=== PATIENT | female | born 1995 | race Caucasian/White ===

== ENCOUNTER 2020-04-17 08:26 | Outpatient (REF) | payer OTHER, SELFPAY ==
[2020-04-17 08:46] LABS: COVID-19 Test Negative (Negative)
== END 2020-04-17 08:27 | disposition home or self-care (01) ==
LOC: HO.EMPCOV 08:26
PROVIDERS: PCP Family Medicine; Visit Provider Internal Medicine
DX: Z20.822 Contact with and (suspected) exposure to COVID-19 (principal)
CPT/HCPCS: 36415; 87635; C9803

== ENCOUNTER 2021-10-26 14:05 | Outpatient (REF) | payer OTHER, SELFPAY ==
--- NOTE | ~2021-10-26 | US_ITS ---
EXAMINATION: US VENOUS DOPPLER LOWER EXTREMITY, RIGHT CLINICAL INFORMATION: Lower extremity varicose veins. COMPARISON: None TECHNIQUE: Color-flow triplex imaging and compression Doppler were performed to evaluate both the deep and the superficial systems of the right lower extremity. To evaluate the superficial system, the examination was performed in the upright position. Color-flow Doppler ultrasound and compression ultrasound were utilized. In addition, maneuvers were utilized to demonstrate reflux. Of note, the patient was only able to tolerate right lower extremity examination and declined evaluation of her left lower extremity. FINDINGS: 1. DEEP VENOUS DOPPLER ULTRASOUND: Common Femoral Vein: Compressible, normal respiratory variation and augmented flow. Femoral Vein: Compressible, normal color flow and augmentation. Popliteal Vein: Compressible, normal augmentation. Deep Reflux: There is no evidence of reflux in the deep system in either the common femoral vein or the popliteal vein. There is no evidence of a Blas's cyst. 2. SUPERFICIAL VENOUS DOPPLER ULTRASOUND: Great Saphenous Vein: Saphenofemoral junction/proximal thigh: 0.8 cm; greater than 3.2 seconds of reflux. Mid thigh: 0.5 cm; greater than 3.1 seconds of reflux. Above knee: 0.4 cm; no evidence of reflux. At knee: 0.4 cm; greater than 2.6 seconds of reflux. Below knee: 0.4 cm; greater than 2.1 seconds of reflux. Mid calf: 0.2 cm; greater than 1.8 seconds of reflux. Ankle: 0.4 cm; greater than 2.2 seconds of reflux. DUPLICATED GREAT SAPHENOUS VEIN: Lateral, measuring 2 mm at the junction without evidence of reflux. SMALL SAPHENOUS VEIN: Proximal: 3 cm; no evidence of reflux. Distal: 2 cm; no evidence of reflux. VEIN OF GIACOMINI: None imaged. PERFORATORS: Thigh and below knee measuring 2 mm and 3 mm, respectively. Neither guest services attendant demonstrates reflux. VARICOSITIES: Mid thigh, above knee, below knee and mid calf measuring between 2 mm and 6 mm. All imaged varicosities demonstrate reflux greater than 1.3 seconds. US/US venous duplex LE RT IMPRESSION: 1. Right great saphenous venous insufficiency beginning at the saphenofemoral junction/proximal thigh. 2. Multiple refluxing right lower extremity varicosities. 3. No evidence of DVT or deep venous insufficiency.
== END 2021-10-26 14:06 | disposition home or self-care (01) ==
LOC: HO.US 14:05
PROVIDERS: PCP Family Medicine; Visit Provider Surgery Vascular Surgery
DX: I83.893 Varicose veins of bilateral lower extremities with other complications (principal)
CPT/HCPCS: 93971

== ENCOUNTER 2021-11-07 11:34 | Outpatient (REF) | payer OTHER, SELFPAY ==
--- NOTE | ~2021-11-07 | US_ITS ---
EXAMINATION: US LOWER EXTREMITY VENOUS (REFLUX EXAM), UNILATERAL LEFT CLINICAL INDICATION: This is a 26-year-old female with venous insufficiency and varicose veins COMPARISON: None. TECHNIQUE: Color flow triplex imaging and compression Doppler was performed to evaluate both the deep and the superficial systems bilaterally. To evaluate the superficial system, the examination was performed in the upright position. Color-flow Doppler ultrasound and compression ultrasound were utilized. In addition, maneuvers were utilized to demonstrate reflux. FINDINGS: 3. DEEP VENOUS ULTRASOUND OF THE LEFT LOWER EXTREMITY: Common Femoral Vein: Compressible, normal respiratory variation and augmented flow. Femoral Vein: Compressible, normal color flow and augmentation. Popliteal Vein: Compressible, normal augmentation. Deep Reflux: There is no evidence of reflux in the deep system in either the common femoral vein or the popliteal vein. There is no evidence of a Blas's cyst. 4. SUPERFICIAL ULTRASOUND WITH DOPPLER OF LEFT LOWER EXTREMITY: GREAT SAPHENOUS VEIN: Saphenofemoral Junction: 0.9 cm Mid Thigh: 0.3 cm Above Knee: 0.4 cm Below Knee: 0.2 cm Mid Calf: 0.1 cm Ankle: 0.3 cm GSV REFLUX: No evidence of reflux. DUPLICATED GREAT SAPHENOUS VEIN: There is a 0.3 cm duplicated great saphenous vein without reflux. SMALL SAPHENOUS VEIN: Proximal: 0.2 cm Distal: 4.1 cm SSV REFLUX: No evidence of reflux. VEIN OF GIACOMINI: None Imaged. PERFORATORS: There are multiple 0.2 cm perforators in the mid thigh, mid calf without evidence of reflux. VARICOSITIES: There are multiple 0.3 cm, 0.5 cm, 0.8 cm varicose veins in the mid thigh and calf, respectively, without evidence of reflux. US/US venous duplex LE LT IMPRESSION: 1. There is a patent left great saphenous vein, duplicated left great saphenous vein, left small saphenous vein without evidence of reflux. 2. There are left leg varicose veins without evidence of reflux.
== END 2021-11-07 11:35 | disposition home or self-care (01) ==
LOC: HO.US 11:34
PROVIDERS: Visit Provider Surgery Vascular Surgery
DX: I83.12 Varicose veins of left lower extremity with inflammation (principal)
CPT/HCPCS: 93971

== ENCOUNTER → 2022-01-11 10:26 | Outpatient (BNVA) | payer OTHER, SELFPAY | PROVIDERS: PCP Family Medicine; Visit Provider Surgery Vascular Surgery | DX: I83.11 Varicose veins of right lower extremity with inflammation (principal) | CPT/HCPCS: 36482 ==

== ENCOUNTER 2022-01-14 08:10 | Outpatient (REF) | payer OTHER, SELFPAY ==
--- NOTE | ~2022-01-14 | US_ITS ---
EXAMINATION: US VENOUS ULTRASOUND WITH DOPPLER LOWER EXTREMITY, RIGHT CLINICAL INFORMATION: History of venous insufficiency, varicose veins, right leg pain. 3 days s/p venaseal procedure. COMPARISON: 11/07/2021 TECHNIQUE: Ultrasound of the deep veins is performed from the hip to the calf with compression sonography and color and pulse Doppler assessment. Spectral analysis with color-flow imaging is performed. FINDINGS: The common femoral vein is compressible and exhibits a normal phasic waveform; this suggests that the iliac veins are widely patent above. Within the proximal thigh, the visualized profunda femoris vein is normal. There has been a successful venaseal procedure. The greater saphenous vein is occluded to within 0.9 cm of the saphenofemoral junction. Superficial femoral vein is patent in the proximal, mid and distal thigh. Popliteal vein is normal to the level of the trifurcation. On compression guzman scale and color Doppler images, the visualized deep calf veins are patent. No evidence of Blas's cyst. US/US venous duplex LE RT IMPRESSION: * No evidence of deep vein thrombosis in the right lower extremity. * There has been a successful venaseal procedure. The greater saphenous vein is occluded to within 0.9 cm of the saphenofemoral junction. There is no propagation of thrombus into the femoral vein.
== END 2022-01-14 08:11 | disposition home or self-care (01) ==
LOC: HO.US 08:10
PROVIDERS: Visit Provider Surgery Vascular Surgery
DX: M79.604 Pain in right leg (principal)
CPT/HCPCS: 93971

== ENCOUNTER 2022-05-29 11:15 | Outpatient (REF) | payer OTHER, SELFPAY ==
[2022-05-29 14:36] LABS: Ferritin 29 ng/mL (10-122)
== END 2022-05-29 11:16 | disposition home or self-care (01) ==
LOC: HO.LAB 11:15
PROVIDERS: PCP Family Medicine; Visit Provider Physician Assistant Medical
DX: L65.9 Nonscarring hair loss, unspecified (principal)
CPT/HCPCS: 36415; 82728

== ENCOUNTER 2022-06-04 14:47 | Outpatient (REF) | payer OTHER, SELFPAY ==
[2022-06-04 15:40] LABS: Estimated Average Glucose 100 mg/dL; Hemoglobin A1c % 5.1 %
[2022-06-04 16:22] LABS: TSH reflex Free T4 0.69 uIU/mL (0.32-4.0)
[2022-06-05 13:09] LABS: DHEA Sulfate 202 mcg/dL (14-349); Follicle Stimulating Hormone 4.8 mIU/mL; Lutenizing Hormone 10.7 mIU/mL; Prolactin 5.7 ng/mL
[2022-06-12 10:42] LABS: Testosterone, Free 5.5 pg/mL (0.1-6.4); Testosterone, Total 32 ng/dL (2-45)
[2022-06-15 21:43] LABS: Estradiol Free 1.45 pg/mL; Estradiol, Ultrasensitive 56 pg/mL
== END 2022-06-04 14:48 | disposition home or self-care (01) ==
LOC: HO.LAB 14:47
PROVIDERS: PCP Family Medicine; Visit Provider Nurse Practitioner Family
DX: N92.6 Irregular menstruation, unspecified (principal)
CPT/HCPCS: 36415; 82627; 82670; 82681; 83001; 83002; 83036; 83498; 84146; 84402; 84403; 84443

== ENCOUNTER 2022-07-17 14:23 | Outpatient (REF) | payer OTHER, SELFPAY ==
[2022-07-17 15:07] LABS: Influenza A PCR NEGATIVE (Negative); Influenza B PCR NEGATIVE (Negative); Resp Syncy Virus RNA Qual PCR NEGATIVE (Negative); SARS COV2 PCR INHOUSE NEGATIVE (Negative)
== END 2022-07-17 14:24 | disposition home or self-care (01) ==
LOC: HO.LNP 14:23
PROVIDERS: Visit Provider Nurse Practitioner Family
DX: Z20.822 Contact with and (suspected) exposure to COVID-19 (principal); J00 Acute nasopharyngitis [common cold]
CPT/HCPCS: 0241U

== ENCOUNTER 2022-08-05 07:01 | Outpatient (REF) | payer OTHER, SELFPAY ==
[2022-08-05 07:16] LABS: MANUAL DIFF FLAG NO
[2022-08-05 08:05] LABS: Basophils Absolute Auto 0.1 X10*3/uL (0.0-0.2); Basophils Percent Auto 0.8 % (0-2); Eosinophils Absolute Auto 0.2 X10*3/uL (0.0-0.4); Eosinophils Percent Auto 1.8 % (0-4); Hematocrit 40.9 % (37.0-47.0); Hemoglobin 13.4 g/dl (12.0-16.0); Imm Gran Abs Auto 0.02 X10*3/uL (0.00-0.03); Imm Gran Pct Auto 0.2 % (0.0-0.4); Lymphocytes Absolute Auto 2.8 X10*3/uL (1.2-4.9); Lymphocytes Percent Auto 33.6 % (20-40); Mean Corpuscular HGB Conc 32.8 g/dl (31.0-35.0); Mean Corpuscular Hemoglobin 27.9 pg (27.0-33.0); Mean Platelet Volume 9.3 fL (9.4-12.3); Monocytes Absolute Auto 0.6 X10*3/uL (0.1-1.2); Monocytes Percent Auto 6.9 % (2-11); Neutrophils Absolute Auto 4.7 x10*3/uL (2.0-8.3); Neutrophils Percent Auto 56.7 % (45-73); Platelet Count 359 X10*3/uL (160-400); Red Blood Count 4.81 X10*6/uL (4.20-5.50); Red Cell Distribution Width 11.9 % (11.0-16.0); White Blood Count 8.3 X10*3/uL (4.8-10.8)
[2022-08-05 10:16] LABS: Alanine Aminotransferase 36 U/L (0-31); Albumin Level 4.2 g/dL (3.5-5.0); Alkaline Phosphatase 83 U/L (39-117); Anion Gap 13 (12-20); Aspartate Amino Transferase 28 U/L (5-31); Bilirubin Total 0.6 mg/dL (0.0-1.0); Blood Urea Nitrogen 15 mg/dL (9-16); Calcium 9.3 mg/dL (8.4-10.2); Carbon Dioxide 23 mmol/L (22-29); Chloride 108 mmol/L (96-108); Cholesterol 167 mg/dL; Estimated Glomerular Filt Rate > 60; Glucose Random 79 mg/dL (60-115); HDL Cholesterol 64 mg/dL; LDL Cholesterol Calculated 83 mg/dl; Potassium 4.1 mmol/L (3.3-5.1); Sodium 140 mmol/L (135-145); Total Protein 6.7 g/dL (6.5-8.0); Triglycerides 104 mg/dL
== END 2022-08-05 07:02 | disposition home or self-care (01) ==
LOC: HO.LAB 07:01
PROVIDERS: PCP Family Medicine; Visit Provider Family Medicine
DX: Z13.0 Encounter for screening for diseases of the blood and blood-forming organs and certain disorders involving the immune mechanism (principal); Z20.2 Contact with and (suspected) exposure to infections with a predominantly sexual mode of transmission; Z13.220 Encounter for screening for lipoid disorders; Z13.6 Encounter for screening for cardiovascular disorders; E55.0 Rickets, active
CPT/HCPCS: 36415; 80053; 80061; 82306; 85025

== ENCOUNTER 2022-08-07 07:17 | Outpatient (REF) | payer OTHER, SELFPAY ==
--- NOTE | ~2022-08-07 | US_ITS ---
EXAMINATION: US ABDOMEN LIMITED CLINICAL INFORMATION: Elevated liver enzymes. COMPARISON: None available. TECHNIQUE: Real-time imaging of the right upper quadrant abdominal viscera. FINDINGS: PANCREAS: Normal. LIVER: Liver echotexture is slightly increased. The liver is normal in size. The liver contour is normal. No focal hepatic lesion. There is no intrahepatic biliary duct dilatation seen. GALLBLADDER: Normal. The gallbladder is physiologically distended without evidence of stones, sludge, polyps, wall thickening or pericholecystic fluid. COMMON BILE DUCT: Normal in caliber measuring 0.3 cm in diameter. RIGHT KIDNEY: Normal. No hydronephrosis. No renal calculi or focal parenchymal lesions. The kidney measures 12.6 cm in maximum dimension. FREE FLUID: None. US/US abdomen limited IMPRESSION: Slightly echogenic liver.
== END 2022-08-07 07:18 | disposition home or self-care (01) ==
LOC: HO.US 07:17
PROVIDERS: PCP Family Medicine; Visit Provider Family Medicine
DX: R74.8 Abnormal levels of other serum enzymes (principal)
CPT/HCPCS: 76705

== ENCOUNTER 2023-06-24 14:51 | Outpatient (AMB) | payer OTHER, SELFPAY ==
--- NOTE | 2023-06-24 14:55 | A.OFFVIS_ITS ---
Intake Vital Signs 3 06/24/23 15:04 Height 5 ft 7 in Weight 242 lb 6 oz BMI 38.0 BP 135/67 Blood Pressure Location Lt brachial Position Sitting Pulse 90 Intake Visit Reasons: Cyst~ RT thigh Intake Note: Patient is seen in office for evaluation and treatment of a cyst of the right thigh. Pt c/o: admits to cyst on the right thigh, onset one year, on and off gets inflamed, painful, at times has a white spot but no discharge or opening denies redness or any other concerns Roustabout Supervisor Required: No Accompanied by: Self / Same As Patient Allergies No Known Allergies Allergy (Verified 06/24/23 15:00) Medication List - Last Reconciled 06/24/23 by Matthew Pinzon MD minoxidil 2.5 mg PO DAILY HPI HPI Comments 2 History of Present Illness0 Details 28-year-old female patient, ultrasound t ech at [facility] [place], presenting with painful cyst in the posterior right leg. She 1st noted the cyst approximately 1 year ago. She has had multiple recurrent episodes of inflammation where the cyst increases in size and becomes more painful. She denies any bleeding or discharge from the site. The site then resolved and becomes much smaller. The pain increases with sitting when inflamed. She is requesting excision of this painful cyst. [facility] Medical History Scoliosis Alopecia Family History Mother Varicose veins of bilateral lower extremities with other complications Social History Alcohol intake: current Alcohol intake frequency: holidays/special occasions only Patient Tobacco Use Status: Never used Tobacco Review of Systems Const All systems reviewed & are unremarkable except as noted in HPI and below Physical Exam Const General: cooperative and no acute distress Nutritional Appearance: well nourished Orientation/consciousness: patient oriented x3 Limitations: no limitations HEENT Head: Yes normocephalic and Yes atraumatic Ears: hearing grossly normal bilaterally Resp Effort & Inspection: normal respiratory effort, no audible wheezes, no cough and no respiratory distress Cardio Jugular venous distension: no JVD GI Inspection: Yes normal to inspection Back/Spine/Pelvis Back/spine/pelvis image: 2 1. 1 cm palpable cyst located in the posterior right thigh just below the buttock crease, small area of redness noted in the overlying skin. Findings are suggestive of a epidermal inclusion cyst. Skin Other: Warm, dry, no rash Neuro General: patient oriented x3 Extrem General: Yes no clubbing, cyanosis or edema Assessment & Plan Assessment & Plan (1) Epidermal inclusion cyst: Comment: Right posterior thigh Code(s): L72.0 - Epidermal cyst Plan 28-year-old female patient with recurrent episodes of infection involving and epidermal inclusion cyst in the posterior right thigh. Examination there is a 1 cm area of redness with a central punctum suggestive of a epidermal inclusion cyst. We discussed excision of this epidermal inclusion cyst as an office based procedure. After discussion of the procedure, risks, and alternatives, she consents to the surgery. Coding Level of Care Code New Pt Level 4 (61097) Diagnoses Epidermal inclusion cyst L72.0
[2023-06-24 15:04] VITALS: BP 135/67; PULSE 90; BMI 38.0
== END 2023-06-24 15:09 | disposition home or self-care (01) ==
PROVIDERS: PCP Family Medicine; Referring Provider Family Medicine; Visit Provider Surgery
DX: L72.0 Epidermal cyst (principal)
CPT/HCPCS: 99204

== ENCOUNTER → 2023-06-24 14:51 | Outpatient (BNVA) | payer OTHER, SELFPAY | PROVIDERS: PCP Family Medicine; Referring Provider Family Medicine; Visit Provider Surgery ==

== ENCOUNTER 2023-07-08 15:16 | Outpatient (AMB) | payer OTHER, SELFPAY ==
--- NOTE | 2023-07-08 15:22 | A.OFFVIS_ITS ---
Intake Vital Signs 07/08/23 15:26 Height 5 ft 7 in Weight 242 lb 8 oz BMI 38.0 BP 150/88 H Blood Pressure Location Lt brachial Position Sitting Pulse 83 Intake Visit Reasons: Exc Cyst~ RT thigh Intake Note: Patient is seen for office procedure, excision of right thigh cyst. Pt c/o; no concerns or changes since last visit Retail Security Professional Required: No Accompanied by: Self / Same As Patient Allergies No Known Allergies Allergy (Verified 07/08/23 15:28) HPI HPI Comments History of Present Illness Details Patient returns today for excision of an epidermal inclusion cyst posterior right leg PFSH Medical History Scoliosis Alopecia Family History Mother Varicose veins of bilateral lower extremities with other complications Social History Alcohol intake: current Alcohol intake frequency: holidays/special occasions only Patient Tobacco Use Status: Never used Tobacco Physical Exam Vital Signs: Last Vital Signs Pulse 83 07/08/23 15:26 BP 150/88 H 07/08/23 15:26 BMI result Body Mass Index 38.0 Office Procedures Excision Details: Preoperative diagnosis:Epidermal inclusion cyst posterior right leg Postoperative diagnosis: Same Procedure: Excision of epidermal inclusion cyst posterior right leg Surgeon: Matthew Pinzon MD Dog Boarder: None Anesthesia: Lidocaine 1% with epinephrine Indications for procedure: 28-year-old female patient presenting with a painful cyst of the posterior right leg Operative findings: Noninfected epidermal inclusion cyst posterior right leg 1 cm diameter Specimen: Epidermal inclusion cyst right posterior leg Estimated blood loss: 2 mL Complications: None Procedure details: Patient was brought to the procedure room and placed in a prone position. The site of surgery was confirmed by the patient in the posterior right leg. After assuring informed consent, the skin was prepped with Betadine and draped in a sterile fashion. Local anesthesia was then infiltrated around the palpable cyst. An elliptical incision was then created oriented transversely around the lesion. The lesion measured approximately 1 cm in diameter. The incision was carried down through the subcutaneous tissue and around the cyst wall. This was then passed off the table and sent to pathology for further examination. After assuring hemostasis, the skin was closed using interrupted 3-0 nylon sutures. Sterile dressings consisting of 2 x 2 gauze and Tegaderm were then applied. The patient tolerated the procedure well. She was discharged to home in stable condition. 25891-[id number]/arms/legs 0.6-1cm Procedure code (CPT) selection complete Assessment & Plan Assessment & Plan (1) Epidermal inclusion cyst: Comment: Right posterior thigh Code(s): L72.0 - Epidermal cyst Plan Patient will return in 1 week for suture removal. Orders: Orders Surgical Today L72.0 - Epidermal cyst Coding Level of Care Code Procedure Only Diagnoses Epidermal inclusion cyst L72.0 CPT Codes Trunk/Arms/Legs - CPT: 62885-sqbtl/arms/legs 0.6-1cm ([id number])
[2023-07-08 15:26] VITALS: BP 150/88; PULSE 83; BMI 38.0
== END 2023-07-08 15:49 | disposition home or self-care (01) ==
PROVIDERS: PCP Family Medicine; Visit Provider Surgery
DX: L72.0 Epidermal cyst (principal)
CPT/HCPCS: 11402

== ENCOUNTER 2023-07-08 15:16 | Outpatient (REF) | payer OTHER, SELFPAY | END 2023-07-08 15:17 | disposition home or self-care (01) | LOC: HO.LNP 15:16 | PROVIDERS: PCP Family Medicine; Visit Provider Surgery | DX: L72.0 Epidermal cyst (principal) | CPT/HCPCS: 88304 ==

== ENCOUNTER 2023-07-15 15:30 | Outpatient (AMB) | payer OTHER, SELFPAY ==
[2023-07-15 15:35] VITALS: BP 137/71; PULSE 85; BMI 39.0
--- NOTE | 2023-07-15 15:35 | MHC.OFFVIS ---
Intake Vital Signs 07/15/23 15:35 Height 5 ft 7 in Weight 249 lb BMI 39.0 BP 137/71 Blood Pressure Location Rt brachial Position Sitting Pulse 85 Intake Visit Reasons: S/p exc cyst right thigh-in office Intake Note: Patient is seen in office for post op assessment post office proc, excision of right thigh cyst. Pt c/o: redness, feels like it is inflamed. Denies oozing. Pharmacovigilance Specialist Required: No Accompanied by: Self / Same As Patient Allergies No Known Allergies Allergy (Verified 07/15/23 15:36) HPI HPI Comments History of Present Illness Details Patient returns 1 week following excision of a lesion of the posterior right leg. She reports some soreness possibly due to sitting on the incision. She returns today for suture removal. Pathology revealed benign findings. [facility] Medical History Scoliosis Alopecia Family History Mother Varicose veins of bilateral lower extremities with other complications Social History Alcohol intake: current Alcohol intake frequency: holidays/special occasions only Patient Tobacco Use Status: Never used Tobacco Physical Exam Vital Signs: Last Vital Signs Pulse 85 07/15/23 15:35 BP 137/71 07/15/23 15:35 BMI result Body Mass Index 39.0 Const General: comfortable and no acute distress Extrem Other: Excision site in the posterior right leg is clean, dry and intact. Sutures removed and the wounds found to be well healed. Assessment & Plan Assessment & Plan (1) Epidermal inclusion cyst: Comment: Right posterior thigh Code(s): L72.0 - Epidermal cyst Plan Patient returns for wound check following excision of lesion in the right leg. She tolerated the procedure well the wounds are healing nicely. She should follow up as needed. Coding Level of Care Code Global (31514) Diagnoses Epidermal inclusion cyst L72.0
== END 2023-07-15 15:43 | disposition home or self-care (01) ==
PROVIDERS: PCP Family Medicine; Visit Provider Surgery
DX: L72.0 Epidermal cyst (principal)
CPT/HCPCS: 99024

== ENCOUNTER → 2023-07-15 15:30 | Outpatient (BNVA) | payer OTHER, SELFPAY | PROVIDERS: PCP Family Medicine; Visit Provider Surgery ==

== ENCOUNTER 2023-07-30 07:11 | Outpatient (REF) | payer OTHER, SELFPAY ==
[2023-07-30 08:55] LABS: Estimated Average Glucose 108 mg/dL; Hemoglobin A1c % 5.4 % (<6.0)
== END 2023-07-30 07:12 | disposition home or self-care (01) ==
LOC: HO.LAB 07:11
PROVIDERS: Visit Provider Nurse Practitioner Family
DX: N92.6 Irregular menstruation, unspecified (principal)
CPT/HCPCS: 36415; 83036

== ENCOUNTER 2023-08-06 08:58 | Outpatient (REF) | payer OTHER, SELFPAY ==
--- NOTE | ~2023-08-06 | US_ITS ---
EXAMINATION: US PELVIS CLINICAL INFORMATION: Irregular menses. COMPARISON: None available. TECHNIQUE: Ultrasound of the pelvis is performed using both transabdominal and transvaginal transducers along with Doppler. Transvaginal imaging is performed due to inadequate visualization transabdominally. FINDINGS: UTERUS: The uterus is anteverted and measures 10.4 x 3.7 x 4.4 cm. The double wall endometrial thickness is 10 mm. The uterus is smooth in contour and has normal myometrial echogenicity. No visible fibroid. There is a large nabothian cysts present measuring 1.3 cm. ADNEXA: Both ovaries are visualized. There is normal color flow to the adnexa. There is no ovarian torsion. There is no pelvic ascites or fluid collection. Right ovary measures 3.7 x 2.7 x 2.7 cm for a volume of 14.1 mL and contains innumerable follicular cysts suggesting polycystic ovary disease. Left ovary measures 3.7 x 1.9 x 2.1 cm for a volume of 7.7 mL and contains multiple subserosal cysts suggesting polycystic ovary disease. US/US pelvic and transvaginal IMPRESSION: 1. Normal-appearing uterus. 2. Bilateral ovarian cysts suggesting polycystic ovary disease.
== END 2023-08-06 08:59 | disposition home or self-care (01) ==
LOC: HO.US 08:58
PROVIDERS: PCP Family Medicine; Visit Provider Nurse Practitioner Family
DX: N92.6 Irregular menstruation, unspecified (principal)
CPT/HCPCS: 76830; 76856

== ENCOUNTER 2023-08-12 08:08 | Outpatient (REF) | payer OTHER, SELFPAY ==
--- NOTE | ~2023-08-12 | XR_ITS ---
EXAMINATION: XR SCOLIOSIS SERIES CLINICAL INFORMATION: Thoracolumbar spinal scoliosis. COMPARISON: No relevant prior imaging. TECHNIQUE: Standing upright PA and lateral radiographs of the total spine were obtained. FINDINGS: Cervical spinal segmentation cannot be assessed. Otherwise there is a normal complement of 12 rib-bearing thoracic vertebra and 5 nonrib-bearing lumbar vertebra. There is no identifiable dysraphism. Global parmeters Coronal truncal balance: 3.1 cm negative Coronal regional parameters (Grace angle) Primary curve: 37 degrees, apex left at T11-T12 Secondary curve: 21 degrees, apex right at T7 Lungs are clear and well expanded. No focal consolidative disease, pleural effusion, or pneumothorax. The cardiac silhouette and upper mediastinal contours are normal. Visualized bowel gas pattern is normal. Solid organ contours are normal. No worrisome lytic or blastic osseous lesion within the [id number] of this examination. XR/XR scoliosis 1V IMPRESSION: Spinal scoliosis as described above. No identifiable dysraphism.
== END 2023-08-12 08:09 | disposition home or self-care (01) ==
LOC: HO.XRAY 08:08
PROVIDERS: PCP Family Medicine; Visit Provider Family Medicine
DX: M41.85 Other forms of scoliosis, thoracolumbar region (principal)
CPT/HCPCS: 72081

== ENCOUNTER 2023-08-14 07:21 | Outpatient (REF) | payer OTHER, SELFPAY ==
[2023-08-14 07:32] LABS: MANUAL DIFF FLAG NO
[2023-08-14 08:21] LABS: Basophils Absolute Auto 0.1 X10*3/uL (0.0-0.2); Eosinophils Absolute Auto 0.1 X10*3/uL (0.0-0.4); Eosinophils Percent Auto 1.9 % (0-4); Hematocrit 42.5 % (37.0-47.0); Imm Gran Abs Auto 0.02 X10*3/uL (0.00-0.03); Imm Gran Pct Auto 0.3 % (0.0-0.4); Lymphocytes Absolute Auto 2.3 X10*3/uL (1.2-4.9); Lymphocytes Percent Auto 32.2 % (20-40); Mean Corpuscular HGB Conc 32.9 g/dl (31.0-35.0); Mean Corpuscular Hemoglobin 28.6 pg (27.0-33.0); Mean Corpuscular Volume 86.9 fL (80.0-98.0); Mean Platelet Volume 9.7 fL (9.4-12.3); Monocytes Absolute Auto 0.5 X10*3/uL (0.1-1.2); Monocytes Percent Auto 6.7 % (2-11); Neutrophils Absolute Auto 4.2 x10*3/uL (2.0-8.3); Neutrophils Percent Auto 57.9 % (45-73); Platelet Count 319 X10*3/uL (160-400); Red Blood Count 4.89 X10*6/uL (4.20-5.50); Red Cell Distribution Width 11.8 % (11.0-16.0); White Blood Count 7.2 X10*3/uL (4.8-10.8)
[2023-08-14 08:54] LABS: Alanine Aminotransferase 31 U/L (0-31); Albumin Level 4.4 g/dL (3.5-5.0); Alkaline Phosphatase 78 U/L (39-117); Anion Gap 11 (12-20); Aspartate Amino Transferase 22 U/L (5-31); Bilirubin Total 0.6 mg/dL (0.0-1.0); Blood Urea Nitrogen 12 mg/dL (9-16); Calcium 9.7 mg/dL (8.4-10.2); Carbon Dioxide 24 mmol/L (22-29); Chloride 106 mmol/L (96-108); Cholesterol 147 mg/dL (<200); Estimated Glomerular Filt Rate > 60; Glucose Random 82 mg/dL (60-115); HDL Cholesterol 54 mg/dL (>40); LDL Cholesterol Calculated 73 mg/dL (<100); Sodium 137 mmol/L (135-145); Total Protein 7.3 g/dL (6.5-8.0); Triglycerides 100 mg/dL (<150)
[2023-08-14 09:15] LABS: Vitamin D 25-OH Total 18.2 ng/mL (>30)
== END 2023-08-14 07:22 | disposition home or self-care (01) ==
LOC: HO.LAB 07:21
PROVIDERS: PCP Family Medicine; Visit Provider Family Medicine
DX: Z13.0 Encounter for screening for diseases of the blood and blood-forming organs and certain disorders involving the immune mechanism (principal); Z20.2 Contact with and (suspected) exposure to infections with a predominantly sexual mode of transmission
CPT/HCPCS: 36415; 80053; 80061; 82306; 85025

== ENCOUNTER → 2024-02-13 08:12 | Outpatient (BNVA) | payer OTHER, SELFPAY | PROVIDERS: PCP Family Medicine; Visit Provider Internal Medicine | DX: Z13.89 Encounter for screening for other disorder (principal) | CPT/HCPCS: 99203 ==

== ENCOUNTER → 2024-02-18 07:54 | Outpatient (BNVA) | payer OTHER, SELFPAY | PROVIDERS: PCP Family Medicine; Visit Provider Internal Medicine | DX: Z13.89 Encounter for screening for other disorder (principal) | CPT/HCPCS: 99213 ==

== ENCOUNTER → 2024-02-27 08:18 | Outpatient (BNVA) | payer OTHER, SELFPAY | PROVIDERS: PCP Family Medicine; Visit Provider Internal Medicine | DX: Z13.89 Encounter for screening for other disorder (principal) | CPT/HCPCS: 99213 ==

== ENCOUNTER → 2024-03-05 08:03 | Outpatient (BNVA) | payer OTHER, SELFPAY | PROVIDERS: PCP Family Medicine; Visit Provider Internal Medicine | DX: Z13.89 Encounter for screening for other disorder (principal) | CPT/HCPCS: 99213 ==

== ENCOUNTER → 2024-03-17 08:09 | Outpatient (BNVA) | payer OTHER, SELFPAY | PROVIDERS: PCP Family Medicine; Visit Provider Internal Medicine | DX: Z13.89 Encounter for screening for other disorder (principal) | CPT/HCPCS: 99213 ==

== ENCOUNTER 2024-03-24 15:25 | Outpatient (RCR) | payer OTHER, SELFPAY ==
--- NOTE | 2024-02-27 13:51 | MHC.OT.EP ---
[address] [phone] Occupational Therapy Plan of Care Patient Name: Irish Lee Date of Evaluation: 02/27/24 Diagnosis: R thumb tendonitis Pain Location: volar side of hand Has not had been since Friday ; slight dull ache Pain Score: 0 Pain Scale Used: Numeric (0 - 10) Aggravating Factors: use of thumb/ use of US Alleviating Factors: resting/ relaxing Assessment: Pt is a 28 yr. 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 She reports pain while using the ultrasound machine and went to work connections to address her pain. She was on modified duty for 1 week and then took a week off to rest her wrist/thumb. Pt reports no pain today, has full AROM of her thumb, wrist, has a negative Finklestein, and a slight decreased hand draw bench operator. She reports fatigue of her R thumb nut denies pain and paresthesia. She has been referred to skilled OT therapy to manage sx's and increase the functional use of her R hand and thumb Frequency and Duration: The patient will be seen Short Term Goals: Pt will be compliant w/ her HEP Pt will be compliant w/ ergonomics while working to prevent thumb pain Shelter Goals: Pt will increase R hand draw bench operator to 90lbs Pt will RPLOF Treatment Plan: Therapeutic Exercise Therapeutic Activity Home Exercise Program Splinting Neuro Re-ed Patient Education Desensitization/Sensory Re-ed Edema Control ADL Training Ultrasound NMES Iontophoresis Paraffin Fluidotherapy MHP Cold Packs Joint Mobilization Soft Tissue Mobilization Kinesiotaping Other (see comments) Electronically Signed By: Lesia Ndiaye OTR/L Please Sign and return to therapist. Thank you once again for your referral.
--- NOTE | 2024-03-24 15:51 | MHC.OT.DC ---
[address] [phone] F: [phone] Occupational Therapy Discharge Note Patient Name: Irish Lee Provider: Micky Panchal Diagnosis: R thumb tendonitis Date of Surgery: Date of Evaluation: 02/27/24 Date of Discharge: Treatments to Date: 8 Cancellations to Date: No Shows to Date: Discharge Status: Achieved Goals Discharge Summary: Pt has met her LTGs and is Ok to be d/charged; pt is in agreement Electronically Signed By: Lesia Ndiaye OTR/L Reviewed/agree with student documentation: N/A Therapist: Please Sign and return to therapist, thank you for your referral.
== END 2024-03-24 15:51 | disposition home or self-care (01) ==
LOC: HO.OT 15:25
PROVIDERS: PCP Family Medicine; Visit Provider Internal Medicine
DX: M79.644 Pain in right finger(s) (principal)
CPT/HCPCS: 97035; 97110; 97140; 97165; 97535

== ENCOUNTER 2024-03-29 09:14 | Outpatient (REF) | payer OTHER, SELFPAY | END 2024-03-29 09:15 | disposition home or self-care (01) | LOC: HO.HOSX 09:14 | DX: M65.4 Radial styloid tenosynovitis [de Quervain] (principal); M79.641 Pain in right hand | CPT/HCPCS: 20550; 73130; 99202; J1100; J2003 ==

== ENCOUNTER 2024-03-29 11:01 | Outpatient (AMB) | payer OTHER, SELFPAY ==
--- OUTSIDE RECORDS SUMMARY | 2024-03-29 11:06 | XMS_ITS | Data Portability ---
Author Organization [facility] [email or web address], [email or web address]_admin Address [address] [place] [id number] Care Team Providers Care Ignition Expert Name Role Phone STEPHANIE MELENDEZ Primary Care Provider [phone] AMARILYS WRIGHT Press Reader PAMELLA PETERSEN Vascular Surgeon DAVINA SMITH Rehabilitation Therapist Assessment Encounter Date Assessment Date Assessment LastModified by Organization Details LastModified Time 08/11/2023 08/11/2023 consider metformin, wegovy consider hand surgeon referral consider ORTHO and PT referral for scoliosis Not available 08/11/2023 09:05:22 Plan of Treatment Reminders Order Date Submit Date Provider Last Modified By Organization Details Last Modified Time Details Appointments Physical 30 2024 03:30P M Fco Mondragon CNP Not available Not available Not available Lab prolactin , serum 2022 023 [email or web address] [facility], [address] [place] [address], [id number], 06/11/2022 08:54:14 testoster one, free + total, serum 2022 023 [email or web address] [facility], [address] [place] [address], [id number], 06/11/2022 08:54:15 estradiol , serum 2022 023 ALLY [facility], [address] [place] [address], [id number], 06/17/2022 12:17:14 lh + FSH, serum 2022 023 [email or web address] [facility], [address] [place] [address], [id number], 06/11/2022 08:54:15 HbA1c (hemoglob in A1c), blood 2022 023 [email or web address] [facility], [address] [place] [address], [id number], 06/14/2022 10:55:31 dhea-sulf ate, serum 2022 023 [email or web address] [facility], [address] [place] [address], [id number], 06/11/2022 08:54:15 TSH, ultra-sen sitive, serum 2022 023 [email or web address] [facility], [address] [place] [address], [id number], 06/14/2022 10:55:31 17-hydrox yprogeste jennifer, QN, serum 2022 023 [email or web address] [facility], [address] [place] [address], [id number], 06/14/2022 11:01:37 CBC w/ auto diff 2022 023 ALLY [facility], [address] [place] [address], [id number], 08/05/2022 11:20:02 lipid panel, serum 2022 023 ALLY [facility], [address] [place] [address], [id number], 08/05/2022 11:20:02 vitamin D, 25-hydrox y, total, serum 2022 023 ALLY [facility], [address] [place] [address], [id number], 08/05/2022 11:20:02 CMP, serum or plasma 2022 023 ALLY [facility], [address] [facility], [place] [address], [place], [address], 08/05/2022 11:20:01 vaginal pathogens panel, VIKTORIA+probe , vaginal fluid 2023 024 ALLY [facility], [address] , [place], [address], 07/21/2023 20:06:45 HbA1c (hemoglob in A1c), blood 2023 024 ALLY [facility], [address] , [place], [address], 08/12/2023 08:53:46 CBC w/ auto diff 2023 024 [place] [facility], [address] [place] [address], [place] [address], [place], [address], 08/14/2023 11:27:20 lipid panel, serum 2023 024 [place] [facility], [address] [place] [address], [place] [address], [place], [address], 08/14/2023 11:27:20 vitamin D, 25-hydrox y, total, serum 2023 024 ALLY [facility], [address] [place] [address], [address], [address], 08/14/2023 11:27:20 TSH, ultra-sen sitive, serum 2023 024 5 [facility], [address] , [place], [address], 09/09/2023 15:47:29 CMP, serum or plasma 2023 024 ALLY [facility], [address] [place] [address], [address], [address], 08/14/2023 11:27:20 Referral occupatio nal therapist referral 2023 024 [email or web address] 5 [facility], [address], [place], [address], 02/16/2024 09:54:21 Procedures None recorded. Surgeries None recorded. Imaging US, pelvis - complete pelvic US 2023 024 [email or web address] [facility] (Imaging), [address] [place], [address], 08/26/2023 08:31:40 XR, spine, scoliosis series - please measure if possible 2023 024 [facility] ([facility]), [address] [place], [address], 08/13/2023 06:41:35 Medication Orders clotrimaz ole 1 % topical cream 2022 023 [place] [id number], [address] [place], [address], 08/01/2022 09:53:43 Patient TargetsNo targets recorded. Patient Instructions Encounter Date Encounter Id Patient Instructions Last Modified By Organization Details Last Modified Time 06/04/2022 [id number] body mass index: care instructions Not available 06/04/2022 11:03:50 Reviewed screeni ng intervals for Pap smear and discussed importance of annual meal packer visit regardless of when next pap smear is due. Reviewed breast self-awareness (monthly self-checks the week after menses as optimal time) with patient, and screening intervals for breast cancer. I also discussed daily calcium and vitamin D intake, she should maintain at least 1000 mg calcium and 600 IU vitamin D in her daily diet and perform weight bearing exercise to prevent osteoporosis. Reviewed self skin monitoring for early detection of skin cancer and use of sunscreen >SPF 30/skin coverings during peak sun exposure hours to prevent skin cancer. Recommended immunizations including HPV, flu, and COVID-19 vaccines. Encouraged healthy balanced diet and regular weekly exercise. Advised her to call with any concerns or questions at any time. [email or web address] Not available 06/04/2022 11:01:36 08/01/2022 [id number] athlete's foot: care instructions Not available 08/01/2022 09:53:41 body mass index: care instructions Not available 08/01/2022 09:56:21 learning about healthy weight Not available 08/01/2022 09:56:21 Reason for Referral Occupational Therapist Refer ral for Tendinitis of right hand Referring Physician: Stephanie Melendez, Family Medicine, Encounter Date: 08/11/2023 Results Created Date Observation Date Name Description Value Unit Range Abnormal Flag Note LastModifiedBy Organization Detail LastModifiedTime 07/18/19 24 07/20/2023 NUSWA B VAGIN ITIS PLUS (VG+) atopobium vaginae Low - 0 score Not Available [facility] ([facility]) [address] [facility], [place], [address], 07/21/2023 20:06:45 07/18/19 24 07/20/2023 NUSWA B VAGIN ITIS PLUS (VG+) bvab 2 Low - 0 score Not Available [facility] ([facility]) [address] [facility], [place], [address], 07/21/2023 20:06:45 07/18/19 24 07/20/2023 NUSWA B VAGIN ITIS PLUS (VG+) megasphaera 1 Low - 0 score Calcu late total score by yevgeniy gilbert the 3 indiv idual bacte rial vagin osis (BV) marke r score s toget her. Total score is inter prete d as follo ws: Total score 0-1: Indic ates the absen ce of BV. Total score 2: Indet ermin ate for BV. Addit ional clini victor hugo data shoul d be evalu ated to estab leola a diagn osis. Total score 3-6: Indic ates the prese nce of BV. This test was devel oped and its perfo rmanc e cassandra cteri stics deter mined by [facility]. It has not been clear ed or appro dion by the Food and Drug Admin istra tion. Not Available [facility] ([facility]) [address] [facility], [place], [address], 07/21/2023 20:06:45 07/18/19 24 07/20/2023 NUSWA B VAGIN ITIS PLUS (VG+) gavin albicans, VIKTORIA Negati ve negati ve Not Available [facility] ([facility]) [address] [facility], [place], [address], 07/21/2023 20:06:45 07/18/19 24 07/20/2023 NUA B VAGIN ITIS PLUS (VG+) gavin glabrata, VIKTORIA Negati ve negati ve Not Available [facility] ([facility]) [address] [facility], [place], [address], 07/21/2023 20:06:45 07/18/19 24 07/21/2023 NUA B VAGIN ITIS PLUS (VG+) trich vag by VIKTORIA Negati ve negati ve Not Available [facility] ([facility]) [address] [facility], [place], [address], 07/21/2023 20:06:45 07/18/19 24 07/21/2023 NUA B VAGIN ITIS PLUS (VG+) chlamydia trachomatis, VIKTORIA Negati ve negati ve Not Available [facility] ([facility]) [address] [facility], [place], [address], 07/21/2023 20:06:45 07/18/19 24 07/21/2023 NUA B VAGIN ITIS PLUS (VG+) neisseria gonorrhoeae, VIKTORIA Negati ve negati ve Not Available [facility] ([facility]) [address] [facility], [place], [address], 07/21/2023 20:06:45 08/14/19 23 08/07/2022 US, abdom en, limit ed No observ ation record ed. [email or web address] [address], [address], 08/27/2022 12:53:01 08/10/19 24 08/06/2023 US, pelvi s, trans abdom inal + trans vagin al No observ ation record ed. [email or web address] [facility] [address] [place], [address], 08/26/2023 08:30:52 08/13/19 24 08/12/2023 XR, spine , scoli osis serie s No observ ation record ed. ALLY [facility] [address] [place], [address], 08/14/2023 22:04:32 Result Notes None recorded. Problems Name Problem SNOMED Code Status Onset Date Resolution Date Notes Provider Name and Address Organization Details Recorded Time Polycysti c ovary syndrome 890252319 Active 2023 Fco Mondragon, ADVERTISING SALES ASSISTANT [address] [place] [address], [phone], [facility] 4 08:44:39 Alopecia areata 82712431 Active pt started at age 5 Stephanie Melendez MD [address] [place] [address], [address], [facility] 5 09:24:26 Alopecia [id number] Completed 11/15/2014 Stephanie Melendez MD [address] [place] [address], [phone], [facility] 5 09:06:38 Scoliosis of lumbar spine 386591753 Active Stephanie Melendez MD [address] [place] [address], [address], [facility] 4 15:07:29 Disorder of knee 455075354 Siva Melendez MD [address] [place] [address], [phone], [facility] 4 14:24:52 Serum thyroid stimulati ng hormone level outside reference range 853218105 Siva Melendez MD [address] [place] [address], [address], [facility] 4 14:24:52 Irregular periods 95011248 Active 2017 Stephanie Melendez MD [address] [place] [address], [address], [facility] 8 16:31:44 Venereal disease screening Active 2017 Stephanie Melendez MD [address] [place] [address], [phone], [facility] 8 16:32:15 Body mass index 30+ - obesity 208795822 Active 2017 Stephanie Melendez MD [address] [place] [address], [address] [place] [address], [facility] 8 16:35:48 Scoliosis deformity of spine 722114447 Active 2017 Stephanie Melendez MD [address] [place] [address], [address], [facility] 8 16:35:49 Neck pain 13419157 Active 2017 Stephanie Melendez MD [address] [place] [address], [address] [place] [address], [facility] 8 16:35:51 Adjustmen t disorder with anxious mood 11578222 Active 2018 Stephanie Melendez MD [address] [place] [address], [address], [facility] 9 08:33:47 Acute sinusitis 79510717 Active 2018 Stephanie Melendez MD [address] [place] [address], [address], [facility] 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 2 20:41:38 Gastroeso phageal reflux disease 576629073 Active 2021 Stephanie Melendez MD [address] [place], [address], [facility] 20:41:40 Problem Notes None recorded. Procedures Surgical History Date Name Laterality Status Provider Name and Address Organization Details Recorded Time Skin Tag Removal w Lidocaine completed Fco Mondragon CNP [address] [place], [address], [facility] 05/31/2021 08:58:24 No Previous Surgeries completed Sarahi Peace [facility] 08/01/2022 08:43:38 varicose vein operation completed Sarahi Peace [facility] 08/01/2022 08:53:12 Imaging Results Imaging Date Name Status LastModified by Organization Details LastModified Time 08/07/2022 US, abdomen, limited completed [email or web address] [address], [address], 08/27/2022 12:53:01 08/06/2023 US, pelvis, transabdominal + transvaginal completed [email or web address] [address], [address], 08/26/2023 08:30:52 08/12/2023 XR, spine, scoliosis series completed [address], [address], 08/14/2023 22:04:32 Procedure Notes None recorded. Medical Equipment None Reported. Allergies No known drug allergies Medications Name Sig Start Date Stop Date Status Note LastModified by Organization Details LastModified Time azithromyci n 250 mg tablet TAKE 2 TABLETS BY MOUTH TODAY, THEN TAKE 1 TABLET DAILY FOR 4 DAYS 06/24 completed Not Available Not Available Not Available ibuprofen 800 mg tablet take 1 tablet within 1 hour prior to procedure and repeat 1 tablet every 8 hours as needed for pain 08/01 completed Not Available Not Available Not Available Cytotec 200 mcg tablet apply 1 tablet in vagina at bedtime night before procedure 06/24 completed Not Available Not Available Not Available clobetasol 0.05 % topical cream APPLY TOPICALLY TO DAMP SCALP INSTRUCTE D APPLY A THIN FILM 06/04 completed Not Available Not Available Not Available minoxidil 2.5 mg tablet TAKE 1/2 TABLET BY MOUTH DAILY active Not Available Not Available No t Available ketoconazol e 2 % topical cream APPLY TO THE AFFECTED AREA(S) BY TOPICAL ROUTE TWICE DAILY FOR DERMAL MYCOSI 06/04 completed Not Available Not Available Not Available clobetasol 0.05 % scalp solution APPLY TO THE AFFECTED SCALP AREA BY TOPICAL ROUTE 2 TIMES PER DAY IN THE MORNING AND EVENING 11/27 completed Not Available Not Available Not Available fluticasone propionate 50 mcg/actuati on nasal spray,suspe nsion SPRAY TWICE INTO EACH NOSTRIL DAILY 06/29 completed Not Available Not Available Not Available clotrimazol e 1 % topical cream APPLY TO THE FEET AREA WITH RASH TWICE A DAY 07/13 completed Not Available Not Available Not Available loratadine 10 mg tablet TAKE 1 TABLET BY MOUTH EVERY DAY 06/29 completed Not Available Not Available Not Available spironolact one 50 mg tablet PLEASE SEE ATTACHED FOR DETAILED DIRECTION S active Not Available Not Available No t Available amoxicillin 500 mg-potassiu m clavulanate 125 mg tablet active Not Available Not Available Not Available clobetasol- emollient 0.05 % topical cream active Not Available Not Available Not Available chlorhexidi ne gluconate 0.12 % mouthwash RINSE WITH HALF A CAPFUL TWICE A DAY. SPIT AND DO NOT SWALLOW. 06/04 completed Not Available Not Available Not Available Vitamin D3 50 mcg (2,000 unit) capsule Take 2 capsules every day by oral route for 90 days. 2023 active Not Available Not Available Not Avai lable [facility] n 07/13 completed Not Available Not Available Not Available Vitals Date Recorded Body height Body mass index (BMI) Body weight Body temperature Heart rate Oxygen saturation Oxygen saturation in Arterial blood by Pulse oximetry Systolic blood pressure Diastolic blood pressure Provider Name and Address Organization Details Last Updated DateTime 3 168.91 cm 37 kg/m2 117517. 02 g 97.2 [degF] 74 /min 98 % 98 % 109 mm[Hg] 72 mm[Hg] [facility] 09[facility]54 Date Recorded Body height Body mass index (BMI) Body weight Body temperature Heart rate Oxygen saturation Oxygen saturation in Arterial blood by Pulse oximetry Systolic blood pressure Diastolic blood pressure Provider Name and Address Organization Details Last Updated DateTime 3 168.91 cm 36.9 kg/m2 439932. 43 g 97.3 [degF] 72 /min 98 % 98 % 98 mm[Hg] 70 mm[Hg] YADIEL Thomas [facility] 3 08:56:19 Date Recorded Body height Body mass index (BMI) Body weight Heart rate Systolic blood pressure Diastolic blood pressure Provider Name and Address Organization Details Last Updated DateTime 4 168.91 cm 38.6 kg/m2 212094. 51 g 78 /min 123 mm[Hg] 82 mm[Hg] [facility] 4 15:04:58 Date Recorded Body height Respiratory rate Body mass index (BMI) Body weight Body temperature Oxygen saturation Oxygen saturation in Arterial blood by Pulse oximetry Heart rate Systolic blood pressure Diastolic blood pressure Provider Name and Address Organization Details Last Updated DateTime 4 168.91 cm 18 /min 38 kg/m2 449543. 86 g 97.6 [degF] 97 % 97 % 72 /min 106 mm[Hg] 69 mm[Hg] Kia Acosta i [facility] 4 08:22:40 Social History Question Answer Notes LastModified by Organizat ion Details LastModified Time Tobacco Smoking Status Never Smoker Antonia Ángel jeffery [facility] 11/11/2013 14:40:12 Do You Have An Advance Directive? No [email or web address] Information not available 11/27/2017 What Is Your Level Of Alcohol Consumption? Occasional [email or web address] Information not available 11/20/2017 Are You Blind Or Do You Have Difficulty Seeing? No Information not available 05/31/2021 Is Blood Transfusion Acceptable In An Emergency? Yes Information not available 05/31/2021 What Is Your Level Of Caffeine Consumption? Occasional Information not available 06/04/2022 How Much Tobacco Do You Chew? None Information not available 07/18/2023 Are You Currently Employed? Yes Information not available 05/31/2021 Are You Deaf Or Do You Have Serious Difficulty Hearing? No Information not available 05/31/2021 What Type Of Diet Are You Following? REGULAR Information not available 11/11/2013 Do You Or Have You Ever Used E-cigarettes Or Vape? 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 Right Information not available 05/31/2021 If Pulse Oximetry Was Done: Is The Patient's Sp02 Less Than 93% On Room Air? No Information not available 08/01/2022 What Was The Date Of Your Most Recent Tobacco Screening? 08/11/2023 [email or web address] Information not available 08/11/2023 Have You Ever Been Counseled For Unhealthy Alcohol Use? No Information not available 08/01/2022 Do You Have Any Pets? No Information not available 08/01/2022 What Is Your Relationship Status? Single 0 Children Information not available 08/01/2022 Do You Or Have You Ever Used Smokeless Tobacco? Never Used Smokeless Tobacco Information not available 07/18/2023 Do You Feel Stressed (tense, Restless, Nervous, Or Anxious, Or Unable To Sleep At Night)? [id number] Information not available 05/31/2021 Do You Use Any Illicit Or Recreational Drugs? No Information not available 05/31/2021 Has Tobacco Cessation Counseling Been Provided? No Information not available 08/01/2022 Do You Or Have You Ever Used Any Other Forms Of Tobacco Or Nicotine? No Information not available 05/31/2021 How Many Days In The Past Year Have You Consumed 4 Or More Drinks? 0 Information not available 08/01/2022 Sex: Female Functional Status Question Answer Note LastModified by Organizat ion Details LastModified Time Are you able to care for yourself? Yes Information not available 05/31/2021 What is your exercise level? Occasional Information not available 11/15/2014 Mental Status None recorded. Family History Relationship Description Onset Age of this Age Resolved Age Notes LastModified by Organization Details LastModified Time Mother Vertigo [email or web address] Not available 15:00:50 Maternal Uncle Hearing disorder [email or web address] Not available 2023 15:00:50 Maternal Grandfather Alopecia areata [email or web address] Not available 2023 15:00:50 Father Malignant tumor of prostate [email or web address] Not available 2023 15:00:50 Maternal Aunt Hearing disorder [email or web address] Not available 2023 15:00:50 Maternal Grandmother Myocardial infarction Not available 11/15 09:08:57 Medical History Condition Response HIV or AIDS N High Blood Pressure (Hypertension) N Eye Problems (Glaucoma, Retinopathy, Mac ular Degeneration) N Kidney Stones N Hyperthyroidism N Heart Arrhythmia N Back/Neck Pain N Hypothyroidism N Sleep Problems N Depression N Sore Throat N Frequent Falls N Has Pacemaker N Soft Tissue Swelling N CHF (Congestive Heart Failure) N Obstructive Sleep Apnea N Anxiety Disorder N Dizziness N Obesity N Arthritis N Foot Problems N Hot Flashes N Heart Attack (Myocardial Infarction) N Heart Disease/Valve Disease N Cancer N Blood in Stool N Urinary Problem N ADHD N Diverticulitis (Inflammation of the mily l) N Headache N Endometriosis N Shortness of Breath N Hypercholesterolemia N Stroke/TIA N Allergy Symptoms N Aortic Aneurysm N Liver Disease N Organ Transplant N Change in Periods N Fibromyalgia N Dialysis N Hiatal Hernia N Kidney Disease N Hearing Problem N Fatigue N Deep Vein Thrombophlebitis N Joint Pain N Blood Clot (Deep Vein Thrombosis) N Anemia N Cough N Chest Pain N Heartburn N Abdominal Pain N Pulmonary Embolism (Blood Clot in the Adriane ng) N Gait Instability N Ulcers N Peripheral Vascular Disease (PVD) N Bleeding Disorder/DVT N Leg Swelling N Diabetes N Difficulty swallowing N Palpitations N Amenorrhea N Osteopenia/Osteoporosis N Fibroids N Heart Murmur N Tuberculosis N HPV (Human Papillomavirus) N Overweight/Obesity Y Asthma N Weight Gain / Loss +/- 10 lbs N COPD (Chronic Obstructive Pulmonary Dise ase) N GERD/Reflux N Other Disease(s): Y MRSA (Antimicrobial Resistance) N No Past Medical Problems Reported N Meniere's Disease N Chronic Ear Infections N CAD (Coronary Artery Disease) N Thyroid Disease/Disorder N Change in Bowels N Nasal Polyps N Gynecological History Statement/Question Response History of Endometriosis N Flow Moderate Date of LMP 05/15/2023 Last Annual Exam Date 06/13/2021 Date of last pap 05/31/2021 Number of Terminations? 0 Number of Abortions 0 Number of Pregnancies? 0 History of Abnormal Pap Smear? N Number of Miscarriages? 0 Date of last mammogram not age appropria te History of polycystic ovarian disease Y Total # of Births 0 Duration of Flow (days) 5 Age at Menarche 15 Current Control Method Abstinence Abnormal MMG N Result of last mammogram n/a Most Recent Bone Density Frequency of Cycle (Q days) Menses Monthly Y Number of Live Births? 0 LMP Definite Colonoscopy Obstetrics History GPAL:G 0 P 0 0 0 0 Immunizations Vaccine Type Date Status Note Provider Nam e and Address Organization Details Recorded Time meningococcal MCV4P 5 completed Not Available [facility] 05/01/2019 02:10:03 Tdap 8 completed Not Available [facility] 05/01/2019 02:14:01 varicella 1 completed YADIEL Thomas null, [facility] 08/01/2022 09:48:45 varicella 2 completed YADIEL Thomas null, [facility]. 08/01/2022 09:48:45 meningococcal ACWY, unspecified formulation 8 completed YADIEL Thomas null, [facility]. 08/01/2022 09:49:02 MMR 8 completed Bijal jeffery [facility] 11/21/2017 11:57:53 MMR 2 completed Bijal jeffery [facility] 11/21/2017 11:58:02 polio, unspecified formulation 7 completed YADIEL Thomas null, [facility] 08/01/2022 09:49:03 polio, unspecified formulation 7 completed YADIEL Thomas null, [facility] 08/01/2022 09:49:03 polio, unspecified formulation 7 completed Sarahidevi Peace [facility] null, [facility] 08/01/2022 09:49:03 polio, unspecified formulation 2 completed Sarahidevi Peace NCMA null, [facility] 08/01/2022 09:49:03 Tdap 8 completed Bijal Harris null, [facility] 11/21/2017 12:00:44 COVID-19, mRNA, LNP-S, PF, 30 mcg/0.3 mL dose 0 completed Sarahidevi Peace NCMA null, [facility] 08/01/2022 09:48:45 COVID-19, mRNA, LNP-S, PF, 30 mcg/0.3 mL dose 1 completed Sarahidevi Peace NCMA null, [facility] 08/01/2022 09:48:45 COVID-19, mRNA, LNP-S, PF, 30 mcg/0.3 mL dose 1 completed Sarahidevi Peace NCMA null, [facility] 08/01/2022 09:48:45 Influenza, MDCK, quadrivalent, PF 8 completed Sarahidevi Peace NCMA null, [facility] 08/01/2022 09:48:44 Influenza, MDCK, quadrivalent, PF 7 completed Sarahi Ryjustyna NCMA null, [facility] 08/01/2022 09:48:45 OPV 7 completed Sarahi Ryjustyna [facility] null, [facility] [facility] 08/01/2022 09:48:45 OPV 7 completed Sarahidevi Peace NCMA null, [facility] 08/01/2022 09:48:45 OPV 2 completed Sarahi Nata NCMA null, [facility] 08/01/2022 09:48:45 OPV 7 completed Sarahi Ryel, NCMA null, [facility] 08/01/2022 09:48:45 HPV, quadrivalent 9 completed Sarahi Ryel, NCMA null, [facility] 08/01/2022 09:48:45 HPV, quadrivalent 9 completed Sarahi Ryel, NCMA null, [facility] 08/01/2022 09:48:45 HPV, quadrivalent 8 completed Sarahi Ryel, NCMA null, [facility] 08/01/2022 09:48:45 Hep B, adult 7 completed Sarahi Ryel, NCMA null, [facility] 08/01/2022 09:48:45 Hep B, adult 7 completed Sarahi Ryel, NCMA null, [facility] 08/01/2022 09:48:45 Hep B, adult 7 completed Sarahi Ryel, NCMA null, [facility] 08/01/2022 09:48:45 Hep B, adult 7 completed Sarahi Ryel, NCMA null, [facility] 08/01/2022 09:48:45 Hep B, adult 7 completed Sarahi Ryel, NCMA null, [facility] 08/01/2022 09:48:45 Hep B, adult 6 completed Sarahi Ryel, NCMA null, [facility] 08/01/2022 09:48:45 Hep A, adult 8 completed Saraih Ryel, NCMA null, [facility] 08/01/2022 09:48:45 Hib (PRP-OMP) 8 completed Sarahi Ryel, NCMA null, [facility] 08/01/2022 09:48:45 Hib (PRP-OMP) 7 completed Sarahidevi Peace NCMA null, [facility] 08/01/2022 09:48:45 Meningococcal MCV4O 8 completed Sarahidevi Peace NCMA null, [facility] 08/01/2022 09:48:45 DTaP, 5 pertussis antigens 2 completed Sarahidevi Peace NCMA null, [facility] 08/01/2022 09:48:45 DTaP, 5 pertussis antigens 7 completed Sarahi Ryjustyna NCMA null, [facility] 08/01/2022 09:48:45 DTaP, 5 pertussis antigens 8 completed Sarahidevi Peace NCMA null, [facility] 08/01/2022 09:48:45 DTaP-Hib 7 completed Sarahi Peace NCMA null, [facility] 08/01/2022 09:48:45 DTaP-Hib 7 completed Sarahidevi Peace NCMA null, [facility] 08/01/2022 09:48:45 Influenza, split virus, quadrivalent, PF 1 completed Sarahidevi Peace NCMA null, [facility] 08/01/2022 09:48:45 Influenza, split virus, quadrivalent, PF 0 completed Sarahidevi Peace NCMA null, [facility] 08/01/2022 09:48:45 Influenza, split virus, quadrivalent, PF 2 completed Sarahi Ryjustyna NCMA null, [facility] 08/01/2022 09:48:45 Influenza, split virus, quadrivalent, PF 9 completed Sarahi Ryjustyna NCMA null, [facility] 08/01/2022 09:48:45 Past Encounters Encounter ID Performer Location Encounter Start Date Encounter Closed Date Diagnosis/Indication Diagnosis SNOMED-CT Code Diagnosis ICD10 Code [id number] [facility] office [address] [place] [address]992 9 11/11/2013 14:05:50 11/11/2013 15:26:31 Well child [id number] Alopecia 60740651 Scoliosis of lumbar spine 015631117 [id number] Celeste Templeton [facility] office [address] [place] [address]764 9 02/16/2014 10:51:53 02/16/2014 13:31:46 Disorder of knee [id number] Alopecia 70160120 [id number] [facility] office [address] [place] [address] 9 03/01/2014 12:56:14 03/01/2014 15:27:49 Disorder of knee 831060887 Serum thyr oid stimulating hormone level outside reference range 247165026 [id number] Timbreann Reneeine [facility] office [address] [place] [address]072 9 11/15/2014 08:04:16 11/15/2014 09:33:45 Well child [id number] Alopecia areata 50674178 Requires a meningitis vaccination 772370645 [id number] Stephanie Melendez MD [facility] awake overnight counselor [address] [place] [address] 3 11/20/2017 15:42:29 11/21/2017 12:09:27 Adult health examination 142575843 Z00.00 Irregular periods 508691 07 N92.6 Venereal d isease screening 233753079 Z11.3 Body mass index 30+ - obesity 456842575 Z68.39 Scoliosis deformity of spine 627177568 M41.9 Neck pain 23923079 M54.2 [id number] MD [facility]oc[facility] [place] [facility] BELIA MENDEZ [address] 1 11/27/2017 08:25:33 11/27/2017 09:20:09 Gynecologic examination 84007039 Z01.411 Irregular intermenstrual bleeding 74674145 N92.1 Body mass index 30+ - obesity 028579915 Z68.33 [id number] MD [facility] [address] [address] 1 12/04/2017 08:49:57 12/04/2017 10:31:32 Irregular periods 30859915 N92.6 Body mass index 30+ - obesity 093275081 Z68.34 [id number] MD Jam Harvey awake overnight counselor[address] [address] 03/30/2018 16:04:32 03/30/2018 16:36:25 Upper respiratory infection 17396448 J06.9 Fluid leve l behind tympanic membrane 550883320 H65.20 Goiter 7534877 E04.9 [id number] MD [facility]oc[facility] [address] [address] 1 06/29/2018 10:42:25 06/29/2018 13:04:16 Contraception care management 472907421 Z30.9 Body mass index 30+ - obesity 072896304 Z68.34 [id number] MD Jam Alvarez awake overnight counselor[address] [address] 01/04/2019 07:53:57 01/04/2019 08:43:55 Adult health examination 978305831 Z00.00 Body mass index 30+ - obesity 138967541 Z68.34 Adjustment disorder with anxious mood 55379000 F43.22 Screening for cardiovascular system disease 412013940 Z13.6 Venereal d isease screening 056617668 Z11.3 Screening for disorder 197009139 Z13.9 Thyroid nodule 209784643 E04.1 Acute sinusitis 71584000 J01.90 Pain in throat 652399993 R07.0 [id number] MD Jam Alvarez rn [address] [address] 3 06/25/2019 10:37:23 06/25/2019 11:21:30 Thyroid nodule 602554069 E04.1 Irregular periods 118167 07 N92.6 Venereal d isease screening 088220770 Z11.3 [id number] COURTNEY Barnhart ns [facility] [place] [address] [place] [address] 05/31/2021 08:10:20 05/31/2021 08:55:57 Gynecologic examination 04683158 Z01.419 Screening for malignant neoplasm of cervix 207566049 Z12.4 Skin tag 032234825 L91.8 Body mass index 30+ - obesity 800450637 Z68.34 [id number] [facility] [address] [place] [address] 06/04/2022 09:36:23 06/04/2022 10:06:16 Gynecologic examination 91780031 Z01.419 Irregular periods 964884 07 N92.6 Body mass index 30+ - obesity 073358228 Z68.34 [id number] Stephanie Melendez MD [facility] [address] [address] 07/17/2021 14:41:58 07/17/2021 15:39:36 Adult health examination 467551853 Z00.00 Screening for disorder 810031751 Z13.0 Endocrine/ metabolic screening 668537247 Z13.29 Screening for cardiovascular system disease 699127045 Z13.6 Hyperlipid emia screening 441784422 Z13.220 Venereal d isease screening 399174464 Z11.3 Alopecia areata 86993671 L63.8 Gastroesop hageal reflux disease 067429122 K21.9 Dermal mycosis 73540440 B35.3 [id number] Stephanie Melendez MD [facility] [address] [place] [address] 08/01/2022 08:39:41 08/01/2022 09:17:30 Adult health examination 065169871 Z00.00 Screening for disorder 565299633 Z13.0 Endocrine/ metabolic screening 743793375 Z13.29 Screening for cardiovascular system disease 361580975 Z13.6 Hyperlipid emia screening 729854038 Z13.220 Vitamin D deficiency 347 55920 E55.0 Tinea pedis 6857872 B35. 3 Body mass index 30+ - obesity 670749981 Z68.36 Scoliosis deformity of spine 484171913 M41.9 [id number] Fco Mondragon CNP [facility] [address] [address] 07/18/2023 15:00:48 07/18/2023 15:34:34 Gynecologic examination 88012946 Z01.419 Irregular periods 982644 07 N92.6 Vaginal discharge 921691 006 N89.8 [id number] Stephanie Melendez MD [facility] [address] [place] [address] 08/11/2023 08:14:59 08/11/2023 08:55:19 Adult health examination 169353725 Z00.00 Screening for disorder 898655764 Z13.0 Endocrine/ metabolic screening 641451885 Z13.29 Screening for cardiovascular system disease 415822485 Z13.6 Hyperlipid emia screening 625825037 Z13.220 Body mass index 30+ - obesity 463593995 Z68.38 Scoliosis deformity of spine 207763468 M41.85 Tendinitis of right hand 5959350365 5362315 M67.254 [id number] Fco Mondragon CNP [facility] [address] [address] 08/14/2023 07:51:42 08/14/2023 10:25:28 Polycystic ovary syndrome 338200724 E28.2 Health Concerns Section Related Observation LastModified by Organization Detai ls LastModified Time None Recorded Concern Status LastModified by Organization Details LastModified Time None Recorded Advance Directives Directive N: Payers Encounter Date Sequence Insurance Name Policy Number Policy Lewis Covered Member ID Lewis Member ID Guarantor Name 06/04/2022 1 [employer] [id number] Agnes Lee [id number] Augie Lee 08/01/2022 1 [employer] [place] [id number] Agnes Lee [id number] Augie Lee 07/18/2023 1 [employer] [place] [id number] Agnes Kaisero [id number] Augie Lee 08/11/2023 1 BLUE BENEFIT ADMINISTRATORS OF [facility] (EPO) [id number] Agnes Kaisero [id number] Augie Lee 08/14/2023 1 BLUE BENEFIT ADMINISTRATORS OF [facility] (EPO) [id number] Agnes Kaisero [id number] [id number] Augie Lee Notes Date Note Type Note Provider Name and Address Organization Details Recorded Time 06/04/2022 text/html Annual GYNReport ed bypatient.History:no gynecologic complaints; no change in interval history Menstrual cycle:Irregular cycle intervals;Unexplained vaginal bleeding Urinary symptoms:No hematuria Vulva:No genital lesion Vagina:Normal vaginal discharge Breast:No breast pain; No breast lump; No nipple discharge Current Contraception:Not sexually active Sexual complaints:Acne Psychological symptoms:No depression Here today for annual POWDER BLENDER exam.PMH: Vit D deficiency, thyroid nodules, 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 Single. Last pap ytology- negGC/CT neg Contraception: AbstinenceCycles are 5 weeks usually, past two cycle shad 2-3 week cycles with extended spotting lasting up to 10 days post menses.Derm rec her be tested for PCOS d/t new pattern to hair loss. She is on Minoxidil for alopecia but have noted new changes. Fco Mondragon, ADVERTISING SALES ASSISTANT [address] [place] [address], [address], [facility]. 06/04/2022 11:04:02 08/01/2022 text/html Pt is here for h er physical exam.PAP 05/31/[address] Wright. ROS:Seen by POWDER BLENDER for irregular tzrctsmv0s and TSH NL; other hormone tests were NLAlopecia - stable. Taking minoxidil foot rash. Not itchy. In between the toes. 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 Single. Problem list:Eczema, alopecia. Clobetasol cream improves the eczema. 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 On minoxidil. She has followed with pumping plant operator from [facility] for years, Dr. Kate Rojas. MED: topical clobetasol cream. US thyroid: several small nodules, benign, 04/2018 Vit D def. Scoliosis. Stephanie Melendez MD [address] [place], [address], [facility]. 08/01/2022 09:57:14 07/18/2023 text/html Annual GYNReport ed bypatient.History:no gynecologic complaints; no change in interval history Menstrual cycle:Irregular cycle intervals;Unexplained vaginal bleeding Urinary symptoms:No hematuria Vulva:No genital lesion Vagina:Normal vaginal discharge Breast:No breast pain; No breast lump; No nipple discharge Current Contraception:Satisfie d with current contraception; Not sexually active Sexual complaints:No sexual complaints; No pain during intercourse; Normal libido;Acne Psychological symptoms:No depression Here today for annual POWDER BLENDER exam.PMH: Vit D deficiency, thyroid nodules, alopecia. She is on Minoxidil for alopecia.No longer taking vitamin D daily. 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 Single. Last pap 2021 nl Contraception: AbstinenceCycles are 5 weeks usually, irregular with random spotting.Had labs last year to r/o PCOS or other causes of cycle irregular and all were normal.No US done. Patient agreeable to US. Fco Mondragon CNP [address] [place], [address], [facility]. 07/20/2023 13:49:57 08/11/2023 text/html Pt is here for h er physical exam.PAP 05/31/21 by Fco ROS:Seen by POWDER BLENDER - recent US showed polycystic ovaries.a1c was NL. Pt needs to upload in the system. She has to go to [place]. C/O R hand pain at palm and fingers.C/O L lumbar pain under the deformity of scoliosis. 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 Single. In a relationship. Problem list:Eczema. Clobetasol cream improves the eczema. 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 On minoxidil. She has followed with pumping plant operator from [facility] for years, Dr. Kate Rojas. MED: topical clobetasol cream.Alopecia - stable on minoxidilUS thyroid: several small nodules, benign, 04/2018. Vit D def.Scoliosis. Wore a brace when younger. Stephanie Melendez MD [address] [place], [address], [facility]. 08/11/2023 09:05:42 08/14/2023 text/html Agnes noguera s today for management of PCOSRecent lab work: 2022 nl. A1C in 07/2023 was 5.4.Ultrasound: 08/06/23- ovaries show bilateral polycystic appearance measuring volume 14 ml and 7 ml respectivelyContracept ion: AbstinenceCycles are 5 weeks usually, irregular with random spotting.Had labs last year to r/o PCOS or other causes of cycle irregular and all were normal.BMI 38.On spironolactone for alopecia Current regimen: NoneDesires : NoFor sabianist reasons, patient cannot take any control or anything that will control or manipulate ovulation. Denies abdominal pain, bloating, acne, unusual hair growth. This is a Telehealth visit, via modality {{ZOOM FaceTime Teleph one [facility].la teams#}} .Patient understands the risks, benefits and limitations of this type of visit.Patient consents for this visit.This type of visit is being utilized as it was deemed higher risk for patient to come to office given the current risk of COVID-19/coronavirus infection. During this encounter the patient is located in their home. At the time of this encounter the Physician is in {{[facility]}} located at ___[address] [place] [address] . Visit Began: {{am pm 0800am#}}Visit Ended: {{am pm 0817am#}} 50% or greater of the time was spent on counselling and coordination of care.The following people were with the patient at time of this Telehealth visit: {{Patient only* Patient and}} . Fco Mondragon CNP [address] [place], [address], [facility]. 08/14/2023 08:45:09 OBGyn Episode No OBEpisode recorded.
--- OUTSIDE RECORDS SUMMARY | 2024-03-29 11:06 | XMS_ITS | Data Portability ---
Author Organization BELIA Gamez [facility], HEALTH SERVICES Address [address] [address] Assessment Encounter Date Assessment Date Assessment LastModified by Organization Details LastModified Time 05/26/2017 05/26/2017 A: Travel to [place] - Medications and Counseling P: Vivotif 2 billion unit capsule: 1 capsule po qod x 4 doses. Take on an empty stomach 1 hour before meals with cold or lukewarm beverage. Havrix 1440 Jenni unit/ml IM syringe - schedule 2nd dose 6-12 mos after 1st. Cipro 500 mg po q 12 hrs x 3 days for traveler's diarrhea. August d/c after symptoms stop. Given Up-to-Date hand-out on travel to [place]. Counseled on food born illnesses and food and personal safety. RTC, as needed, PRN. lpeta Not available 05/26/2017 15:52:09 Plan of Treatment Reminders Order Date Submit Date Provider Last Modified By Organization Details Last Modified Time Details Appointments None recorded. Lab PPD (purified protein derivative) , skin test 2016 In-House Results, For Internal Use Only, Do Not Delete/merge, [id number] 7 10:12:57 Referral None recorded. Procedures None recorded. Surgeries None recorded. Imaging None recorded. Medication Orders Tubersol 5 tub. unit/0.1 mL intradermal injection solution 2016 Not available 7 10:04:47 Cipro 500 mg tablet 2017 018 lpeta mobile [id number], [address] [place], [place], [id number], 8 15:37:23 Patient TargetsNo targets recorded. Patient Instructions Encounter Date Encounter Id Patient Instructions Last Modified By Organization Details Last Modified Time 01/26/2018 [id number] Follow up as needed. [email or web address] Not available 01/26/2018 15:07:10 Reason for Referral None Reported. Results Created Date Observation Date Name Description Value Unit Range Abnormal Flag Note LastModifiedBy Organization Detail LastModifiedTime 03/12/2017 PPD (vicente fied prote in deriv ative ), skin test TB negati ve Not Available In-House Results For Internal Use Only, Do Not Delete/merge, [id number] 03/12/2017 16:52:56 02/19/20 17 02/19/2017 hepat itis B surfa ce Ab, quali tativ e, serum hepatitis B surface antibody ql REACTI VE non-re active abnormal Not Available [facility] [address], [place], [address], 02/19/2017 11:39:47 Result Notes None recorded. Procedures Surgical History Date Name Laterality Status Provider Name and Address Organization Details Recorded Time 8 Immunization completed Cheryl_Murphy Schedule [address] [facility], [place], [address], [facility] 01/26/2018 15:06:17 8 Immunization completed Cheryl_Murphy Schedule [address] [facility], [place], [address], [facility] 06/05/2017 18:09:29 7 PPD Read completed Cheryl_Murphy Schedule [address] [facility], [place], [address], [facility] 03/12/2017 16:49:54 7 PPD Plant completed Cheryl_Murphy Schedule [address] [facility], [place], [address], [facility] 03/10/2017 15:57:16 7 PPD Read completed Beverly Segundo [facility] 02/21/2017 15:33:32 7 PPD Plant completed Cheryl_Murphy Schedule [address] [facility], [place], [address], [facility] 02/19/2017 16:46:20 Imaging Results None recorded. Procedure Notes None recorded. Medical Equipment None Reported. Allergies No known drug allergies Medications Name Sig Start Date Stop Date Status Note LastModified by Organization Details LastModified Time Tubersol 5 tub. unit/0.1 mL intradermal injection solution Inject 0.1 mL by intradermal route. 2016 active Not Available Not Available Not Avai lable clobetasol 0.05 % topical cream APPLY TOPICALLY TO DAMP SCALP INSTRUCTED APPLY A THIN FILM active Not Available Not Available No t Available Cipro 500 mg tablet Take 1 tablet every 12 hours by oral route as directed for 3 days. 2017 active Not Available Not Available Not Avai lable Vitals None Recorded Social History None recorded. Functional Status None recorded. Mental Status None recorded. Family History Nothing Reported. Medical History No medical history recorded. Gynecological HistoryNo gynecological history recorded. Obstetrics History GPAL:G 0 P 0 0 0 0 Immunizations Vaccine Type Date Status Note Provider Nam e and Address Organization Details Recorded Time Influenza, MDCK, quadrivalent, PF 02/18/2017 completed Not Available [facility] 0 02:27:08 Hep A, adult 06/05/2017 completed Sheryl_Eitan y Schedule [address] [address], [place], [address], [facility] 06/05/2017 18:13:26 Influenza, MDCK, quadrivalent, PF 01/26/2018 completed Not Available [facility] 0 02:27:08 Past Encounters Encounter ID Performer Location Encounter Start Date Encounter Closed Date Diagnosis/Indication Diagnosis SNOMED-CT Code Diagnosis [id number] [address] [place] [address] 02/18/2017 17:49:04 03/04/2017 13:20:12 Influenza vaccine needed 6714114343 106 Z23 [id number] Che Espinosa [address] [place] [address] 02/19/2017 16:00:51 02/19/2017 17:54:44 Tuberculosis screening 697412490 Z11.1 [id number] Beverly Franchi [address] [address] 02/21/2017 15:29:43 02/21/2017 15:30:11 Tuberculosis screening 333539537 Z11.[id number] [address] 03/10/2017 15:28:34 03/10/2017 19:01:45 Tuberculosis screening 764616102 Z11.[id number] [address] 03/12/2017 16:17:42 03/12/2017 16:49:23 [place]: negative 004514649 Z11.1 [id number] Katya Bartholomew [address] [address] 05/26/2017 15:08:37 05/26/2017 16:26:31 Long-term drug therapy 021932391 Z79.899 Counseling 024641119 Z71 .9 [id number] Cheryl_Mur phy Schedule [facility] [address] [place] [address] 06/05/2017 09:29:24 06/05/2017 10:29:18 Infective hepatitis immunization 137575434 Z23 [id number] [address] 01/26/2018 12:47:50 01/26/2018 14:20:46 Influenza vaccine needed 6495436787 106 Z23 Health Concerns Section Related Observation LastModified by Organization Detai ls LastModified Time None Recorded Concern Status LastModified by Organization Details LastModified Time None Recorded Advance Directives Directive None Recorded Payers Encounter Date Sequence Insurance Name Policy Number Policy Lewis Covered Member ID Lewis Member ID Guarantor Name 03/10/2017 2 [place] Irish Lee [id number] Irish Lee 03/12/2017 2 [place] Irish Lee [id number] Irish Lee 05/26/2017 2 [place] Irish Lee [id number] Irish Lee 06/05/2017 2 [place] Irish Lee [id number] Irish Lee 01/26/2018 1 [place] [id number] [facility] [id number] [facility] 01/26/2018 2 [place] [facility] [id number] [facility] Notes Date Note Type Note Provider Name and Address Organization Details Recorded Time 05/26/2017 text/html This 22 y.o. fem perry presents for travel vaccinations as she is traveling to [place] during June. Her routine immunizations are up to date. BELIA Baig [facility] 05/26/2017 16:01:41 OBGyn Episode No OBEpisode recorded.
--- NOTE | 2024-03-29 11:18 | A.OFFVIS_ITS ---
Vital Signs 03/29/24 11:19 Height 5 ft 7 in Weight 230 lb BMI 36.0 Handedness Right Intake Visit Reasons: WC DOI 02/11/24 Rt thumb swelling/pain Intake Note: Irish is a 28 year old right hand dominant female who presents today as a new patient referred by [employer] for a work related injury of her right thumb s/p DOI: 02/11/24. Patient reports she woke up one day and when at work she noticed her right hand was hurting. 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 Her pain is localized at the base of her right thumb and radiates into the radial aspect of the right wrist. Occasionally she states the pain goes into her pain and between the 3rd, 4th and 5th metacarpals. She was advised to take Aleve for her pain but feels its been bearable without the medication. Allergies No Known Allergies Allergy (Verified 03/29/24 11:19) HPI HPI WC DOI 02/11/24 Rt thumb swelling/pain: Details: Patient is a 28-year-old female who presents for evaluation of right wrist and thumb swelling and pain, ongoing for several months but acutely worsening on 02/11/2024. 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 The patient states that she occasionally gets discomfort in the dorsal MCP joints of the 3rd 4th and 5th digits of the right hand, but this pain at the base of the thumb is primarily what bothers her. Patient denies any numbness or tingling in the right hand. No other acute complaints or concerns at this time. 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 Neuro: Normal sensation of the tips of all digits of the right hand at this time Vascular: Cap refill brisk Pain: No tenderness palpation of the right radial styloid, ulnar styloid, DRUJ, anatomical snuffbox, or elsewhere in the right hand or wrist Mildly positive Kelvin test on the right when compared to the left No pain with resisted flexion or extension of the right wrist ROM: Patient is able to make a closed fist and extend all digits of the right hand fully and without difficulty Skin: No lacerations or abrasions. General: No ecchymosis, erythema, or evidence of infection. Psych: Appears grossly normal Affect normal Attitude cooperative Office Procedures AMB Tendon Injection Tendon Injection Details: Right de Quervain injection [id number]-[id number] Tendon Sheath Injection All charges added?: Procedure code (CPT) selection complete Results Reviewed Results Reviewed: X-rays obtained in the office today and independently reviewed by me, Jarvis Hankins PA-C, demonstrate no fracture or acute bony abnormality of the right hand or wrist. Assessment & Plan Assessment & Plan (1) De Quervain's tenosynovitis, right: Code(s): M65.4 - Radial styloid tenosynovitis [de Quervain] Category: Medical Plan 1. De Quervain tenosynovitis, right Patient is educated about this condition Patient is educated about the treatment options available, and like to proceed with steroid injection Injection #1: The risks and benefits of a steroid injection including but not limited to risk of damage to blood vessels, nerves, tendons, infection, skin bleaching, failure to improve symptoms, increased pain, and possible need for further injections or other intervention were discussed with the patient and the patient wishes to proceed with the steroid injection. Once consent was obtained, I aseptically prepped the area over the 1st dorsal compartment of the right thumb. I then injected the 1st dorsal compartment with a combination of 1 mL of dexamethasone (4mg/ml), and 1% lidocaine. The patient tolerated the procedure well with no complications and good resolution of their symptoms prior to leaving clinic. If the patient continues to have pain 6-8 weeks following this injection, they may call to schedule appointment to discuss alternative treatment options Orders: Orders XR hand RT min 3V Today M79.626 - Pain in right hand Coding Level of Care Code New Pt Level 3 (96512) Diagnoses De Quervain's tenosynovitis, right M65.4 CPT Codes Tendon Injection - Tendon Injection 1: 36286-Naucpt Tendon Sheath Injection ([id number])
[2024-03-29 11:19] VITALS: BMI 36.0
== END 2024-03-29 12:06 | disposition home or self-care (01) ==
PROVIDERS: PCP Family Medicine
DX: M65.4 Radial styloid tenosynovitis [de Quervain] (principal); Z04.2 Encounter for examination and observation following work accident
CPT/HCPCS: 20550; 99203

== ENCOUNTER → 2024-04-12 08:10 | Outpatient (BNVA) | payer OTHER, SELFPAY | PROVIDERS: PCP Family Medicine; Visit Provider Internal Medicine | DX: Z13.89 Encounter for screening for other disorder (principal) | CPT/HCPCS: 99213 ==

== ENCOUNTER → 2024-04-21 11:34 | Outpatient (BNVA) | payer OTHER, SELFPAY | PROVIDERS: PCP Family Medicine; Visit Provider Internal Medicine | DX: Z13.89 Encounter for screening for other disorder (principal) | CPT/HCPCS: 99213 ==

== ENCOUNTER → 2024-05-05 09:25 | Outpatient (BNVA) | payer OTHER, SELFPAY | PROVIDERS: PCP Family Medicine; Visit Provider Internal Medicine | DX: Z13.89 Encounter for screening for other disorder (principal) | CPT/HCPCS: 99213 ==

== ENCOUNTER 2024-05-25 07:41 | Outpatient (AMB) | payer OTHER, SELFPAY ==
--- NOTE | 2024-05-25 07:53 | MHC.OFFVIS ---
Vital Signs 05/25/24 07:58 Height 5 ft Weight 228 lb 13.437 oz BMI 44.7 BP 112/78 Blood Pressure Location Rt brachial Position Sitting Pulse 78 Pulse Source Pulse Oximeter Pulse Oximetry (%) 98 Oxygen Delivery Method Room Air Intake Visit Reasons: RT thumb tendonitis Intake Note: Patient presents for RT thumb tendonitis. Allergies No Known Allergies Allergy (Verified 05/25/24 07:58) Medication List - Last Reconciled 05/25/24 by Marybel Howard MD minoxidil 2.5 mg PO DAILY spironolactone 50 mg PO BID HPI Comments Details: Patient is a 29-year-old female with alopecia on minoxidil and spironolactone here today for evaluation of right flexor tenosynovitis. 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 There was no associated swelling. There would sometimes be an electric sensation noted to the lateral 2 fingers as well. Therapeutics tried - naproxen bid, did not help much - OT. helped but the results not sustained - splinting. did not feel that helped No other joint involved PFSH Medical History Scoliosis Alopecia Family History Mother Varicose veins of bilateral lower extremities with other complications Social History Alcohol intake: current Alcohol intake frequency: holidays/special occasions only Patient Tobacco Use Status: Never used Tobacco Current occupational status: employed Current occupation: [employer] @ [employer] [place] Review of Systems Const Details: Review of Systems Constitutional: Denies fever, chills, weight loss ENT: Denies vision changes, eye pain or eye redness, dental caries, dry mouth GI: Denies nausea, vomiting, diarrhea, abdominal pain, change in BM Pulm: Denies SOB, CARTER, hemoptysis, wheezing Cards: Denies chest pain, palpitations Skin: Denies Raynaud's, rash, nail changes, photosensitivity, 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 Well appearing and in no apparent painful distress HEENT Conjunctiva and sclera clear. ?Pupils equal round and reactive to light. ?No lymphadenopathy. ? CHEST/RESPIRATORY SYSTEM Normal respiratory effort and able to speak in complete sentences. ?Clear to auscultation bilaterally. ?No crackles, rales, rhonchi, wheezes heard. CARDIAC SYSTEM Regular rate and rhythm. ?S1 and S2 heard no murmurs. 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 No deformities noted. ?No synovitis noted to the MCPs, PIPs or DIPs. ?No tenderness to palpation of these joints. Wrists: ?Full range of motion at the wrists without pain. ?No tenderness to palpation or synovitis noted to the wrists. Negative Kelvin's test. No tenderness to palpation of the 1st compartment tendons. A positive carpal tunnel compression test and negative Phalen's test Elbows: Full range of motion without pain. No tenderness, weakness, swelling, increased warmth or erythema. Shoulders: Full range of motion without pain. No tenderness, weakness, swelling, increased warmth or erythema. Hips: Full range of motion without pain. Hip bursa: No tenderness to palpation Knees: ?Full range of motion. ?No tenderness, swelling, increased warmth or erythema.?No effusion or crepitations Ankles: Full range of motion. ?No tenderness, swelling, increased warmth or erythema.? Feet: ?Negative squeeze test. ?No tenderness to palpation or swelling of the MTPs. Tender points:?No tenderness to palpation of the bilateral trapezius, supraspinatus, greater trochanters, anterior costochondral junctions, bilateral gluteal areas, bilateral suboccipital muscle insertions SKIN Skin intact without rashes. Results Reviewed Results Reviewed: XR Right Hand 03/2024 FINDINGS: No fracture or dislocation. Normal carpal alignment. No significant joint space narrowing or marginal osteophytes. No osseous erosion. No periarticular osteopenia. No abnormal soft tissue calcification. Assessment & Plan Assessment & Plan (1) De Quervain's tenosynovitis, right: Code(s): M65.4 - Radial styloid tenosynovitis [de Quervain] Category: Medical Plan: #Flexor Tenosynovitis Patient with history suggestive of flexor tenosynovitis however on examination there was no obvious inflammation noted on the provocative Kelvin's maneuvers. I think she has a combination of carpal tunnel and potentially flexor tenosynovitis involving the 1st compartment tendons. I recommended topical diclofenac 4 times a day and splinting of the wrist with thumb spica overnight. We will re-evaluate in 6 weeks Plan - Topical diclofenac 1% qid - Splinting - RTC 6 weeks for re evaluation Plan I spent 30 minutes reviewing the record and labs, taking a history, examining the patient, discussing the treatment plan and documenting in the medical record Medications: New diclofenac sodium 1% (Arthritis Pain (diclofenac)) apply to right hand 4 times a day 4 grams topical QID 100 grams 2RF M65.4 - Radial styloid tenosynovitis [de Quervain] Coding Level of Care Code New Pt Level 3 (38441) Diagnoses De Quervain's tenosynovitis, right M65.4
[2024-05-25 07:58] VITALS: BP 112/78; PULSE 78; O2SAT 98; BMI 44.7
== END 2024-05-25 08:32 | disposition home or self-care (01) ==
PROVIDERS: PCP Family Medicine; Visit Provider Student in an Organized Health Care Education/Training Program
DX: M65.4 Radial styloid tenosynovitis [de Quervain] (principal)
CPT/HCPCS: 99203

== ENCOUNTER → 2024-05-25 07:41 | Outpatient (BNVA) | payer OTHER, SELFPAY | PROVIDERS: PCP Family Medicine; Visit Provider Student in an Organized Health Care Education/Training Program ==

== ENCOUNTER → 2024-05-26 07:56 | Outpatient (BNVA) | payer OTHER, SELFPAY | PROVIDERS: PCP Family Medicine; Visit Provider Internal Medicine | DX: Z13.89 Encounter for screening for other disorder (principal) | CPT/HCPCS: 99213 ==

== ENCOUNTER 2024-07-06 07:34 | Outpatient (AMB) | payer OTHER, SELFPAY ==
[2024-07-06 07:36] VITALS: BP 120/68; PULSE 64; O2SAT 98; BMI 33.7
--- NOTE | 2024-07-06 07:36 | A.OFFVIS_ITS ---
Vital Signs 07/06/24 07:36 Height 5 ft 7 in Weight 215 lb 2.738 oz BMI 33.7 BP 120/68 Blood Pressure Location Lt brachial Position Sitting Pulse 64 Pulse Source Pulse Oximeter Pulse Oximetry (%) 98 Oxygen Delivery Method Room Air Intake Visit Reasons: RT thumb tendonitis Intake Note: Patient last seen by Doctor Marybel Howard on 05/25/24. Presents today for RT thumb tendonitis follow up. Allergies No Known Allergies Allergy (Verified 07/06/24 07:38) Medication List - Last Reconciled 07/06/24 by Marybel Howard MD diclofenac sodium 1% (Arthritis Pain (diclofenac)) 4 grams topical QID minoxidil 2.5 mg PO DAILY spironolactone 50 mg PO BID HPI Comments Details: Patient is a 29-year-old female with alopecia on minoxidil and spironolactone here today for follow up of right flexor tenosynovitis. Interval History: Patient last seen 05/25/2024 with me. At that time she was being evaluated for right hand pain was consistent with flexor tenosynovitis and possible carpal tunnel. She was recommended splinting and topical diclofenac and today she is here for review Has been doing the splinting and topical diclofenac and has noticed some relief but still having difficulty with wrist movements. 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 There was no associated swelling. There would sometimes be an electric sensation noted to the lateral 2 fingers as well. Therapeutics tried - naproxen bid, did not help much - OT. helped but the results not sustained - splinting. did not feel that helped No other joint involved Current Rheumatology Medication(s): Topical diclofenac [facility] Medical History Scoliosis Alopecia Family History Mother Varicose veins of bilateral lower extremities with other complications Social History Alcohol intake: current Alcohol intake frequency: holidays/special occasions only Patient Tobacco Use Status: Never used Tobacco Current occupational status: employed Current occupation: [employer] @ [employer] [place] Review of Systems Const Details: Review of Systems Constitutional: Denies fever, chills, weight loss ENT: Denies vision changes, eye pain or eye redness, dental caries, dry mouth GI: Denies nausea, vomiting, diarrhea, abdominal pain, change in BM Pulm: Denies SOB, CARTER, hemoptysis, wheezing Cards: Denies chest pain, palpitations Skin: Denies Raynaud's, rash, nail changes, photosensitivity, 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 Well appearing and in no apparent painful distress HEENT Conjunctiva and sclera clear. ?Pupils equal round and reactive to light. ?No lymphadenopathy. ? CHEST/RESPIRATORY SYSTEM Normal respiratory effort and able to speak in complete sentences. ?Clear to auscultation bilaterally. ?No crackles, rales, rhonchi, wheezes heard. CARDIAC SYSTEM Regular rate and rhythm. ?S1 and S2 heard no murmurs. ?Radial pulses intact bilaterally MSK Hands: ?Good education department chair strength bilaterally. No deformities noted. ?No synovitis noted to the MCPs, PIPs or DIPs. ?No tenderness to palpation of these joints. Wrists: ?Full range of motion at the wrists without pain. ?No tenderness to palpation or synovitis noted to the wrists. tenderness to palpation of the 1st compartment tendons of the right wrist Elbows: Full range of motion without pain. No tenderness, weakness, swelling, increased warmth or erythema. Shoulders: Full range of motion without pain. No tenderness, weakness, swelling, increased warmth or erythema. Hips: Full range of motion without pain. Hip bursa: No tenderness to palpation Knees: ?Full range of motion. ?No tenderness, swelling, increased warmth or erythema.?No effusion or crepitations Ankles: Full range of motion. ?No tenderness, swelling, increased warmth or erythema.? Feet: ?Negative squeeze test. ?No tenderness to palpation or swelling of the MTPs. Tender points:?No tenderness to palpation of the bilateral trapezius, supraspinatus, greater trochanters, anterior costochondral junctions, bilateral gluteal areas, bilateral suboccipital muscle insertions SKIN Skin intact without rashes. Office Procedures AMB Joint Injection/Aspiration Joint Injection/Aspiration Details: Procedure was explained to the patient and consent was obtained. ? The area of interest was identified and confirmed with patient. ?This was subsequently cleaned with chlorhexidine x3. ? The area was then anesthetized using ethyl chloride spray. 20 mg Kenalog with 0.5 cc 1% lidocaine was injected without issue. ?Minimal to no bleeding. ?Patient tolerated procedure. Primary Site: other (Right flexor tenosynovitis) Prep: site was prepped using aseptic technique, ethochloride spray was applied and injection warnings given Injected: 20 mg of, Kenalog, with 0.5 mL of and 1% plain lidocaine Approach Used: other Procedure: The patient tolerated the procedure well Coding 14015 - Bicipital Groove Injection Procedure code (CPT) selection complete Office Meds lidocaine (PF) 10 mg/mL (1 %) injection solution Performing Provider: Marybel Howard MD Performing Location: [facility] [place] [facility] Administered by: Marybel Howard MD on 07/06/24 08:05 Dose Route Admin Location Dispensed Lot Number Expiration Date [facility] Medical Education Coordinator 0.5 mL Infiltration right flexor tendons 2 mL [id number] 07/13/26 93698-092-14 [facility] Kenalog 40 mg/mL suspension for injection Performing Provider: Marybel Howard MD Performing Location: [facility] Administered by: Marybel Howard MD on 07/06/24 08:05 Dose Route Admin Location Dispensed Lot Number Expiration Date [facility] Medical Education Coordinator 20 mg Tendon Sheath Inj. right flexor tendons 1 mL [id number] 10/12/25 65656-[address]4- 1 [employer] Results Reviewed Results Reviewed: XR Right Hand 03/2024 FINDINGS: No fracture or dislocation. Normal carpal alignment. No significant joint space narrowing or marginal osteophytes. No osseous erosion. No periarticular osteopenia. No abnormal soft tissue calcification. Assessment & Plan Assessment & Plan (1) De Quervain's tenosynovitis, right: Code(s): M65.4 - Radial styloid tenosynovitis [de Quervain] Category: Medical Plan: #Flexor Tenosynovitis Patient with history suggestive of flexor tenosynovitis and today with some tenderness to palpation on the provocative Kelvin's maneuver. Had 6 weeks of conservative therapy with persistent pain. Status post steroid injection today. Plan - s/p steroid injection to right flexor tendons of the 1st compartmetn - continue splinting - RTC prn Plan I spent 20 minutes reviewing the record and labs, taking a history, examining the patient, discussing the treatment plan and documenting in the medical record Orders: Orders AMB Joint Injection/Aspiration Today M65.4 - Radial styloid tenosynovitis [de Quervain] Medications: New lidocaine (PF) 0.5 mL Infiltration ONCE 2 mL 0RF M65.4 - Radial styloid tenosynovitis [de Quervain] Kenalog (triamcinolone acetonide) 20 mg (0.5 mL) Tendon Sheath Inj. ONCE 0.5 mL 0RF NS M65.4 - Radial styloid tenosynovitis [de Quervain] Coding Level of Care Code Est Pt Level 3 (77839) Diagnoses De Quervain's tenosynovitis, right M65.4 CPT Codes Coding - Joint 1: 35783 - Bicipital Groove Injection ([id number])
== END 2024-07-06 08:02 | disposition home or self-care (01) ==
LOC: HO.RHE 07:34
PROVIDERS: PCP Family Medicine; Visit Provider Student in an Organized Health Care Education/Training Program
DX: M65.4 Radial styloid tenosynovitis [de Quervain] (principal)
CPT/HCPCS: 20550; 99213

== ENCOUNTER → 2024-07-06 07:34 | Outpatient (BNVA) | payer OTHER, SELFPAY | PROVIDERS: PCP Family Medicine; Visit Provider Student in an Organized Health Care Education/Training Program | DX: M65.4 Radial styloid tenosynovitis [de Quervain] (principal) | CPT/HCPCS: 20550; J3300 ==

== ENCOUNTER → 2024-07-21 08:05 | Outpatient (BNVA) | payer OTHER, SELFPAY | PROVIDERS: PCP Family Medicine; Visit Provider Internal Medicine | DX: Z13.89 Encounter for screening for other disorder (principal) | CPT/HCPCS: 99213 ==

== ENCOUNTER 2024-08-11 07:40 | Outpatient (REF) | payer OTHER, SELFPAY ==
--- NOTE | ~2024-08-11 | XR_ITS ---
EXAMINATION: XR LUMBOSACRAL SPINE CLINICAL INFORMATION: SPASM OF BACK MUSCLE COMPARISON: None available. TECHNIQUE: Three views of the lumbosacral spine. FINDINGS: There is a mild to moderate right convex scoliosis, apex at L3, with maximal Grace angle measuring approximately 15 degrees. There is mild rotatory component. There is mild straightening of the normal lordosis. There is no subluxation. There is no fracture, compression deformity, vertebral body anomaly, or suspicious bone lesion. There is normal facet alignment without significant facet arthrosis. Disc spaces are preserved throughout. The sacrum is intact. There is a suggestion of mild right greater than left SI joint arthropathy, possibly artifactual. There is no soft tissue abnormality. XR/XR lumbar spine 2-3V IMPRESSION: 1. No acute bony abnormalities. 2. There is a mild to moderate right convex scoliosis, apex at L3, Grace angle measuring approximately 15 degrees. There is a mild rotatory component. 3. Normal facet alignment and preserved disc spaces. No subluxations. 4. Suggestion of right greater than left SI joint arthropathy, possibly artifactual. Dedicated SI joint views may be of benefit. Electronically signed by: Mikal Perales MD 08/13/2024 09:27 AM EDT
--- NOTE | ~2024-08-11 | XR_ITS ---
EXAMINATION: XR THORACIC SPINE CLINICAL INFORMATION: SPASM OF BACK MUSCLE COMPARISON: Scoliosis radiographs 08/12/2023 TECHNIQUE: 3 views of the thoracic spine were obtained. FINDINGS: There is an S-shaped thoracolumbar scoliosis, most predominant aspect is lower, convex to the left, apex at T12, with a normal rotatory component. Maximal Grace angle measures 31 degrees. Upper component is minimally convex to the right, apex at T6. Maximum Grace angle measures 21 degrees. There are no fractures, compression deformities, or suspicious bone lesions. There is normal kyphosis. There is no subluxation. There are no vertebral body anomalies. Disc spaces appear preserved throughout. Normal facet alignment. The imaged lungs, mediastinal contents, and soft tissues appear normal. XR/XR thoracic spine 2V IMPRESSION: 1. No acute findings of the thoracic spine. 2. S-shaped thoracolumbar scoliosis as described. This appears stable from 08/12/2023. Electronically signed by: Mikal Perales MD 08/13/2024 08:30 AM EDT
--- OUTSIDE RECORDS SUMMARY | 2024-08-11 07:47 | XMS_ITS | Data Portability ---
Author Organization BELIA [facility], HEALTH SERVICES Address [address] [address] Assessment Encounter Date Assessment Date Assessment LastModified by Organization Details LastModified Time 05/26/2017 05/26/2017 A: Travel to [place] - Medications and Counseling P: Vivotif 2 [...] stop. Given Up-to-Date hand-out on travel to [place]. Counseled on food born illnesses and food and personal safety. RTC, as needed, PRN. [email or web address] Not available 05/26/2017 15:52:09 Plan of Treatment Reminders Order Date Submit Date Provider Last Modified By Organization Details Last Modified Time Details Appointments None recorded. Lab PPD (purified protein derivative) , skin test 2016 017 [email or web address] In-House Results, For Internal Use Only, Do Not Delete/merge, [id number] 7 10:12:57 Referral None recorded. Procedures None recorded. Surgeries None recorded. Imaging None recorded. Medication Orders Cipro 500 mg tablet 2017 018 lpeta [id number], [address], [place], [id number], 8 15:37:23 Tubersol 5 tub. unit/0.1 mL intradermal injection solution 2016 017 Not available 7 10:04:47 Patient TargetsNo targets recorded. Patient Instructions Encounter Date Encounter Id Patient Instructions Last Modified By Organization Details Last Modified Time 01/26/2018 [id number] Follow up as needed. [email or web address] Not available 01/26/2018 15:07:10 Reason for Referral None Reported. Results Created Date Observation Date Name Description Value Unit Range Abnormal Flag Note LastModifiedBy Organization Detail LastModifiedTime 03/12/20 17 03/12/2017 PPD (vicente fied prote in deriv ative ), skin test TB negati ve Not Available In-House Results For Internal Use Only, Do Not Delete/merge, [id number] 03/12/2017 16:52:56 02/19/20 17 02/19/2017 hepat itis B surfa ce Ab, quali tativ e, serum hepatitis B surface antibody ql REACTI VE non-re active abnormal Not Available [facility] [address], [place], [address], 02/19/2017 11:39:47 Result Notes None recorded. Procedures Surgical History Date Name Laterality Status Provider Name and Address Organization Details Recorded Time 8 Immunization completed Cheryl_Murphy Schedule [address] [address], [place], [address], [facility] 01/26/2018 15:06:17 8 Immunization completed Cheryl_Murphy Schedule [address] [facility], [place], [address], [facility] 06/05/2017 18:09:29 7 PPD Read completed Cheryl_Murphy Schedule [address] [facility] [place], [address], [facility] 03/12/2017 16:49:54 7 PPD Plant completed Cheryl_Murphy Schedule [address] [facility] [address], [place], [address], [facility] 03/10/2017 15:57:16 7 PPD Read completed Beverly Segundo [facility] 02/21/2017 15:33:32 7 PPD Plant completed Cheryl_Murphy Schedule [address] [facility], [place], [address], [facility] 02/19/2017 16:46:20 Imaging Results None [...] MDCK, quadrivalent, PF 02/18/2017 completed Not Available [facility] 0 02:27:08 Hep A, adult 06/05/2017 completed Gustavo salvador Schedule [address] [place] [address], [place], [address], [facility] 06/05/2017 18:13:26 Influenza, MDCK, quadrivalent, PF 01/26/2018 completed Not Available [facility] 0 02:27:08 Past Encounters Encounter ID Performer Location Encounter Start Date Encounter Closed Date Diagnosis/Indication Diagnosis SNOMED-CT Code Diagnosis ICD10 Code Diagnosis Note [id number] [facility] [address] [facility] [place] [address] 02/18/2017 17:49:04 03/04/2017 13:20:12 Influenza vaccine needed [id number] 106 Z23 [id number] [facility] [address] [facility] [place] [address] 02/19/2017 16:00:51 02/19/2017 17:54:44 Tuberculosis screening 591006571 Z11.1 21 yo pt presents for PPD plant. Pt completed TB Risk Questionna master and denied S & S of active TB. Pt aware to return in 48 to 72 hours for read. [id number] [address] 02/21/2017 15:29:43 02/21/2017 15:30:11 Tuberculosis screening 966912472 Z11.1 Negative Tuberculos is PPD [place] [id number] [address] 03/10/2017 15:28:34 03/10/2017 19:01:45 Tuberculosis screening 310420909 Z11.1 21 yo pt presents for PPD plant. Pt completed TB Risk Questionna master and denied S & S of active TB. Pt aware to return in 48 to 72 hours for read. 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 Results negative with 0 induration , and were discussed with patient. [id number] [address] 05/26/2017 15:08:37 05/26/2017 16:26:31 Long-term drug therapy 302029115 Z79.899 Counseling 343589867 Z71 .9 [id number] Cheryl_Mur phy Schedule [facility] [address] [place] [address] 06/05/2017 09:29:24 06/05/2017 10:29:18 Infective hepatitis immunization 838403146 Z23 22 yo pt presents for Hepatitis A vaccine. Vaccine was delivered by [facility]. Pt reviewed VIS and denied contraindi cations. Vaccine administer ed without incident. Pt aware to return in 6 months for 2nd dose of series. [id number] [address] 01/26/2018 12:47:50 01/26/2018 14:20:46 Influenza vaccine needed 4601508882 106 Z23 22 yo pt presents for influenza vaccine. RN reviewed VIS with pt, and pt denied contraindi cations. Consent signed and vaccine administer ed without incident. RN advised pt to contact [facility] with any questions or concerns. Pt verbalized understand ing and agreed to plan. Patient given copy of consent form for personal records. Health Concerns Section Related Observation LastModified by Organization Detai ls LastModified Time None Recorded Concern Status LastModified by Organization Details LastModified Time None Recorded Advance Directives Directive None Recorded Payers Encounter Date Sequence Insurance Name Policy Number Policy Lewis Covered Member ID Lewis Member ID Guarantor Name 03/10/2017 2 [place] Irish Lee [id number] Irish Lee 03/12/2017 2 [place] Irish Lee [id number] Irish Lee 05/26/2017 2 [place] Irish Lee [id number] Irish Lee 06/05/2017 2 [place] Irish Lee [id number] Irish Lee 01/26/2018 1 [place] [id number] Irish Lee [id number] Irish Lee 01/26/2018 2 [place] Irish Lee [id number] Irish Lee Notes Date Note Type Note Provider Name and Address Organization Details Recorded Time 05/26/2017 text/html This 22 y.o. fem perry presents for travel vaccinations as she is traveling to [place] during June. Her routine immunizations are up to date. BELIA [facility] 05/26/2017 16:01:41 OBGyn Episode No OBEpisode recorded.
--- OUTSIDE RECORDS SUMMARY | 2024-08-11 07:47 | XMS_ITS | Clinical Summary ---
Author Organization [facility] Address [address] [place] [address] Care Team Providers Care Dirt Supervisor Name Role Phone Stephanie Calderón MD Primary Care Provider [phone] Allergies No known active allergies Medications cholecalciferol (VITAMIN D3) 2,000 unit capsule 2 Active ketoconazole-hy drocortisone 2-2.5 % cream 2 Active qo-dl-qzbk-FA-C a carb-vit K (Women's Multivitamin) 18 mg-400 mcg- 500 mg-50 mcg tablet Women's Multivitamin Active clotrimazole (LOTRIMIN) 1% cream clotrimazole 1 % topical cream Active spironolactone (ALDACTONE) 50 mg tabletIndicatio ns:Hair loss Take 2 tablets (total 100 mg) by mouth at night 180 tablet 3 4 Active minoxidiL (LONITEN) 2.5 mg tabletIndicatio ns:Hair loss 1/2 tablet by mouth once a day 45 tablet 3 4 Active ketoconazole (NIZORAL) 2% cream Apply bid to feet until improved 180 g 1 4 Active Hospital, Clinic, or Other Facility Administered Medication Ordered Dose Route Frequency Start Date End Date Status triamcinolone acetonide (KENALOG-10) injection 2.5 mgIndications:Alopecia 2.5 mg intralesio Once 02/06/2022 Ac tive Active Problems Problem Noted Date Diagnosed Date Abnormal thyroid stimulating hormone (TSH) level 03/12/2023 Abnormal serum thyroid stimulating hormone (TSH) level 03/12/2023 Contusion of right thumb without damage to nail 03/12/2023 Epigastric pain 03/12/2023 Joint disorder of knee 03/12/2023 Neck muscle spasm 03/12/2023 Obesity (BMI 30.0-34.9) 03/12/2023 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 Gastroesophageal reflux disease 07/17/2021 Acute sinusitis 01/04/2019 Adjustment disorder with anxious mood 01/04/2019 Irregular periods 11/20/2017 Neck pain 11/20/2017 Obesity with body mass index 30 or greater 11/20 Scoliosis of lumbar spine 12/08/2007 Alopecia areata 05/09/2000 Immunizations Immunization Administration Dates Next Due Covid-19, Pfizer, mRNA, [place] valent, PF 30 mcg/0.3 mL dose (for ages 12 and older) 04/20/2020 DTaP-Haemophilus Influenzae Type B Conjugate Vaccine 1996,1996 Diphtheria, Tetanus Toxoids and Acellular Pertussis Vaccine 08/20/2001,11/01/1997,1996 Diphtheria, Tetanus Toxoids and Acellular Pertussis Vaccine, 5 Pertussis Antigens 08/20/2001,11/01/1997,1996,1996,1996 Diphtheria, Tetanus Toxoids and Acellular Pertussis Vaccine, Unspecified Formulation 08/20/2001,11/01/1997,1996,1996,1996 Haemophilus Influenzae Type B Vaccine, PRP-OMP Conjugate 07/29/1997,1996 Haemophilus Influenzae Type B Vaccine, PRP-T Conjugate 07/29/1997,1996,1996,1996 Hep B, Unspecified 02/07/2017, 7,10/02/2016,1996,1996,1996 Hepatitis A Vaccine, Adult Dosage 06/05/2017 Hepatitis B Vaccine, Pediatr ic or Pediatric/Adolescent Dosage 01/17/1997,1996,1996 Hepatitis B adult (ENGERIX-B ADULT) vaccine 1 mL IM 02/07/2017,11/06/2016,10/02/2016,1996,1996,1996 Influenza, Injectable, Madin Sabina Canine Kidney, Preservative Free, Quadrivalent 01/26/2018,02/18/2017 Influenza, Injectable, Quadr ivalent, Contains Preservative 02/12/2021 Influenza, Injectable, Quadr ivalent, Preservative Free 01/16/2023,01/24/2022,01/16/2021,2019,02/02/2019,03/30/2015 Social History Tobacco Use Types Packs/Day Years Used Date Smoking Tobacco: Never Smokeless Tobacco: Never Alcohol Use Standard Drinks/Week Comments Not Currently 0 (1 standard drink = 0.6 oz pur e alcohol) Comments Unknown Sex and Gender Information Value Date Recorded Sex Assigned at Female 08/07/2021 6:51 PM EDT Legal Sex Female 11:53 AM EDT Gender Identity Female 08/07/2021 6:51 PM EDT Sexual Orientation Straight 08/07/2021 6: 51 PM EDT Last Filed Vital Signs Vital Sign Reading Time Taken Comments Blood Pressure 107/72 03/24/2024 8:53 AM EST Pulse 70 03/24/2024 8:53 AM EST Temperature - - Respiratory Rate - - Oxygen Saturation - - Inhaled Oxygen Concentration - - Weight 106.9 kg (235 lb 10.8 oz) 05/31/2022 9:02 AM EST Height 170.7 cm (5' 7.2 ) 05/31/2022 9:02 AM EST Body Mass Index 36.69 05/31/2022 9:02 AM EST Plan of Treatment Upcoming Encounters Date Type Department Care Team (Late st Contact Info) Description 01/04/2025 8:45 AM EDT Office Visit [facility] 4th Floor [address] [place] [phone] Salesperson Sheet Music: Ashley Vargas MD [address] [place] [phone] 03/29/2025 9:45 AM EST Office Visit [facility] 4th Floor [address] [place] [phone] Salesperson Sheet Music: Ashley Vargas MD [address] [place] [address] Health Maintenance Due Date Last Done Comments HIV Screening 1996 Hepatitis C Screening 1996 Pap Smear 1996 Basic Metabolic Panel 06/05/2021 06/05/2020 Alcohol/Substance Use Screening 04/14/2024 Depression Screening and Follow-Up 04/14/2024 Social Drivers of Health Annual Screening 04/14/2024 DTaP,Tdap,and Td Vaccines (8 - Td or Tdap) 11/21/2027 11/20/2017, 09/18/2007, 08/20/2001, Additional history exists RSV Vaccine (60+ years old and patients) (1 - 1-dose 75+ series) 2071 Varicella Vaccines Completed 11/02/2010, 06/23/2001 Hepatitis B Vaccines Completed 02/07/2017, 02/07/2017, 11/06/2016, Additional history exists COVID-19 Vaccine Completed 02/04/2024, , 01/10/2021, Additional history exists Influenza Vaccine Completed 02/04/2024, , 01/24/2022, Additional history exists Pneumococcal Vaccine: Pediatric (0-5 Years) and At-Risk Patients (6-50 Years) Aged Out No longer eligible based on patient's age to complete this topic Procedures * Due to [place] NewACT law, this organization might not be sharing negative HIV tests. Procedure Name Priority Date/Time Associated Diagnosis Comments COMPREHENSIVE METABOLIC PANEL Routine 06/05/2020 1:16 PM EST from Last 3 Months or Most Recently Relevant to Health Maintenance Results * Due to [place] NewACT law, this organization might not be sharing negative HIV tests. * (ABNORMAL) Comprehensive Metabolic Panel (06/05/2020 1:16 PM EST) NA 142 136 - 145 mMOL/L [facility] K 4.1 3.5 - 5.1 mMOL/L [facility] Cl 106 98.0 - 109.0 mMOL/L [facility] CO2 23 23 - 32 mMOL/L [facility] Anion Gap 17 11 - 21 mMOL/L [facility] BUN 10 6 - 20 mg/dL [facility] Creatinine 0.67 0.50 - 1.12 mg/dL [facility] GFR Non > 90 60- eGFR [facility] Comment:GFR >89mL/min/1.73m^ 2, NORMAL KIDNEY FUNCTION (STAGE G1) GFR > 90 60- eGFR [facility] Comment:GFR >89mL/min/1.73m^ 2, NORMAL KIDNEY FUNCTION (STAGE G1) Glucose 94 60 - 99 mg/dL [facility] Calcium 9.7 8.4 - 10.4 mg/dL [facility] Bilirubin, Total 0.40 0.2 - 1.2 mg/dL [facility] AST 22 10 - 33 U/L [facility] ALT 34(H) 13 - 33 U/L [facility] Total Protein 6.8 6.6 - 8.7 g/dL [facility] Albumin 4.7 3.5 - 5.0 gm/dL [facility] Globulin, Total 2.1 1.3 - 3.5 gm/dL [facility] A/G Ratio 2.2 1.5 - 3.0 . [facility] Alkaline Phosphatase 86 40.0 - 129.0 U/L [facility] 06/05/2020 1:16 PM EST Dee [facility] BLOOD ORDERABLES Final Resu lt [facility] from Last 3 Months or Most Recently Relevant to Health Maintenance Insurance [employer] Care Teams Dirt Supervisor Relationship Specialty Start Date End Date Stephanie Calderón MD PCP - General Family Medicine 07/23/21
--- OUTSIDE RECORDS SUMMARY | 2024-08-11 07:47 | XMS_ITS | Encounter Summary ---
Author Organization [facility] Address [address] [place] [address] Care Team Providers Care Management Lead Name Role Phone Stephanie Calderón MD Primary Care Provider [phone] Reason for Visit * Reason Onset Date Comments CS - Apppointment 03/19/2022 Encounter Details Date Type Department Care Team (Late st Contact Info) Description 03/19/2022 Telephone [facility] Central Scheduling Department [address] [place] [address] Telephone Intake, Staff CS - Apppointment Social History Tobacco Use Types Packs/Day Years [...] Orientation Straight 08/07/2021 6: 51 PM EDT documented as of this encounter Miscellaneous Notes * Telephone Encounter - Praveena Vuong - 03/19/2022 10:40 AM EST Patient had to cancel 03/[address] Smith. Provider wanted to see patient within 2-3 months, next available is August. Please reach out to PT for scheduling. documented in this encounter Plan of Treatment Upcoming Encounters Date Type Department Care Team (Late st Contact Info) Description 01/04/2025 8:45 AM EDT Office Visit [facility] 4th Floor [address] [place] [address] Foil Wrapper: Ashley Vargas MD [address] [place] [phone] 03/29/2025 9:45 AM EST Office Visit [facility] [address] [phone] Foil Wrapper: Ashley Vargas MD [address] [place] [phone] documented as of this encounter Visit Diagnoses Not on filedocumented in this encounter Care Teams Management Lead Relationship Specialty Start Date End Date Stephanie Calderón MD PCP - General Family Medicine 07/23/21 documented as of this encounter
--- OUTSIDE RECORDS SUMMARY | 2024-08-11 07:47 | XMS_ITS | Data Portability ---
Author Organization [facility] [employer], svmg_admin Address [address] [place] [phone] Care Team Providers Care Hand Stripper Name Role Phone STEPHANIE MELENDEZ Primary Care Provider [phone] PAMELLA PETERSEN Vascular Surgeon DAVINA SMITH Cell Stripper Final Assessment Encounter Date Assessment Date Assessment LastModified by Organization Details LastModified Time 08/11/2023 08/11/2023 consider metformin, wegovy consider hand surgeon referral consider ORTHO and PT referral for scoliosis Not available 08/11/2023 09:05:22 Plan of Treatment Reminders Order Date Submit Date Provider Last Modified By Organization Details Last Modified Time Details Appointments Physic al 30 2024 02:30P M Stephanie Melendez MD Not available Not available Not available Physic al 30 2024 03:30P M Fco Mondragon CNP Not available Not available Not available Lab CBC w/ auto diff 2023 024 HERMITAGE [facility], [address] [place] [address], [id number], 08/14/2023 11:27:20 lipid panel, serum 2023 024 ALLY [facility], [address] [place] [address], [address], 08/14/2023 11:27:20 vitami n D, 25-hyd garfield, total, serum 2023 024 HERMITAGE [facility], [address] [place] [address], [address], 08/14/2023 11:27:20 TSH, ultra- sensit joe, serum 2023 024 stephanie [facility], [address] [place] [address], [address], 09/09/2023 15:47:29 CMP, serum or plasma 2023 024 [facility], [address] [place] [address], [address], 08/14/2023 11:27:20 vagina l pathog ens panel, VIKTORIA+pr obe, vagina l fluid 2023 024 [facility], [address] [place] [address], [address], 07/21/2023 20:06:45 HbA1c (hemog lobin A1c), blood 2023 024 [facility], [address] [place] [address], [address], 08/12/2023 08:53:46 CBC w/ auto diff 2022 023 [facility], [address] [place] [address], [address], 08/05/2022 11:20:02 lipid panel, serum 2022 023 [facility], [address] [place] [address], [address], 08/05/2022 11:20:02 vitami n D, 25-hyd garfield, total, serum 2022 023 [facility], [address] [place] [address], [address], 08/05/2022 11:20:02 CMP, serum or plasma 2022 023 [facility], [address] [place] [address], [address], 08/05/2022 11:20:01 Referral occupa tional therap ist referr al 2023 024 [facility] [address] [place], [address], 05/23/2024 10:25:53 Procedures None record ed. Surgeries None record ed. Imaging XR, lumbar spine 2024 025 [facility] (Imaging), [address] [place], [address], 08/06/2024 16:21:49 XR, thorac ic spine, 2 view 2024 025 [facility] (Imaging), [address] [place], [address], 08/06/2024 16:21:49 XR, spine, scolio sis series - please measur e if possib le [address] [facility] (Imaging), [address] [place], [address], 08/13/2023 06:41:35 US, pelvis - comple te pelvic US [email or web address] [place] [address] (Imaging), [address] [place], [address], 08/26/2023 08:31:40 Medication Orders cyclob enzapr ine 5 mg tablet 2024 025 [email or web address] [id number], [address] [place], [address], 08/06/2024 16:52:47 naprox en 500 mg tablet 2024 025 [email or web address] [id number], [address] [place], [address], 08/06/2024 16:52:47 clotri mazole 1 % topica l cream 2022 023 [id number], [address] [facility], [place], [address], 08/01/2022 09:53:43 Patient TargetsNo targets recorded. Patient Instructions Encounter Date Encounter Id Patient Instructions Last Modified By Organization Details Last Modified Time 08/01/2022 [id number] athlete's foot: care instructions Not available 08/01/2022 [...] Low - 0 score Not Available [facility] ([facility]) [address] [place], [address], 07/21/2023 20:06:45 07/18/19 24 07/20/2023 NUSWA B VAGIN ITIS PLUS (VG+) bvab 2 Low - 0 score Not Available [facility] ([facility]) [address] [place], [address], 07/21/2023 20:06:45 07/18/19 24 07/20/2023 NUSWA B [...] prese nce of BV. This test was grisel barahona and its perfo rmanc e cassandra cteri stics deter mined by [facility]. It has not been clear ed or appro dion by the Food and Drug Admin istra tion. Not Available [facility] ([facility]) [address] [facility], [place], [address], 07/21/2023 20:06:45 07/18/19 24 07/20/2023 NUSWA B VAGIN ITIS PLUS (VG+) gavin albicans, VIKTORIA Negati ve negati ve Not Available [facility] ([facility]) [address] [place], [address], 07/21/2023 20:06:45 07/18/19 24 07/20/2023 NUSWA B VAGIN ITIS PLUS (VG+) gavin glabrata, VIKTORIA Negati ve negati ve Not Available [facility] ([facility]) [address] [place], [address], 07/21/2023 20:06:45 07/18/19 24 07/21/2023 NUSWA B VAGIN ITIS PLUS (VG+) trich vag by VIKTORIA Negati ve negati ve Not Available [facility] ([facility]) [address] [place], [address], 07/21/2023 20:06:45 07/18/19 24 07/21/2023 NUSWA B VAGIN ITIS PLUS (VG+) chlamydia trachomatis, VIKTORIA Negati ve negati ve Not Available [facility] ([facility]) [address] [place], [address], 07/21/2023 20:06:45 07/18/19 24 07/21/2023 NUSWA B VAGIN ITIS PLUS (VG+) neisseria gonorrhoeae, VIKTORIA Negati ve negati ve Not Available [facility] ([facility]) [address], [place], [address], 07/21/2023 20:06:45 08/14/19 23 08/07/2022 US, abdom en, limit ed No observ ation record ed. [email or web address] [address], [address], 08/27/2022 12:53:01 08/10/19 24 08/06/2023 US, pelvi s, trans abdom inal + trans vagin al No observ ation record ed. [email or web address] [address], [address], 08/26/2023 08:30:52 08/13/19 24 08/12/2023 XR, spine , scoli osis serie s No observ ation record ed. ALLY [address], [address], 08/14/2023 22:04:32 Result Notes None recorded. Problems Name Problem SNOMED Code Status Onset Date Resolution Date Notes Provider Name and Address Organization Details Recorded Time Polycysti c ovary syndrome 769343912 Active 2023 Fco Mondragon CNP [address] [place] [address], [address], [facility] 4 08:44:39 Spasm of back muscles 454079119 Active 2024 Halie Ferrera MD [address] [place] [address], [phone], [facility] 5 15:46:57 Alopecia areata 81108028 Active pt started at age 5 Stephanie Melendez MD [address] [place] [address], [address], [facility] 5 09:24:26 Alopecia 25058760 Completed 11/15/2014 Stephanie Melendez MD [address] [place] [address], [address] 6, [facility] 5 09:06:38 Scoliosis of lumbar spine 620934417 Active Stephanie Melendez MD [address] [place] [address], [address] 6, [facility] 4 15:07:29 Disorder of knee 761197616 Active Stephanie Melendez MD [address] [place] [address], [address] 6, [facility] 4 14:24:52 Serum thyroid stimulati ng hormone level outside reference range 178948994 Active Stephanie Melendez MD [address] [place] [address], [address] 6, [facility] 4 14:24:52 Irregular periods 14483102 Active 2017 Stephanie Melendez MD [address] [place] [address], [address] 6, [facility] 8 16:31:44 Venereal disease screening Active 2017 Stephanie Melendez MD [address] [place] [address], 778[address] 6, [facility] 8 16:32:15 Body mass index 30+ - obesity 140843369 Active 2017 Stephanie Melendez MD [address] [place] [address], [address] 6, [facility] 8 16:35:48 Scoliosis deformity of spine 786054399 Active 2017 Stephanie Melendez MD [address] [place] [address], [address] , [facility] 8 16:35:49 Neck pain 07731401 Active 2017 Stephanie Melendez MD [address] [place] [address], [address] 6, [facility] 8 16:35:51 Adjustmen t disorder with anxious mood 11677282 Active 2018 Stephanie Melendez MD [address] [place] [address], [address] 6, [facility] 9 08:33:47 Acute sinusitis 32747754 Active 2018 Stephanie Melendez MD [address] [place] [address], [address] 6, [facility] 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 20:41:38 Gastroeso phageal reflux disease 306493972 Active 2021 Stephanie Melendez MD [address] [place] [address], [address] 6, [facility] 20:41:40 Problem Notes None recorded. Procedures Surgical History Date Name Laterality Status Provider Name and Address Organization Details Recorded Time Skin Tag Removal w Lidocaine completed Fco Mondragon CNP [address] [place], [address], [facility] 05/31/2021 08:58:24 No Previous Surgeries completed YADIEL Thomas [facility] 08/01/2022 08:43:38 varicose vein operation completed YADIEL Thomas [facility] 08/01/2022 08:53:12 Imaging Results Imaging Date Name Status LastModified by Organization Details LastModified Time 08/07/2022 US, abdomen, limited completed [email or web address] [address], [address], 08/27/2022 12:53:01 08/06/2023 US, pelvis, transabdominal + transvaginal completed [email or web address] [address], [address], 08/26/2023 08:30:52 08/12/2023 XR, spine, scoliosis series completed [address] [place], [address], 08/14/2023 22:04:32 Procedure Notes None recorded. Medical [...] completed Not Available Not Available Not Available naproxen 500 mg tablet Take 1 tablet twice a day by oral route for 15 days. 2024 active Not Available Not Available Not Avai lable spironolact one 50 mg tablet PLEASE SEE ATTACHED FOR DETAILED DIRECTION S active Not Available Not Available No t Available amoxicillin 500 mg-potassiu m clavulanate 125 mg tablet active Not Available Not Available Not Available cyclobenzap rine 5 mg tablet Take 1 tablet every day by oral route at bedtime for 30 days. 2024 active Not Available Not Available Not Avai lable clobetasol- emollient 0.05 % topical cream active Not Available Not Available Not Available chlorhexidi ne gluconate 0.12 % mouthwash RINSE WITH HALF A CAPFUL TWICE A DAY. SPIT AND DO NOT SWALLOW. 06/04 completed Not Available Not Available Not Available Vitamin D3 50 mcg (2,000 unit) capsule Take 2 capsules every day by oral route for 90 days. 2024 active Not Available Not Available Not Avai lable [facility] n 07/13 completed Not Available Not Available Not Available Vitals Date Recorded Body height Pain severity - 0-10 verbal numeric rating [Score] - Reported Body mass index (BMI) Body weight Body temperature Heart rate Oxygen saturation Oxygen saturation in Arterial blood by Pulse oximetry Systolic blood pressure Diastolic blood pressure Provider Name and Address Organization Details Last Updated DateTime 3 168.91 cm 0 36.9 kg/m2 285761. 43 g 97.3 [degF] 72 /min 98 % 98 % 98 mm[Hg] 70 mm[Hg] YADIEL Thomas [facility]. 3 08:56:19 Date Recorded Body height Body mass index (BMI) Body weight Heart rate Systolic blood pressure Diastolic blood pressure Provider Name and Address Organization Details Last Updated DateTime 4 168.91 cm 38.6 kg/m2 598714. 51 g 78 /min 123 mm[Hg] 82 mm[Hg] Ludy Aguilar [facility]. 4 15:04:58 Date Recorded Body height Respiratory rate Body mass index (BMI) Body weight Body temperature Oxygen saturation Oxygen saturation in Arterial blood by Pulse oximetry Heart rate Pain severity - 0-10 verbal numeric rating [Score] - Reported Systolic blood pressure Diastolic blood pressure Provider Name and Address Organization Details Last Updated DateTime 4 168.91 cm 18 /min 38 kg/m2 069861. 86 g 97.6 [degF] 97 % 97 % 72 /min 4 106 mm[Hg] 69 mm[Hg] Kia Acosta i [facility]. 4 08:22:40 Date Recorded Body height Body mass index (BMI) Body weight Body temperature Heart rate Oxygen saturation Oxygen saturation in Arterial blood by Pulse oximetry Pain severity - 0-10 verbal numeric rating [Score] - Reported Systolic blood pressure Diastolic blood pressure Provider Name and Address Organization Details Last Updated DateTime 5 168.91 cm 33.1 kg/m2 69014.2 1 g 98 [degF] 72 /min 98 % 98 % 5 106 mm[Hg] 69 mm[Hg] Alecia hansen [facility] 5 15:29:28 Social History Question Answer Notes LastModified by Organizat ion Details LastModified Time Tobacco Smoking Status Never Smoker Antonia Ángel jeffery [facility] 11/11/2013 14:40:12 Do You Have An Advance [...] Type Of Diet Are You Following? REGULAR [email or web address] Information not available 11/11/2013 Do You Or Have You Ever Used E-cigarettes Or Vape? 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 Right Information not available 05/31/2021 If Pulse Oximetry Was Done: Is The Patient's Sp02 Less Than 93% On Room Air? No Information not available 08/01/2022 What Was The Date Of Your Most Recent Tobacco Screening? 08/06/2024 [email or web address] Information not available 08/06/2024 Have You Ever Been Counseled For Unhealthy [...] Anxious, Or Unable To Sleep At Night)? [id number] Information not available 05/31/2021 Do You Use [...] LastModified Time Mother Vertigo [email or web address] Not available 14:51:54 Maternal Uncle Hearing disorder [email or web address] Not available 2024 14:51:54 Maternal Grandfather Alopecia areata [email or web address] Not available 2024 14:51:54 Father Malignant neoplasm of prostate [email or web address] Not available 2024 14:51:54 Maternal Aunt Hearing disorder [email or web address] Not available 2024 14:51:54 Maternal Grandmother Myocardial infarction Not available 11/15 [...] Immunizations Vaccine Type Date Status Note Provider Cole sin and Address Organization Details Recorded Time meningococcal MCV4P 5 completed Not Available [facility] 05/01/2019 02:10:03 Tdap 8 completed Not Available [facility] 05/01/2019 02:14:01 varicella 1 completed Sarahidevi Peace NCMA null, [facility] 08/01/2022 09:48:45 varicella 2 completed Sarahidevi Peace NCMA null, [facility] 08/01/2022 09:48:45 meningococcal ACWY, unspecified formulation 8 completed Sarahidevi Peace NCMA null, [facility] 08/01/2022 09:49:02 MMR 8 completed Bijal Harris null, [facility] 11/21/2017 11:57:53 MMR 2 completed Bijal Harris null, [facility] 11/21/2017 11:58:02 polio, unspecified formulation 7 completed Sarahi Peace NCMA null, [facility] 08/01/2022 09:49:03 polio, unspecified formulation 7 completed Sarahidevi Peace NCMA null, [facility] 08/01/2022 09:49:03 polio, unspecified formulation 7 completed Sarahidevi Peace NCMA null, [facility] 08/01/2022 09:49:03 polio, unspecified formulation 2 completed Sarahidevi Peace NCMA null, [facility] 08/01/2022 09:49:03 Tdap 8 completed Bijal Harris null, [facility] 11/21/2017 12:00:44 COVID-19, mRNA, LNP-S, PF, 30 mcg/0.3 mL dose 0 completed Sarahi Nata, NCMA null, [facility] 08/01/2022 09:48:45 COVID-19, mRNA, LNP-S, PF, 30 mcg/0.3 mL dose 1 completed Sarahi Ryel, NCMA null, [facility] 08/01/2022 09:48:45 COVID-19, mRNA, LNP-S, PF, 30 mcg/0.3 mL dose 1 completed Sarahi Ryel, NCMA null, [facility] 08/01/2022 09:48:45 Influenza, MDCK, quadrivalent, PF 8 completed Sarahi Ryel, NCMA null, [facility] 08/01/2022 09:48:44 Influenza, MDCK, quadrivalent, PF 7 completed Sarahi Ryel, NCMA null, [facility] 08/01/2022 09:48:45 OPV 7 completed Sarahi Ryel, NCMA null, [facility] 08/01/2022 09:48:45 OPV 7 completed Sarahi Ryel, NCMA null, [facility] 08/01/2022 09:48:45 OPV 2 completed Sarahi Ryel, NCMA null, [facility] 08/01/2022 09:48:45 OPV 7 completed Sarahi Ryel, NCMA null, [facility] 08/01/2022 09:48:45 HPV, quadrivalent 9 completed Sarahi Ryel, NCMA null, [facility] 08/01/2022 09:48:45 HPV, quadrivalent 9 completed Sarahi Ryel, NCMA null, [facility] 08/01/2022 09:48:45 HPV, quadrivalent 8 completed Sarahi Ryel, NCMA null, [facility] 08/01/2022 09:48:45 Hep B, adult 7 completed Sarahi Ryel, NCMA null, [facility] 08/01/2022 09:48:45 Hep B, adult 7 completed Sarahi Ryel, NCMA null, [facility] 08/01/2022 09:48:45 Hep B, adult 7 completed Sarahidevi Peace NCMA null, [facility] 08/01/2022 09:48:45 Hep B, adult 7 completed Sarahidevi Peace NCMA null, [facility] 08/01/2022 09:48:45 Hep B, adult 7 completed Sarahidevi Peace NCMA null, [facility] 08/01/2022 09:48:45 Hep B, adult 6 completed Sarahidevi Peace NCMA null, [facility] 08/01/2022 09:48:45 Hep A, adult 8 completed Sarahidevi Peace NCMA null, [facility] 08/01/2022 09:48:45 Hib (PRP-OMP) 8 completed Sarahidevi Peace NCMA null, [facility] 08/01/2022 09:48:45 Hib (PRP-OMP) 7 completed Sarahi Peace NCMA null, [facility] 08/01/2022 09:48:45 Meningococcal MCV4O 8 completed Sarahi Peace NCMA null, [facility] 08/01/2022 09:48:45 DTaP, 5 pertussis antigens 2 completed Sarahidevi Peace NCMA null, [facility] 08/01/2022 09:48:45 DTaP, 5 pertussis antigens 7 completed Sarahidevi Peace NCMA null, [facility] 08/01/2022 09:48:45 DTaP, 5 pertussis antigens 8 completed Sarahidevi Peace NCMA null, [facility] 08/01/2022 09:48:45 DTaP-Hib 7 completed Sarahidevi Peace NCMA null, [facility] 08/01/2022 09:48:45 DTaP-Hib 7 completed Sarahi Ryel, NCMA null, [facility] 08/01/2022 09:48:45 Influenza, split virus, quadrivalent, PF 1 completed Sarahi Ryel, NCMA null, [facility] 08/01/2022 09:48:45 Influenza, split virus, quadrivalent, PF 0 completed Sarahi Ryel, NCMA null, [facility] 08/01/2022 09:48:45 Influenza, split virus, quadrivalent, PF 2 completed Sarahi Ryel, NCMA null, [facility] 08/01/2022 09:48:45 Influenza, split virus, quadrivalent, PF 9 completed Sarahi Ryel, NCMA null, [facility] 08/01/2022 09:48:45 Past Encounters Encounter ID Performer Location Encounter Start Date Encounter Closed Date Diagnosis/Indication Diagnosis SNOMED-CT Code Diagnosis ICD10 Code Diagnosis Note [id number] [facility] office [address] [place] [address] 11/11/2013 14:05:50 11/11/2013 15:26:31 Well child [id number] Alopecia [id number] Scoliosis of lumbar spine 479428113 [id number] Celeste Templeton [facility] office [address] [place] [address] 02/16/2014 10:51:53 02/16/2014 13:31:46 Disorder of knee 758549988 Discussed with the patietn she has NO redness today and it is difficult to diagnose something if you do not see it.Althoug h since she has alopecia ,I will check for systemic diease ESR,CRP,CC P ,CLAUDETTE,RF,TS H ,uric acid,CBC and Chem today.Aske d patient to come here as as she develops knee rash and redness ,so we can see it hopefully will have answers. Alopecia [id number] Follow ed by [facility],will add FSH,LH today to check for PCOS. [id number] [facility] office [address] [place] [phone] 03/01/2014 12:56:14 03/01/2014 15:27:49 Disorder of knee 993389397 Given patient's elevated ESR and history of alopecia, recommend follow-up with rheumatolo gist. Serum thyr oid stimulating hormone level outside reference range 522676502 Pt's low TSH in the context of normal values for T3 and T4 could indicate subclinica l hyperthyro idism or Solange' s hyperthroi dism. Pt instructed to f/u with TSH and T4 in March. [id number] Marko Reneeine [facility] office [address] [place] [address] 11/15/2014 08:04:16 11/15/2014 09:33:45 Well child [id number] Alopecia areata 02053251 Requires a meningitis vaccination 613265492 [id number] MD ANNA Alvarez_Melissa osullivantangled yarn spool straightener [address] [place] [address] 11/20/2017 15:42:29 11/21/2017 12:09:27 Adult health examination 565087299 Z00.00 Irregular periods 628391 07 N92.6 Venereal d isease screening 771286717 Z11.3 Body mass index 30+ - obesity 132133058 Z68.39 Scoliosis deformity of spine 986739235 M41.9 Neck pain 90648831 M54.2 doing US all day [id number] MD lisa Cabral wellness associate ananya arteaga [address] [place], [place] [address] [place] [address] 11/27/2017 08:25:33 11/27/2017 09:20:09 Gynecologic examination 73436017 Z01.411 Irregular intermenstrual bleeding 02604938 N92.1 I reviewed possible etiologies of irregular menstrual bleeding, advised blood work as ordered and pelvic ultrasound and follow up with me after all results available Body mass index 30+ - obesity 831615005 Z68.33 advised weight loss [id number] MD lisa Cabral wellness associate ananya arteaga [address] [place], [place] [address] [place] [address] 12/04/2017 08:49:57 12/04/2017 10:31:32 Irregular periods 84851227 N92.6 All Agnes's blood tests and ultrasound are normal. As to this point, I don't see evidence of PCOS in blood work or ultrasound . Other endocrinol ogical possibilit ies are rule out at this time. I reviewed medical options to regulate her cycle such as cyclical progestin or combined estrogen progestin pills. She is not in a [facility] ip and does not need contracept ion at this time. She does not want to start on any medication . I then advised her to keep track of her menstrual diary and try to loose weight. I will follow up with her in 6 months. She is advised to call with any concern. Body mass index 30+ - obesity 952952423 Z68.34 advised weight loss [id number] MD ANNA Harvey_Aubu tangled yarn spool straightener [address] [place] [phone] 03/30/2018 16:04:32 03/30/2018 16:36:25 Upper respiratory infection 33506218 J06.9 patient is a recovering from viral illness. She already feels better today compared to last week. No chills no fever. Rapid strep negative.d oes not look clinically like strep. Lungs clear. No fever. She has left ear fluid clear. She will use Flonase 2 sprays each nostril once daily and Claritin 10 mg daily. Hopefully will get better by then this week Fluid leve l behind tympanic membrane 372536868 H65.20 see above. Goiter 6951368 E04.9 slightly enlarged thyroid, I did not feel nodules on exam. 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 I placed referral for thyroid ultrasound to clarify. Asked patient to call if she has difficulty scheduling [id number] Connor Campos MD [email or web address] [facility] associate ananya - [facility] [address] BELIA ARTEAGA [address] 06/29/2018 10:42:25 06/29/2018 13:04:16 Contraception care management [id number] Z30.9 I discussed levonorges trel vs. copper IUDs vs. nexplanon with risks, benefits, efficacy, side effects of each options in detail. She wants to get Kyleena IUD. Timing of insertion and benefits of cytotec for cervical dilatation as well as side effects reviewed in detail. All question answer. Handout provided. Body mass index 30+ - obesity 176442907 Z68.34 advised weight loss [id number] MD ANNA Alvarez_Melissa tangled yarn spool straightener[address] [address] 01/04/2019 07:53:57 01/04/2019 08:43:55 Adult health examination 822811681 Z00.00 Body mass index 30+ - obesity 548062820 Z68.34 Adjustment disorder with anxious mood 93765765 F43.22 She has been going through a lot with her dad - terminal cancer. Her mother is out of work disabled due to health issues. She graduated from school and is working. 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 Screening for cardiovascular system disease 539442645 Z13.6 Venereal d isease screening 423838714 Z11.3 Screening for disorder 119895657 Z13.9 Thyroid nodule 533224280 E04.1 Acute sinusitis 20326045 J01.90 Pain in throat 078425670 R07.0 [id number] MD Jam Alvarez rn [address] [address] 06/25/2019 10:37:23 06/25/2019 11:21:30 Thyroid nodule 826831100 E04.1 Irregular periods 152806 07 N92.6 Venereal d isease screening 211668339 Z11.3 [id number] Fco Mondragon CNP [facility] - [place] [address] [place] [address] 05/31/2021 08:10:20 05/31/2021 08:55:57 Gynecologic examination 68660123 Z01.419 Normal breast and pelvic exam today. F/u in one year for repeat. Screening for malignant neoplasm of cervix 015995937 Z12.4 Pap due Skin tag [id number] L91.8 Removed per pt request, She tolerate proceudre well. Care instructio ns provided, will check pathology Body mass index 30+ - obesity 374838380 Z68.34 [id number] COURTNEY Barnhart_[facility] - [address] [place] [address] 06/04/2022 09:36:23 06/04/2022 10:06:16 Gynecologic examination 74033897 Z01.419 Normal breast and pelvic exam today. F/u in one year for repeat. Irregular periods 744768 07 N92.6 Will r/o thyroid dysfunctio n, hormone abnormalit ies, diabetes. Body mass index 30+ - obesity 962593908 Z68.34 [id number] Stephanie [facility] [address] 07/17/2021 14:41:58 07/17/2021 15:39:36 Adult health examination 798085763 Z00.00 Screening for disorder 109212788 Z13.0 Endocrine/ metabolic screening 802871231 Z13.29 Screening for cardiovascular system disease 378614270 Z13.6 Hyperlipid emia screening 190062896 Z13.220 Venereal d isease screening 115069911 Z11.3 Alopecia areata 38196866 L63.8 Gastroesop hageal reflux disease 323775330 K21.9 Dermal mycosis 56201010 B35.3 [id number] Stephanie Melendez MD [facility] [address] [place] [address] 08/01/2022 08:39:41 08/01/2022 09:17:30 Adult health examination 945128970 Z00.00 Screening for disorder 057529084 Z13.0 Endocrine/ metabolic screening 077314645 Z13.29 Screening for cardiovascular system disease 968853750 Z13.6 Hyperlipid emia screening 850927260 Z13.220 Vitamin D deficiency 347 01458 E55.0 Tinea pedis 6741328 B35. 3 Body mass index 30+ - obesity 370192446 Z68.36 Scoliosis deformity of spine 137296258 M41.9 [id number] COURTNEY Barnhart_[facility] - [address] [place] [address] 07/18/2023 15:00:48 07/18/2023 15:34:34 Gynecologic examination 11424613 Z01.419 Normal breast and pelvic exam today. F/u in one year for repeat. Irregular periods 727856 07 N92.6 Will get US as it was not done last year. Patient requesting to have US done at her work. Will send records over. Vaginal discharge 600818 006 N89.8 Will r/o other causes of abnormal bleeding. [id number] Stephanie Melendez MD [facility] [address] [place] [address] 08/11/2023 08:14:59 08/11/2023 08:55:19 Adult health examination 377248138 Z00.00 Screening for disorder 172649402 Z13.0 Endocrine/ metabolic screening 012427056 Z13.29 Screening for cardiovascular system disease 759958989 Z13.6 Hyperlipid emia screening 231793938 Z13.220 Body mass index 30+ - obesity 705083397 Z68.38 Scoliosis deformity of spine 404875115 M41.85 Tendinitis of right hand [id number] 8358126 M67.079 [id number] Fco Mondragon CNP [facility] - [address] [place] [address] 08/14/2023 07:51:42 08/14/2023 10:25:28 Polycystic ovary syndrome 702192137 E28.2 I discussed with the patient that with her history consistent with oligo ovulation and history of polycystic ovaries and she meets the diagnostic criteria for polycystic ovarian syndrome. I discussed the following complicati ons of PCOS with the patient -1.Anovula tory infertilit y - discussed the decreased frequency of ovulation with PCOS and thus decreased chances of conception . I discussed available augmentati on induction options for fertility management . I stressed on weight loss for improving ovulation frequency and decrease long-term morbidity from polycystic ovaries2. hyperandro genism - discussed increased frequency of hirsutism and acne and patient with PCOS.3. Endometria l protection - I discussed my recommenda tion for using a progestero ne based therapy for endometria l protection from developmen t of hyperplasi a or malignancy due to prolonged unopposed estrogen exposure in patients with PCOS, alternativ e options reviewed including NICOLE/POP/De po/ and Provera. Provera to be considered if cycles become more irregular. 4. Also discussed increased risk of diabetes in patients with PCOS, reviewed metformin as recommenda tion for insulin resistance prevention and management 5 . discussed increased prevalence of depression and anxiety in patient with PCO S.during the length of my counseling , I stressed very heavily on lifestyle management with diet and exercise in addition to medication management to reduce comorbidit ies from polycystic ovarian syndrome. Patient will reach out to me on what she decides for management . [id number] Halie Ferrera MD [facility] tangled yarn spool straightener[address] [address] 08/06/2024 14:51:53 08/06/2024 16:00:28 Spasm of back muscles 702595458 M62.830 Health Concerns Section Related Observation LastModified by Organization Detai ls LastModified Time None Recorded Concern Status LastModified by Organization Details LastModified Time None Recorded Advance Directives Directive N: Payers Encounter Date Sequence Insurance Name Policy Number Policy Lewis Covered Member ID Lewis Member ID Guarantor Name 08/01/2022 1 [employer] [place] [id number] Agnes Lee [id number] Augie Lee 07/18/2023 1 [employer] [place] [id number] Agnes Lee [id number] Augie Lee 08/11/2023 1 [employer] [place] [id number] Agnes Lee [id number] 847 Augie Lee 08/14/2023 1 [employer] [place] [id number] Agnes Lee [id number] Augie Lee 08/06/2024 1 [employer] [place] [id number] Agnes Lee [id number] 847 Augie Lee Notes Date Note Type Note Provider Name and Address Organization Details Recorded Time 08/01/2022 text/html Pt is here for h er physical exam.PAP 05/31/[address] Campos. ROS:Seen by SALES OPERATIONS COORDINATOR for irregular znydualc3w and TSH NL; other hormone tests were NLAlopecia - stable. Taking minoxidil foot rash. Not itchy. In between the toes. 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 Problem list:Eczema, alopecia. Clobetasol cream improves the eczema. 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 Smith. On minoxidil. She has followed with radiotelegraph operator from [facility] for years, Dr. Kate Rojas. MED: topical clobetasol cream. US thyroid: several small nodules, benign, 04/2018 Vit D def. Scoliosis. Stephanie Melendez MD [address] [place] [address], [phone], [facility] [employer]. 08/01/2022 09:57:14 07/18/2023 text/html Annual GYNReport ed [...] Psychological symptoms:No depression Here today for annual SALES OPERATIONS COORDINATOR exam.PMH: Vit D deficiency, thyroid nodules, alopecia. She is on Minoxidil for alopecia.No longer taking vitamin D daily. 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 Single. Last pap 2021 nl Contraception: AbstinenceCycles are 5 weeks usually, irregular with random spotting.Had labs last year to r/o PCOS or other causes of cycle irregular and all were normal.No US done. Patient agreeable to US. Fco Mondragon CNP [address] [place], [phone], [facility] [employer]. 07/20/2023 13:49:57 08/11/2023 text/html Pt is here for h er physical exam.PAP 05/31/21 by Fco ROS:Seen by SALES OPERATIONS COORDINATOR - recent US showed polycystic ovaries.a1c was NL. Pt needs to upload in the system. She has to go to [facility]. C/O R hand pain at palm and fingers.C/O L lumbar pain under the deformity of scoliosis. 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 Problem list:Eczema. Clobetasol cream improves the eczema. 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 Smith. On minoxidil. She has followed with radiotelegraph operator from [facility] for years, Dr. Kate Rojas. MED: topical clobetasol cream.Alopecia - stable on minoxidilUS thyroid: several small nodules, benign, 04/2018. Vit D def.Scoliosis. Wore a brace when younger. Stephanie Melendez MD [address] [place] [address], [phone], [facility] - [facility] Physician [facility]. 08/11/2023 09:05:42 08/14/2023 text/html Agnes hare today for management of PCOSRecent lab work: 2022 nl. A1C in 07/2023 was 5.4.Ultrasound: 08/06/23- ovaries show bilateral polycystic appearance measuring volume 14 ml and 7 ml respectivelyContracept ion: AbstinenceCycles are 5 weeks usually, irregular with random spotting.Had labs last year to r/o PCOS or other causes of cycle irregular and all were normal.BMI 38.On spironolactone for alopecia Current regimen: NoneDesires : NoFor episcopal reasons, patient cannot take any control or anything that will control or manipulate ovulation. Denies abdominal pain, bloating, acne, unusual hair growth. This is a Telehealth visit, via modality {{[facility].[place] teams#}} .Patient understands the risks, benefits and limitations of this type of visit.Patient consents for this visit.This type of visit is being utilized as it was deemed higher risk for patient to come to office given the current risk of COVID-19/coronavirus infection. During this encounter the patient is located in their home. At the time of this encounter the Physician is in {{[facility]}} located at ___[address] [facility] . Visit Began: {{am pm 0800am#}}Visit Ended: {{am pm 0817am#}} 50% or greater of the time was spent on counselling and coordination of care.The following people were with the patient at time of this Telehealth visit: {{Patient only* Patient and}} . Fco Mondragon CNP [address] [place], [phone], [facility] Physician [facility]. 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 08/06/2024 16:04:06 OBGyn Episode No OBEpisode recorded.
--- OUTSIDE RECORDS SUMMARY | 2024-08-11 07:47 | XMS_ITS | Encounter Summary ---
Author Organization [facility] Address [address] [place] [phone] Phone Care Team Providers Care Water Treatment Plant Mechanic Name Role Phone Lizbeth Ballard MD Primary Care Provider Encounter Details Date Type Department Care Team (Late st Contact Info) Description 02/24/2017 Conversion Encounter Gil Shook MD [address] [place] [address] Gil Shook MD Social History Tobacco Use Types Packs/Day Years Used Date Smoking Tobacco: Never Comments:never smoker Comments Unknown Sex and Gender Information Value Date Recorded Sex Assigned at Not on file Legal Sex Female 12:01 PM EST Gender Identity Not on file Sexual Orientation Not on file documented as of this encounter Plan of Treatment Not on file documented as of this encounter Visit Diagnoses Not on filedocumented in this encounter Care Teams Water Treatment Plant Mechanic Relationship Specialty Start Date End Date Lizbeth Ballard MD [address] [place] [address] PCP - General 08/10/18 documented as of this encounter
--- OUTSIDE RECORDS SUMMARY | 2024-08-11 07:47 | XMS_ITS | Continuity of Care Document ---
Author Organization [facility] Practice Address [address] [place] [address] Care Team Providers Care Cotton Farmer Name Role Phone STEPHANIE CALDERÓN Primary Care Provider [phone] PAMELLA PETERSEN Vascular Surgeon DAVINA HORN Sail Cutter Assessment No assessment recorded. Plan of Treatment Reminders Order Date Submit Date Provider Last Modified By Organization Details Last Modified Time Details Appointments Physical 30 2024 02:30P M Stephanie Calderón MD Not available Not available Not available Physical 30 2024 03:30P M Fco Mondragon CNP Not available Not available Not available Lab None recorded. Referral None recorded. Procedures None recorded. Surgeries None recorded. Imaging XR, lumbar spine 2024 025 [facility] (Imaging), [address] [place] [address], [id number], 08/06/2024 16:21:49 XR, thoracic spine, 2 view 2024 025 [facility] (Im[facility]), [address] [place] [address], [id number], 08/06/2024 16:21:49 Medication Orders cyclobenz aprine 5 mg tablet [id number], [address] [facility], [place], [address], 08/06/2024 16:52:47 naproxen 500 mg tablet 2024 025 [id number], [address] [place], [address], 08/06/2024 16:52:47 Patient TargetsNo targets recorded. Patient InstructionsNo instructions recorded. Reason for Referral None Reported. Problems Name Problem SNOMED Code Status Onset Date Resolution Date Notes Provider Name and Address Organization Details Recorded Time Polycysti c ovary syndrome 726252852 Active 2023 Fco Mondragon CNP [address] [place], [address], [facility] 4 08:44:39 Spasm of back muscles 498076961 Active 2024 Halie Ferrera MD [address] [place] [address], [phone], [facility] 5 15:46:57 Alopecia areata 64766834 Active pt started at age 5 Stephanie Calderón MD [address] [place] [address], [phone], [facility] 5 09:24:26 Alopecia 33383524 Completed 11/15/2014 Stephanie Calderón MD [address] [place] [address], [phone], [facility] 5 09:06:38 Scoliosis of lumbar spine 898480345 Active Stephanie Calderón MD [address] [place] [address], [address] 6, [facility] 4 15:07:29 Disorder of knee 936114639 Siva Calderón MD [address] [place] [address], [address], [facility] 4 14:24:52 Serum thyroid stimulati ng hormone level outside reference range 220200635 Active Stephanie Calderón MD [address] [place] [address], [address], [facility] 4 14:24:52 Irregular periods 08865753 Active 2017 Stephanie Calderón MD [address] [place] [address], [address], [facility] 8 16:31:44 Venereal disease screening Active 2017 Stephanie Calderón MD [address] [place] [address], [address] 6, [facility] 8 16:32:15 Body mass index 30+ - obesity 507303762 Active 2017 Stephanie Calderón MD [address] [place] [address], [phone], [facility] 8 16:35:48 Scoliosis deformity of spine 932012534 Active 2017 Stephanie Calderón MD [address] [place] [address], [address] 6, [facility] 8 16:35:49 Neck pain 11736175 Active 2017 Stephanie Calderón MD [address] [place] [address], [phone] 6, [facility] 8 16:35:51 Adjustmen t disorder with anxious mood 70226414 Active 2018 Stephanie Calderón MD [address] [place] [address], [address] 6, [facility] 9 08:33:47 Acute sinusitis 02052051 Active 2018 Stephanie Calderón MD [address] [place] [address], [address], [facility] 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 2 20:41:38 Gastroeso phageal reflux disease 952299566 Active 2021 Stephanie Calderón MD [address] [place] [address], [address], [facility] 2 20:41:40 Problem Notes None recorded. Procedures Surgical History Date Name Laterality Status Provider Name and Address Organization Details Recorded Time 2 Skin Tag Removal w Lidocaine completed Fco Mondragon CNP [address] [place], [address], [facility] 05/31/2021 08:58:24 No Previous Surgeries completed YADIEL Thomas [facility] 08/01/2022 08:43:38 varicose vein operation completed Sarahi [facility] 08/01/2022 08:53:12 Imaging Results None recorded. Procedure Notes None [...] 2024 active Not Available Not Available Not Avdelvis labnati spironolact one 50 mg tablet PLEASE SEE [...] active Not Available Not Available Not [facility] 07/13 completed Not Available [...] Updated DateTime 5 168.91 cm 33.1 kg/m2 04589.2 1 g 98 [degF] 72 /min 98 % 98 % 5 106 mm[Hg] 69 mm[Hg] Alecia hansen [facility] 5 15:29:28 Social History Question Answer Notes LastModified by Organizat ion Details LastModified Time Tobacco Smoking Status Never Smoker Antonia jeffery [place] - [facility]. 11/11/2013 14:40:12 Do You Have An Advance [...] Type Of Diet Are You Following? REGULAR [email or web address] Information not available 11/11/2013 Do You Or Have You Ever Used E-cigarettes Or Vape? 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 [id number] Information not available 05/31/2021 Do You Use [...] N Heart Arrhythmia N Back/Neck Pain N Sleep Problems N Hypothyroidism N Depression N Sore Throat N Frequent Falls N Has Pacemaker N Soft Tissue Swelling N CHF (Congestive Heart Failure) N Obstructive Sleep Apnea N Anxiety Disorder N Dizziness N Obesity N Arthritis N Hot Flashes N Heart Attack (Myocardial Infarction) N Foot Problems N Heart Disease/Valve Disease N Cancer N Blood in Stool N Urinary Problem N ADHD N Diverticulitis (Inflammation of the mily l) N Endometriosis N Headache N Shortness of Breath N Stroke/TIA N Hypercholesterolemia N Allergy Symptoms N Aortic Aneurysm N Liver Disease N Organ Transplant N Change in Periods N Dialysis N Fibromyalgia N Kidney Disease N Hiatal Hernia N Hearing Problem N Fatigue N Deep Vein Thrombophlebitis N Joint Pain N Cough N Anemia N Blood Clot (Deep Vein Thrombosis) N Chest Pain N Heartburn N Pulmonary Embolism (Blood Clot in the Adriane ng) N Abdominal Pain N Ulcers N Peripheral Vascular Disease (PVD) N Gait Instability N Bleeding Disorder/DVT N Leg Swelling N [...] Time meningococcal MCV4P 5 completed Not Available [facility] 05/01/2019 02:10:03 Tdap 8 completed Not Available [facility] 05/01/2019 02:14:01 varicella 1 completed YADIEL Thomas [facility] 08/01/2022 09:48:45 varicella 2 completed YADIEL Thomas [facility] 08/01/2022 09:48:45 meningococcal ACWY, unspecified formulation 8 completed YADIEL Thomas [facility] 08/01/2022 09:49:02 MMR 8 completed Bijal jeffery [facility] 11/21/2017 11:57:53 MMR 2 completed Bijal jeffery [facility] 11/21/2017 11:58:02 polio, unspecified formulation 7 completed Sarahidevi Peace [facility] null, [facility] 08/01/2022 09:49:03 polio, unspecified formulation 7 completed Sarahi Nata NC[facility] null, [facility] 08/01/2022 09:49:03 polio, unspecified formulation 7 completed Sarahidevi Peace [facility] null, [facility] 08/01/2022 09:49:03 polio, unspecified formulation 2 completed Sarahidevi Peace [facility] null, [facility] 08/01/2022 09:49:03 Tdap 8 completed Bijal [facility], [facility] 11/21/2017 12:00:44 COVID-19, mRNA, LNP-S, PF, 30 mcg/0.3 mL dose 0 completed Sarahidevi Peace [facility] null, [facility] 08/01/2022 09:48:45 COVID-19, mRNA, LNP-S, PF, 30 mcg/0.3 mL dose 1 completed Sarahidevi Peace [facility] null, [facility] 08/01/2022 09:48:45 COVID-19, mRNA, LNP-S, PF, 30 mcg/0.3 mL dose 1 completed Sarahidevi Peace [facility] null, [facility] 08/01/2022 09:48:45 Influenza, MDCK, quadrivalent, PF 8 completed Sarahidevi Peace [facility] null, [facility] 08/01/2022 09:48:44 Influenza, MDCK, quadrivalent, PF 7 completed Sarahi Nata NCMA null, [facility] 08/01/2022 09:48:45 OPV 7 completed Sarahidevi Peace NCMA null, [facility] 08/01/2022 09:48:45 OPV 7 completed Sarahi Ryel, NCMA null, [facility] 08/01/2022 09:48:45 OPV 2 completed Sarahi Ryel, NCMA null, [facility] 08/01/2022 09:48:45 OPV 7 completed Sarahi Ryel, NCMA null, [facility] 08/01/2022 09:48:45 HPV, quadrivalent 9 completed Sarahi Ryel, NCMA null, [facility] 08/01/2022 09:48:45 HPV, quadrivalent 9 completed Sarahi Ryel, NCMA null, [facility] 08/01/2022 09:48:45 HPV, quadrivalent 8 completed Sarahi Ryel, NCMA null, [facility] 08/01/2022 09:48:45 Hep B, adult 7 completed Sarahi Ryel, NCMA null, [facility] 08/01/2022 09:48:45 Hep B, adult 7 completed Sarahi Ryel, NCMA null, [facility] 08/01/2022 09:48:45 Hep B, adult 7 completed Sarahi Ryel, NCMA null, [facility] 08/01/2022 09:48:45 Hep B, adult 7 completed Sarahi Ryel, NCMA null, [facility] 08/01/2022 09:48:45 Hep B, adult 7 completed Sarahi Ryel, NCMA null, [facility] 08/01/2022 09:48:45 Hep B, adult 6 completed Sarahi Ryel, NCMA null, [facility] 08/01/2022 09:48:45 Hep A, adult 8 completed Sarahi Ryel, NCMA null, [place] - [facility] 08/01/2022 09:48:45 Hib (PRP-OMP) 8 completed Sarahi Peace NCMA null, [facility] 08/01/2022 09:48:45 Hib (PRP-OMP) 7 completed RODRIGO ThomasMA null, [facility] 08/01/2022 09:48:45 Meningococcal MCV4O 8 completed Sarahi Peace NCMA null, [facility] 08/01/2022 09:48:45 DTaP, 5 pertussis antigens 2 completed Sarahi Peace NCMA null, [facility] 08/01/2022 09:48:45 DTaP, 5 pertussis antigens 7 completed RODRIGO ThomasMA null, [facility] 08/01/2022 09:48:45 DTaP, 5 pertussis antigens 8 completed Sarahi Peace NCMA null, [facility] 08/01/2022 09:48:45 DTaP-Hib 7 completed Sarahi Peace NCMA null, [facility] 08/01/2022 09:48:45 DTaP-Hib 7 completed Sarahi Peace NCMA null, [facility] 08/01/2022 09:48:45 Influenza, split virus, quadrivalent, PF 1 completed Sarahi Peace NCMA null, [facility] 08/01/2022 09:48:45 Influenza, split virus, quadrivalent, PF 0 completed Sarahidevi Peace NCMA null, [facility] 08/01/2022 09:48:45 Influenza, split virus, quadrivalent, PF 2 completed Sarahidevi Peace NCMA null, [facility] 08/01/2022 09:48:45 Influenza, split virus, quadrivalent, PF 9 completed YADIEL Thomas, [facility] 08/01/2022 09:48:45 Past Encounters Encounter ID Performer Location Encounter Start Date Encounter Closed Date Diagnosis/Indication Diagnosis SNOMED-CT Code Diagnosis ICD10 Code Diagnosis Note [id number] Halie Ferrera MD [facility] [address] [place] [phone] 08/06/2024 14:51:53 08/06/2024 16:00:28 Spasm of back muscles [id number] M62.830 Health Concerns Section Related Observation LastModified by Organization Detai ls LastModified Time None Recorded Concern Status LastModified by Organization Details LastModified Time None Recorded Payers Encounter Date Sequence Insurance Name Policy Number Policy Lewis Covered Member ID Lewis Member ID Guarantor Name 08/06/2024 1 [employer] [facility] (EPO) [id number] Agnes Lee [id number] Augie Lee Notes Date Note Type Note Provider Name and Address Organization Details Recorded Time 08/06/2024 text/html mid to high left high to mid back pain 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 08/06/2024 16:04:06 OBGyn Episode No OBEpisode recorded.
--- OUTSIDE RECORDS SUMMARY | 2024-08-11 07:47 | XMS_ITS | Clinical Summary ---
Author Organization [facility] Address [address] [place], [place] [address] Phone Care Team Providers Care Body And Frame Man Name Role Phone Lizbeth Ballard MD Primary Care Provider Immunizations Immunization Administration Dates Next Due DTaP 5 08/20/2001, 8,1996, 997,1996 HPV, Quadrivalent 10/07/2008,06/02/2008,03/31/20 08 Hep B, ped/adol 01/17/1997,1996,1996 Hib (PRP-T) 07/29/1997, 7,1996, 997 IPV 08/20/2001, 7,1996, 997 MMR 06/23/2001,07/29/1997 Meningococcal Conj (Menactra) MCV4P 09/18/2007 Tdap 09/18/2007 Varicella 11/02/2010,06/23/2001 Family History Relation Name Status Comments Father Alive Mother Alive Other Alive Siblings: Social History Tobacco Use Types Packs/Day Years Used Date Smoking Tobacco: Never Comments:never smoker Comments Unknown Sex and Gender Information Value Date Recorded Sex Assigned at Not on file Legal Sex Female 12:01 PM EST Gender Identity Not on file Sexual Orientation Not on file Last Filed Vital Signs Vital Sign Reading Time Taken Comments Blood Pressure 112/70 11/13/2012 12:00 AM EDT Pulse - - Temperature - - Respiratory Rate - - Oxygen Saturation - - Inhaled Oxygen Concentration - - Weight 74.4 kg (164 lb) 11/13/2012 12:00 AM EDT Height 167.6 cm (5' 6 ) 11/13/2012 12:00 AM EDT Body Mass Index 26.47 11/13/2012 12:00 AM EDT Plan of Treatment Health Maintenance Due Date Last Done Comments Hepatitis B Vaccines (3 of 3 - 3-dose series) 03/14/1997 01/17/1997, 1996, 1996 DTaP,Tdap,and Td Vaccines (7 - Td or Tdap) 09/17/2017 09/18/2007, 08/20/2001, 11/01/1997, Additional history exists Influenza Vaccines (#1) 2023 COVID-19 Vaccine ( season) 2023 HIB Vaccines Completed 07/29/1997, 10/13, 1996, Additional history exists MMR Vaccines Completed 06/23/2001, 07/29/1997 IPV Vaccines Completed 08/20/2001, 10/13, 1996, Additional history exists Meningococcal Vaccine Aged Out 09/18/2007 No jonny susan eligible based on patient's age to complete this topic HPV Vaccines Completed 10/07/2008, 05/15, 03/31/2008 Varicella Vaccines Completed 11/02/2010, 06/23/2001 Hepatitis A Vaccines Aged Out No long er eligible based on patient's age to complete this topic Men B Vaccine Aged Out No longer elig ible based on patient's age to complete this topic Pneumococcal Vaccine Aged Out No long er eligible based on patient's age to complete this topic Care Teams Body And Frame Man Relationship Specialty Start Date End Date Lizbeth Ballard MD [address] [place] [address] [address] [place] [address] PCP - General 08/10/18
--- OUTSIDE RECORDS SUMMARY | 2024-08-11 07:48 | XMS_ITS | Referral Summary ---
Author Organization [facility] Address [address] [place] [address] Care Team Providers Care Mapping Supervisor Name Role Phone Stephanie Calderón MD Primary Care Provider [phone] Allergies No known active allergies Medications cholecalciferol (VITAMIN D3) 2,000 unit capsule 2 Active ketoconazole-hy drocortisone 2-2.5 % cream 2 Active dz-jb-xohm-FA-C a carb-vit K (Women's Multivitamin) 18 mg-400 [...] Administration Dates Next Due Covid-19, Pfizer, mRNA, [place] valent, PF 30 mcg/0.3 mL dose (for [...] Description 01/04/2025 8:45 AM EDT Office Visit [facility] [address] [place] [phone] Hot Stick Worker: Ashley Vargas MD [address] [place] [phone] 03/29/2025 9:45 AM EST Office Visit [facility] [address] [place] [phone] Hot Stick Worker: Ashley Vargas MD [address] [place] [address] Procedures * Due to [place] Endoart law, this organization might not be sharing negative HIV tests. Procedure Name Priority Date/Time Associated Diagnosis Comments COMPREHENSIVE METABOLIC PANEL Routine 06/05/2020 1:16 PM EST from Last 3 Months or Most Recently Relevant to Health Maintenance Results * Due to [place] Endoart law, this organization might not be sharing [...] CONVERSION DATA LAB 06/05/2020 1:16 PM EST us Dee [facility] BLOOD ORDERABLES Final Resu lt CONVERSION DATA LAB from Last 3 Months or Most Recently Relevant to Health Maintenance Insurance [employer] Care Teams Mapping Supervisor Relationship Specialty Start Date End Date Stephanie Calderón MD PCP - General Family Medicine 07/23/21
== END 2024-08-11 07:41 | disposition home or self-care (01) ==
LOC: HO.XRAY 07:40
PROVIDERS: PCP Family Medicine; Visit Provider Family Medicine
DX: M62.830 Muscle spasm of back (principal)
CPT/HCPCS: 72070; 72100

== ENCOUNTER → 2024-08-11 07:48 | Outpatient (BNV) | payer OTHER, SELFPAY | PROVIDERS: PCP Family Medicine; Visit Provider Radiology Diagnostic Radiology | DX: M41.86 Other forms of scoliosis, lumbar region (principal); M41.35 Thoracogenic scoliosis, thoracolumbar region | CPT/HCPCS: 72070; 72100 ==

== ENCOUNTER 2024-08-26 14:04 | Outpatient (AMB) | payer OTHER, SELFPAY ==
--- NOTE | 2024-08-26 14:08 | MHC.OFFVIS ---
Intake Visit Reasons: Follow up new VV Intake Note: Patient presents for VV. Patient had venaseal around two years ago. States her right leg is beginning to hurt again. Left leg also has some veins that she would like looked at. Accompanied by: Self / Same As Patient Allergies No Known Allergies Allergy (Verified 08/26/24 14:11) HPI HPI Follow up new VV: Details: Very pleasant 21-year-old female presents for follow-up regarding right lower extremity venous disease. She had actually seen us 3 years prior where she underwent right great saphenous vein ablation. He has developed new varicosities throughout the thigh and calf which have been a source of pain and discomfort for her. 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 She now presents for follow-up regarding venous disease. 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[employer] [place] Review of Systems Const Reports as per HPI ENT Reports no additional complaints Card Denies chest pain, Denies chest pain at rest and Denies chest pain with activity Resp Denies chest congestion and Denies cough GI Reports no additional complaints Musc Details: pain over varicosities, aching of lower extremities, swelling, cramping, heaviness and tiredness, itching Denies abnormal gait Skin/Breast Reports pruritus and Denies wounds Neuro Reports no additional complaints and Denies abnormal gait Psych Denies no additional complaints Physical Exam Const General: cooperative, healthy appearing and comfortable Orientation/consciousness: oriented to person, oriented to place and oriented to time Neck Carotids: no bruits Chest Chest palpation & inspection: normal inspection of the chest and normal palpation of entire chest wall Resp Effort & Inspection: normal respiratory effort and able to speak in complete sentences Cardio Rate: regular rate Heart sounds: S1 normal heart sound present and S2 normal heart sound present Peripheral pulses: Peripheral pulses 2+ throughout GI Inspection: Yes normal to inspection Skin Other: +2 edema, large rope-like varicosities greater than 4 mm right thigh and calf CEAP Classification C4 - skin color changes Ep - Etiology Primary As - superficial veins P - reflux General skin exam: dry skin Neuro General: oriented to person, oriented to place and oriented to time Extrem Right lower extremity: full ROM, normal capillary refill and edema Left lower extremity: full ROM, normal capillary refill and edema Psych Mental Status: mental status grossly normal Assessment & Plan Assessment & Plan (1) Varicose veins of right lower extremity with inflammation: Comment: 01/11/2022 - right great saphenous vein Cyanoacralate ablation Code(s): I83.11 - Varicose veins of right lower extremity with inflammation Category: Medical Plan: This patient has varicose veins with inflammation. They continue to be a source of discomfort for the patient. The patient has tried conservative treatment with compression, leg elevation and exercise program for over 3 months time. They have been compliant with all treatment. This has provided minimal relief for the patient. I do not anticipate this course of treatment will alter the underlying etiology. The patient has been scheduled for lower extremity venous treatment inclusive of --- right leg microphlebectomy. Risks, benefits, and complications of this procedure has been discussed in detail with the patient including but not limited to bleeding, infection, and the development of a DVT. The patient has demonstrated a clear understanding and has consented. We will schedule the patient as soon as possible. Thank you for allowing us to participate in this patient's care. If there are any questions or concerns please do not hesitate to contact us. Coding Level of Care Code Est Pt Level 4 (18928) Diagnoses Varicose veins of right lower extremity with inflammation I83.11
--- OUTSIDE RECORDS SUMMARY | 2024-08-26 14:47 | XMS_ITS | Encounter Summary ---
Author Organization [facility] Address [address] [place] [address] Care Team Providers Care Color Printer Operator Name Role Phone Stephanie Calderón MD Primary Care Provider [phone] Reason for Visit * Reason Onset Date Comments CS - Apppointment 03/19/2022 Encounter Details Date Type Department Care Team (Late st Contact Info) Description 03/19/2022 Telephone [facility] Central Scheduling Department [address] [place] [address] Telephone Intake, Staff CS - Apppointment Social [...] Description 01/04/2025 8:45 AM EDT Office Visit [facility] 4th Floor [address] [place] [phone] Optometrist/Practice Owner: Ashley Vargas MD [address] [place] [id number] 03/29/2025 9:45 AM EST Office Visit [facility] [address] [phone] Optometrist/Practice Owner: Ashley Vargas MD [address] [place] [id number] documented as of this encounter Visit Diagnoses Not on filedocumented in this encounter Care Teams Color Printer Operator Relationship Specialty Start Date End Date Stephanie Calderón MD PCP - General Family Medicine 07/23/21 documented as of this encounter
--- OUTSIDE RECORDS SUMMARY | 2024-08-26 14:47 | XMS_ITS | Clinical Summary ---
Author Organization [facility] Address [address] [place] [address] Care Team Providers Care Arts Administrator Or Manager Name Role Phone Stephanie Calderón MD Primary Care Provider [phone] Allergies No known active allergies Medications cholecalciferol (VITAMIN D3) 2,000 unit capsule 2 Active ketoconazole-hy drocortisone 2-2.5 % cream 2 Active eq-qo-fkxw-FA-C a carb-vit K (Women's Multivitamin) 18 mg-400 [...] Administration Dates Next Due Covid-19, Pfizer, mRNA, Toole valent, PF 30 mcg/0.3 mL dose (for [...] 1 mL IM 02/07/2017,11/06/2016,10/02/2016,1996,1996,1996 Influenza, Injectable, Madin Newport Canine Kidney, Preservative Free, Quadrivalent 01/26/2018,02/18/2017 Influenza, [...] Description 01/04/2025 8:45 AM EDT Office Visit [facility] 4th Floor [address] [place] [phone] Bryologist: Ashley Vargas MD [address] [place] [phone] 03/29/2025 9:45 AM EST Office Visit [facility] 4th Floor [address] [place] [phone] Bryologist: Ashley Vargas MD [address] [place] [address] Health Maintenance Due Date Last Done Comments [...] complete this topic Procedures * Due to [place] [employer] law, this organization might not be sharing negative HIV tests. Procedure Name Priority Date/Time Associated Diagnosis Comments COMPREHENSIVE METABOLIC PANEL Routine 06/05/2020 1:16 PM EST from Last 3 Months or Most Recently Relevant to Health Maintenance Results * Due to [place] [employer] law, this organization might not be sharing [...] Most Recently Relevant to Health Maintenance Insurance [employer] Care Teams Arts Administrator Or Manager Relationship Specialty Start Date End Date Stephanie Calderón MD PCP - General Family Medicine 07/23/21
--- OUTSIDE RECORDS SUMMARY | 2024-08-26 14:47 | XMS_ITS | Encounter Summary ---
Author Organization [facility] Address [address] [place] [phone] Phone Care Team Providers Care Ict Teacher Name Role Phone Lizbeth Ballard MD Primary Care Provider Encounter Details Date Type Department Care Team (Late st Contact Info) Description 02/24/2017 Conversion Encounter Gil Shook MD [address] [place] [address] Gil Shook MD Social History Tobacco Use [...] on filedocumented in this encounter Care Teams Ict Teacher Relationship Specialty Start Date End Date Lizbeth Ballard MD [address] [place] [address] PCP - General 08/10/18 documented as of this encounter
--- OUTSIDE RECORDS SUMMARY | 2024-08-26 14:47 | XMS_ITS | Data Portability ---
Author Organization [facility] [employer], svmg_admin Address [address] [place] [id number] Care Team Providers Care Airconditioning Engineer Name Role Phone STEPHANIE MELENDEZ Primary Care Provider [phone] PAMELLA PETERSEN Vascular Surgeon DAVINA SMITH Woodwork Teacher Assessment Encounter Date Assessment Date Assessment LastModified [...] Lab CBC w/ auto diff 2023 024 [place] [facility], [address] [place] [address], [id number], 08/14/2023 11:27:20 lipid panel, serum 2023 024 ALLY [facility], [address] [place] [address], [id number], 08/14/2023 11:27:20 vitami n D, 25-hyd garfield, total, serum 2023 024 [place] [facility], [address] [place] [address], [id number], 08/14/2023 11:27:20 TSH, ultra- sensit joe, serum 2023 024 stephanie [facility], [address] [place] [address], [address], 09/09/2023 15:47:29 CMP, serum or plasma 2023 024 [facility], [address] [place] [address], [id number], 08/14/2023 11:27:20 vagina l pathog ens panel, VIKTORIA+pr obe, vagina l fluid 2023 024 [facility], [address] [place] [address], [id number], 07/21/2023 20:06:45 HbA1c (hemog lobin A1c), blood 2023 024 [facility], [address] [place] [address], [address], 08/12/2023 08:53:46 CBC w/ auto diff 2022 023 [facility], [address] [place] [address], [address], 08/05/2022 11:20:02 lipid panel, serum 2022 023 [facility], [address] [place] [address], [address], 08/05/2022 11:20:02 vitami n D, 25-hyd garfield, total, serum 2022 023 [facility], [address] [place] [address], [address], 08/05/2022 11:20:02 CMP, serum or plasma 2022 023 [facility], [address] [place] [address], [address], 08/05/2022 11:20:01 Referral occupa tional therap ist referr al 2023 024 [email or web address] [address] [place], [address], 05/23/2024 10:25:53 Procedures None record ed. Surgeries None record ed. Imaging XR, lumbar spine 2024 025 [facility] (Imaging), [address] [place], [address], 08/13/2024 09:30:58 XR, thorac ic spine, 2 view 2024 025 [facility] ([facility]), [address] [place], [address], 08/13/2024 08:34:39 XR, spine, scolio sis series - please measur e if possib le 2023 024 [facility] (Imaging), [address] [place], [address], 08/13/2023 06:41:35 US, pelvis - comple te pelvic US [email or web address] (Imaging), [address] [place], [address], 08/26/2023 08:31:40 Medication Orders cyclob enzapr ine 5 mg tablet 2024 025 [email or web address] [id number], [address] [facility], [place], [address], 08/06/2024 16:52:47 naprox en 500 mg tablet 2024 025 [email or web address] [id number], [address] [place], [address], 08/06/2024 16:52:47 clotri mazole 1 % topica l cream 2022 023 [id number], [address] [facility], [place], [address], 08/01/2022 09:53:43 Patient TargetsNo targets recorded. Patient Instructions Encounter Date Encounter Id Patient Instructions Last Modified By Organization Details Last Modified Time 08/01/2022 [id number] athlete's foot: care instructions Not available 08/01/2022 [...] Low - 0 score Not Available [facility] ([facility]) [address] [place], [address], 07/21/2023 20:06:45 07/18/19 24 07/20/2023 NUSWA B VAGIN ITIS PLUS (VG+) bvab 2 Low - 0 score Not Available [facility] ([facility]) [address] [place], [address], 07/21/2023 20:06:45 07/18/19 24 07/20/2023 NUSWA B [...] d be evalu ated to estab leola hudson osis. Total score 3-6: Indic ates the prese nce of BV. This test was grisel barahona and its perfo rmanc e cassandra cteri stics deter mined by [facility]. It has not been clear ed or appro dion by the Food and Drug Admin istra tion. Not Available [facility] ([facility]) [address] [facility], [place], [address], 07/21/2023 20:06:45 07/18/19 24 07/20/2023 NUSWA B VAGIN ITIS PLUS (VG+) gavin albicans, VIKTORIA Negati ve negati ve Not Available [facility] ([facility]) [address] [place], [address], 07/21/2023 20:06:45 07/18/19 24 07/20/2023 NUSWA B VAGIN ITIS PLUS (VG+) gavin glabrata, VIKTORIA Negati ve negati ve Not Available [facility] ([facility]) [address] [place], [address], 07/21/2023 20:06:45 07/18/19 24 07/21/2023 NUSWA B VAGIN ITIS PLUS (VG+) trich vag by VIKTORIA Negati ve negati ve Not Available [facility] ([facility]) [address] [place], [address], 07/21/2023 20:06:45 07/18/19 24 07/21/2023 NUSWA B VAGIN ITIS PLUS (VG+) chlamydia trachomatis, VIKTORIA Negati ve negati ve Not Available [facility] ([facility]) [address] [place], [address], 07/21/2023 20:06:45 07/18/19 24 07/21/2023 NUSWA B VAGIN ITIS PLUS (VG+) neisseria gonorrhoeae, VIKTORIA Negati ve negati ve Not Available [facility] ([facility]) [address] [facility], [place], [address], 07/21/2023 20:06:45 08/14/19 23 08/07/2022 US, abdom en, limit ed No observ ation record ed. [email or web address] [address], [address], 08/27/2022 12:53:01 08/10/19 24 08/06/2023 US, pelvi s, trans abdom inal + trans vagin al No observ ation record ed. [email or web address] [address], [address], 08/26/2023 08:30:52 08/13/19 24 08/12/2023 XR, spine , scoli osis serie s No observ ation record ed. ALLY [address], [address], 08/14/2023 22:04:32 08/14/19 25 08/11/2024 XR, thora cic spine , 2 view No observ ation record ed. [address], [address], 08/23/2024 13:57:33 08/14/19 25 08/11/2024 XR, lumba r spine No observ ation record ed. [address], [address], 08/23/2024 13:57:33 Result Notes None recorded. Problems Name Problem SNOMED Code Status Onset Date Resolution Date Notes Provider Name and Address Organization Details Recorded Time Polycysti c ovary syndrome 430983355 Active 2023 Fco Mondragon CNP [address] [place], [address], [facility] 08:44:39 Spasm of back muscles 055669771 Active 2024 Halie Ferrera MD [address] [place], [place], [address] [place] [address], [facility] 5 15:46:57 Alopecia areata 84183959 Active pt started at age 5 Stephanie Melendez MD [address] [place] [address], [address] [place] [address], [facility] 5 09:24:26 Alopecia 38923801 Completed 11/15/2014 Stephanie Melendez MD [address] [place] [address], [address] [place] [address], [facility] 5 09:06:38 Scoliosis of lumbar spine 386571283 Active Stephanie Melendez MD [address] [place] [address], [address] [place] [address], [facility] 4 15:07:29 Disorder of knee 443071025 Active Stephanie eMlendez MD [address] [place] [address], [address] [place] [address], [facility] 4 14:24:52 Serum thyroid stimulati ng hormone level outside reference range 557709543 Active Stephanie Melendez MD [address] [place] [address], [address], [facility] 4 14:24:52 Irregular periods 03898816 Active 2017 Stephanie Melendez MD [address] [place] [address], [address] [place] [address], [facility] 8 16:31:44 Venereal disease screening Active 2017 Stephanie Melendez MD [address] [place] [address], [address], [facility] 8 16:32:15 Body mass index 30+ - obesity 486030968 Active 2017 Stephanie Melendez MD [address] [place] [address], [address], [facility] 8 16:35:48 Scoliosis deformity of spine 116380710 Active 2017 Stephanie Melendez MD [address] [place] [address], [address], [facility] 8 16:35:49 Neck pain 97633794 Active 2017 Stephanie Melendez MD [address] [place] [address], [address], [facility] 8 16:35:51 Adjustmen t disorder with anxious mood 09822782 Active 2018 Stephanie Melendez MD [address] [place] [address], [address], [facility] 9 08:33:47 Acute sinusitis 07873154 Active 2018 Stephanie Melendez MD [address] [place] [address], [address], [facility] 9 08:35:11 Dermal mycosis 77032186 Active 2021 Stephanie Melendez MD [address] [place] [address], [address], [facility] 2 20:41:38 Gastroeso phageal reflux disease 347559077 Active 2021 Stephanie Melendez MD [address] [place] [address], [address], [facility] 2 20:41:40 Problem Notes None recorded. Procedures Surgical History Date Name Laterality Status Provider Name and Address Organization Details Recorded Time Skin Tag Removal w Lidocaine completed Fco Mondragon CNP [address] [place], [address], [facility] 05/31/2021 08:58:24 No Previous Surgeries completed YADIEL Thomas [facility] 08/01/2022 08:43:38 varicose vein operation completed Sarahi Peace HIBELIA [facility] 08/01/2022 08:53:12 Imaging Results Imaging Date Name Status LastModified by Organization Details LastModified Time 08/07/2022 US, abdomen, limited completed [email or web address] [address], [address], 08/27/2022 12:53:01 08/06/2023 US, pelvis, transabdominal + transvaginal completed [email or web address] [address], [address], 08/26/2023 08:30:52 08/12/2023 XR, spine, scoliosis series completed ALLY [address], [address], 08/14/2023 22:04:32 08/11/2024 XR, thoracic spine, 2 view active [address], [address], 08/23/2024 13:57:33 08/11/2024 XR, lumbar spine active [address], [address], 08/23/2024 13:57:33 Procedure Notes None recorded. Medical Equipment None [...] 2024 active Not Available Not Available Not Andrzej gillette spironolact one 50 mg tablet PLEASE SEE ATTACHED FOR DETAILED DIRECTION S active Not Available Not Available No t Available amoxicillin 500 mg-potassiu m clavulanate 125 mg tablet active Not Available Not Available Not Available cyclobenzap rine 5 mg tablet Take 1 tablet every day by oral route at bedtime for 30 days. 2024 active Not Available Not Available Not Avai nain clobetasol- emollient 0.05 % topical cream active [...] 2024 active Not Available Not Available Not Andrzej gillette [facility] 07/13 completed Not Available [...] DateTime 3 168.91 cm 0 36.9 kg/m2 215193. 43 g 97.3 [degF] 72 /min 98 % 98 % 98 mm[Hg] 70 mm[Hg] YADIEL Thomas [facility] 3 08:56:19 Date Recorded Body height Body mass index (BMI) Body weight Heart rate Systolic blood pressure Diastolic blood pressure Provider Name and Address Organization Details Last Updated DateTime 4 168.91 cm 38.6 kg/m2 515345. 51 g 78 /min 123 mm[Hg] 82 mm[Hg] Ludy Aguilar [facility] 4 15:04:58 Date Recorded Body height Respiratory rate Body mass index (BMI) Body weight Body temperature Oxygen saturation Oxygen saturation in Arterial blood by Pulse oximetry Heart rate Pain severity - 0-10 verbal numeric rating [Score] - Reported Systolic blood pressure Diastolic blood pressure Provider Name and Address Organization Details Last Updated DateTime 4 168.91 cm 18 /min 38 kg/m2 524520. 86 g 97.6 [degF] 97 % 97 % 72 /min 4 106 mm[Hg] 69 mm[Hg] Kia Acosta i [facility] 4 08:22:40 Date Recorded Body height Body mass index (BMI) Body weight Body temperature Heart rate Oxygen saturation Oxygen saturation in Arterial blood by Pulse oximetry Pain severity - 0-10 verbal numeric rating [Score] - Reported Systolic blood pressure Diastolic blood pressure Provider Name and Address Organization Details Last Updated DateTime 5 168.91 cm 33.1 kg/m2 70519.2 1 g 98 [degF] 72 /min 98 % 98 % 5 106 mm[Hg] 69 mm[Hg] Alecia hansen [facility] 5 15:29:28 Social History Question Answer Notes LastModified by Organizat ion Details LastModified Time Tobacco Smoking Status Never Smoker Antonia jeffery [facility] 11/11/2013 14:40:12 Do You Have An Advance Directive? No [email or web address] Information not available 11/27/2017 Are You Blind Or Do You Have Difficulty Seeing? No Information not available 05/31/2021 Is Blood Transfusion Acceptable In An Emergency? Yes Information not available 05/31/2021 What Is Your Level Of Caffeine Consumption? Occasional Information not available 06/04/2022 How Much Tobacco Do You Chew? None Information not available 07/18/2023 Are You Deaf Or Do You Have Serious Difficulty Hearing? No Information not available 05/31/2021 What Type Of Diet Are You Following? REGULAR Information not available 11/11/2013 Which Of Your Hands Is Dominant? Right [...] Single 0 Children Information not available 08/01/2022 Has Tobacco Cessation Counseling Been Provided? No Information not available 08/01/2022 How Many Days In The Past Year Have You Consumed 4 Or More Drinks? 0 Information not available 08/01/2022 Sex: Female Functional Status Question Answer Note LastModified by Organizat ion Details LastModified Time Do you use any illicit or recreational drugs? No Information not available 05/31/2021 Do you or have you ever used any other forms of tobacco or nicotine? No Information not available 05/31/2021 What is your level of alcohol consumption? Occasional [email or web address] Information not available 11/20/2017 Do you or have you ever used smokeless tobacco? Never used smokeless tobacco Information not available 07/18/2023 Are you currently employed? Yes Information not available 05/31/2021 Are you able to care for yourself? 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 Never used electronic cigarettes Information not available 07/18/2023 What is your exercise level? Occasional Information not available 11/15/2014 Mental Status Question Answer Note LastModified by Organization D etails LastModified Time Do you feel stressed (tense, restless, nervous, or anxious, or unable to sleep at night)? [id number] Information not available 05/31/2021 Family History Relationship Description Onset Age of [...] Time meningococcal MCV4P 5 completed Not Available [facility] 05/01/2019 02:10:03 Tdap 8 completed Not Available [facility] 05/01/2019 02:14:01 varicella 1 completed YADIEL Thomas [facility] 08/01/2022 09:48:45 varicella 2 completed YADIEL Thomas, [facility] 08/01/2022 09:48:45 meningococcal ACWY, unspecified formulation 8 completed YADIEL Thomas [facility]. 08/01/2022 09:49:02 MMR 8 completed Bijal jeffery [facility] 11/21/2017 11:57:53 MMR 2 completed Bijal jeffery [facility] 11/21/2017 11:58:02 polio, unspecified formulation 7 completed YADIEL Thomas [facility] 08/01/2022 09:49:03 polio, unspecified formulation 7 completed Sarahi Ryjustyna NCMA null, [facility] 08/01/2022 09:49:03 polio, unspecified formulation 7 completed Sarahi Ryjustyna NCMA null, [facility] 08/01/2022 09:49:03 polio, unspecified formulation 2 completed Sarahidevi Peace NCMA null, [facility] 08/01/2022 09:49:03 Tdap 8 completed Bijal Harris null, [facility] 11/21/2017 12:00:44 COVID-19, mRNA, LNP-S, PF, 30 mcg/0.3 mL dose 0 completed Sarahi Ryel, NCMA null, [facility] 08/01/2022 09:48:45 COVID-19, mRNA, LNP-S, PF, 30 mcg/0.3 mL dose 1 completed Sarahi Ryel, NCMA null, [facility] 08/01/2022 09:48:45 COVID-19, mRNA, LNP-S, PF, 30 mcg/0.3 mL dose 1 completed Sarahi Ryjustyna NCMA null, [facility] 08/01/2022 09:48:45 Influenza, MDCK, quadrivalent, PF 8 completed Sarahidevi Peace NCMA null, [facility] 08/01/2022 09:48:44 Influenza, MDCK, quadrivalent, PF 7 completed Sarahi Ryel NCMA null, [facility] 08/01/2022 09:48:45 OPV 7 completed Sarahi Ryel NCMA null, [facility] 08/01/2022 09:48:45 OPV 7 completed Sarahi Ryjustyna NCMA null, [facility] 08/01/2022 09:48:45 OPV 2 completed Sarahi Ryel, NCMA null, [facility] 08/01/2022 09:48:45 OPV 7 completed Sarahi Ryel, NCMA null, [facility] 08/01/2022 09:48:45 HPV, quadrivalent 9 completed Sarahi Ryel, NCMA null, [facility] 08/01/2022 09:48:45 HPV, quadrivalent 9 completed Sarahi Ryel, NCMA null, [facility] 08/01/2022 09:48:45 HPV, quadrivalent 8 completed Sarahi Ryel, NCMA null, [facility] 08/01/2022 09:48:45 Hep B, adult 7 completed Sarahi Ryel, NCMA null, [facility] 08/01/2022 09:48:45 Hep B, adult 7 completed Sarahi Ryel, NCMA null, [facility] 08/01/2022 09:48:45 Hep B, adult 7 completed Sarahi Ryel, NCMA null, [facility] 08/01/2022 09:48:45 Hep B, adult 7 completed Sarahi Ryel, NCMA null, [facility] 08/01/2022 09:48:45 Hep B, adult 7 completed Sarahi Ryel, NCMA null, [facility] 08/01/2022 09:48:45 Hep B, adult 6 completed Sarahi Ryel, NCMA null, [facility] 08/01/2022 09:48:45 Hep A, adult 8 completed Sarahi Ryel, NCMA null, [facility] 08/01/2022 09:48:45 Hib (PRP-OMP) 8 completed Sarahi Ryel, NCMA null, [facility] 08/01/2022 09:48:45 Hib (PRP-OMP) 7 completed Sarahi Ryel, NCMA null, [facility] 08/01/2022 09:48:45 Meningococcal MCV4O 8 completed Sarahi Ryjustyna, NCMA null, [facility] 08/01/2022 09:48:45 DTaP, 5 pertussis antigens 2 completed Sarahi Ryjustyna NCMA null, [facility] 08/01/2022 09:48:45 DTaP, 5 pertussis antigens 7 completed Sarahi Ryel, NCMA null, [facility] 08/01/2022 09:48:45 DTaP, 5 pertussis antigens 8 completed Sarahi Ryjustyna NCMA null, [facility] 08/01/2022 09:48:45 DTaP-Hib 7 completed Sarahidevi Peace NCMA null, [facility] 08/01/2022 09:48:45 DTaP-Hib 7 completed Sarahi Ryjustyna NCMA null, [facility] 08/01/2022 09:48:45 Influenza, split virus, quadrivalent, PF 1 completed Sarahidevi Peace NCMA null, [facility] 08/01/2022 09:48:45 Influenza, split virus, quadrivalent, PF 0 completed Sarahi Ryjustyna NCMA null, [facility] 08/01/2022 09:48:45 Influenza, split virus, quadrivalent, PF 2 completed Sarahi Ryel NCMA null, [facility] 08/01/2022 09:48:45 Influenza, split virus, quadrivalent, PF 9 completed Sarahi Ryjustyna NCMA null, [facility] 08/01/2022 09:48:45 Past Encounters Encounter ID Performer Location Encounter Start Date Encounter Closed Date Diagnosis/Indication Diagnosis SNOMED-CT Code Diagnosis ICD10 Code Diagnosis Note [id number] Stephanie Melendez MD [facility] office [address] [place] [phone] 11/11/2013 14:05:50 11/11/2013 15:26:31 Well child [id number] Alopecia [id number] Scoliosis of lumbar spine 343070587 [id number] Vee Lopez MD [facility] office [address] [place] [phone] 02/16/2014 10:51:53 02/16/2014 13:31:46 Disorder of knee 486183054 Discussed with the patietn she has NO [...] see it hopefully will have answers. Alopecia [id number] Follow ed by [facility],will add FSH,LH today to check for PCOS. [id number] Stephanie Melendez MD [facility] office [address] [place] [phone] 03/01/2014 12:56:14 03/01/2014 15:27:49 Disorder of knee 490848008 Given patient's elevated ESR and history of alopecia, recommend follow-up with rheumatolo gist. Serum thyr oid stimulating hormone level outside reference range 020120559 Pt's low TSH in the context of normal values for T3 and T4 could indicate subclinica l hyperthyro idism or Solange' s hyperthroi dism. Pt instructed to f/u with TSH and T4 in March. [id number] Stephanie Melendez MD [facility] office [address] [place] [phone] 11/15/2014 08:04:16 11/15/2014 09:33:45 Well child [id number] Alopecia areata 31009363 Requires a meningitis vaccination 947411823 [id number] Stephanie Melendez MD [employer] [address] [place] [phone] 11/20/2017 15:42:29 11/21/2017 12:09:27 Adult health examination 593871569 Z00.00 Irregular periods 651331 07 N92.6 Venereal d isease screening 032444763 Z11.3 Body mass index 30+ - obesity 606733226 Z68.39 Scoliosis deformity of spine 746666901 M41.9 Neck pain 06237337 M54.2 doing US all day [id number] MD jocelyn [facility] [address] [phone] 11/27/2017 08:25:33 11/27/2017 09:20:09 Gynecologic examination 02258380 Z01.411 Irregular intermenstrual bleeding 66525205 N92.1 I reviewed possible etiologies of irregular menstrual bleeding, advised blood work as ordered and pelvic ultrasound and follow up with me after all results available Body mass index 30+ - obesity 671697790 Z68.33 advised weight loss [id number] MD jocelyn Cabral [facility] associate [address] [phone] 12/04/2017 08:49:57 12/04/2017 10:31:32 Irregular periods 61307580 N92.6 All Agnes's blood tests and ultrasound are normal. As to this point, I don't see evidence of PCOS in blood work or ultrasound . Other endocrinol ogical possibilit ies are rule out at this time. I reviewed medical options to regulate her cycle such as cyclical progestin or combined estrogen progestin pills. She is not in a [facility] ip and does not need contracept ion at this time. She does not want to start on any medication . I then advised her to keep track of her menstrual diary and try to loose weight. I will follow up with her in 6 months. She is advised to call with any concern. Body mass index 30+ - obesity 146631057 Z68.34 advised weight loss [id number] MD ANNA [facility] [address] [place] [phone] 03/30/2018 16:04:32 03/30/2018 16:36:25 Upper respiratory infection 29015225 J06.9 patient is a recovering from viral [...] week Fluid leve l behind tympanic membrane 828077040 H65.20 see above. Goiter 6227386 E04.9 slightly enlarged thyroid, I did not feel nodules on exam. 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 I placed referral for thyroid ultrasound to clarify. Asked patient to call if she has difficulty scheduling [id number] MD anna [facility] [address] [place] [phone] 06/29/2018 10:42:25 06/29/2018 13:04:16 Contraception care management [id number] Z30.9 I discussed levonorges trel vs. copper IUDs vs. nexplanon with risks, benefits, efficacy, side effects of each options in detail. She wants to get Kyleena IUD. Timing of insertion and benefits of cytotec for cervical dilatation as well as side effects reviewed in detail. All question answer. Handout provided. Body mass index 30+ - obesity 900544184 Z68.34 advised weight loss [id number] MD ANNA Alvarez_[employer] intern[employer] [address] [place] [address] 01/04/2019 07:53:57 01/04/2019 08:43:55 Adult health examination 246470293 Z00.00 Body mass index 30+ - obesity 252814962 Z68.34 Adjustment disorder with anxious mood 28964296 F43.22 She has been going through a lot with her dad - terminal cancer. Her mother is out of work disabled due to health issues. She graduated from school and is working. 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 Screening for cardiovascular system disease 576668811 Z13.6 Venereal d isease screening 780468400 Z11.3 Screening for disorder 100390415 Z13.9 Thyroid nodule 267689412 E04.1 Acute sinusitis 95559407 J01.90 Pain in throat 523311563 R07.0 [id number] MD Jam [facility] [address] [place] [address] 06/25/2019 10:37:23 06/25/2019 11:21:30 Thyroid nodule 052168790 E04.1 Irregular periods 333459 07 N92.6 Venereal d isease screening 641810700 Z11.3 [id number] MD [facility]ocelyn [facility] [address] [place] [address] 05/31/2021 08:10:20 05/31/2021 08:55:57 Gynecologic examination 86552828 Z01.419 Normal breast and pelvic exam today. F/u in one year for repeat. Screening for malignant neoplasm of cervix 970448372 Z12.4 Pap due Skin tag [id number] L91.8 Removed per pt request, She tolerate proceudre well. Care instructio ns provided, will check pathology Body mass index 30+ - obesity 824927379 Z68.34 [id number] MD [facility] - [address] [place] [address] 06/04/2022 09:36:23 06/04/2022 10:06:16 Gynecologic examination 10448386 Z01.419 Normal breast and pelvic exam today. F/u in one year for repeat. Irregular periods 142104 07 N92.6 Will r/o thyroid dysfunctio n, hormone abnormalit ies, diabetes. Body mass index 30+ - obesity 836299199 Z68.34 [id number] MD Jam [facility] [address] [place] [address] 07/17/2021 14:41:58 07/17/2021 15:39:36 Adult health examination 349361498 Z00.00 Screening for disorder 096044996 Z13.0 Endocrine/ metabolic screening 583874231 Z13.29 Screening for cardiovascular system disease 116013856 Z13.6 Hyperlipid emia screening 250145462 Z13.220 Venereal d isease screening 822700629 Z11.3 Alopecia areata 40369433 L63.8 Gastroesop hageal reflux disease 054088452 K21.9 Dermal mycosis 15407628 B35.3 [id number] Stephanie Melendez MD [facility] [address] [place] [address] 08/01/2022 08:39:41 08/01/2022 09:17:30 Adult health examination 988827868 Z00.00 Screening for disorder 970612480 Z13.0 Endocrine/ metabolic screening 253291209 Z13.29 Screening for cardiovascular system disease 519221903 Z13.6 Hyperlipid emia screening 300132771 Z13.220 Vitamin D deficiency 347 95009 E55.0 Tinea pedis 8678140 B35. 3 Body mass index 30+ - obesity 204936163 Z68.36 Scoliosis deformity of spine 780336242 M41.9 [id number] Connor Campos MD [facility] - [address] [place] [address] 07/18/2023 15:00:48 07/18/2023 15:34:34 Gynecologic examination 10866685 Z01.419 Normal breast and pelvic exam today. F/u in one year for repeat. Irregular periods 277023 07 N92.6 Will get US as it was not done last year. Patient requesting to have US done at her work. Will send records over. Vaginal discharge 633964 006 N89.8 Will r/o other causes of abnormal bleeding. [id number] Stephanie Melendez MD [facility] [address] [place] [address] 08/11/2023 08:14:59 08/11/2023 08:55:19 Adult health examination 430367447 Z00.00 Screening for disorder 609370031 Z13.0 Endocrine/ metabolic screening 487996347 Z13.29 Screening for cardiovascular system disease 012281024 Z13.6 Hyperlipid emia screening 766437333 Z13.220 Body mass index 30+ - obesity 664221555 Z68.38 Scoliosis deformity of spine 476832525 M41.85 Tendinitis of right hand 8941635694 0497469 M67.014 [id number] MD ANNA [facility]ral[facility] - [address] [place] [address] 08/14/2023 07:51:42 08/14/2023 10:25:28 Polycystic ovary syndrome 349539242 E28.2 I discussed with the patient that [...] on what she decides for management . [id number] MD ANNA Evans_[employer] intern[employer] [address] [place] [address] 08/06/2024 14:51:53 08/06/2024 16:00:28 Spasm of back muscles 762420681 M62.830 Health Concerns Section Related Observation LastModified by Organization Detai ls LastModified Time None Recorded Concern Status LastModified by Organization Details LastModified Time None Recorded Advance Directives Directive N: Payers Encounter Date Sequence Insurance Name Policy Number Policy Lewis Covered Member ID Lewis Member ID Guarantor Name 08/01/2022 1 [employer] [id number] Agnes Lee [id number] Augie Lee 07/18/2023 1 [employer] [id number] Agnes Lee [id number] Augie Lee 08/11/2023 1 [employer] [id number] Agnes Lee [id number] Augie Lee 08/14/2023 1 [employer] [id number] Agnes Lee [id number] Augie Lee 08/06/2024 1 [employer] [id number] Agnes Lee [id number] 847 Augie Lee Notes Date Note Type Note Provider Name and Address Organization Details Recorded Time 08/01/2022 text/html Pt is here for h er physical exam.PAP 05/31/[address] Campos. ROS:Seen by HEAVY MACHINERY ASSEMBLER for irregular [id number] and TSH NL; other hormone tests were NLAlopecia - stable. Taking minoxidil foot rash. Not itchy. In between the toes. 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 Problem list:Eczema, alopecia. Clobetasol cream improves the eczema. New night custodian at [facility], Dr. Smith. On minoxidil. She has followed with night custodian from [facility] for years, Dr. Kate Rojas. MED: topical clobetasol cream. US thyroid: several small nodules, benign, 04/2018 Vit D def. Scoliosis. Stephanie Melendez MD [address] [place] [address], [phone], [facility] 08/01/2022 09:57:14 07/18/2023 text/html Annual GYNReport ed [...] Psychological symptoms:No depression Here today for annual [employer] MACHINERY ASSEMBLER exam.PMH: Vit D deficiency, thyroid nodules, alopecia. She is on Minoxidil for alopecia.No longer taking vitamin D daily. 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 Single. Last pap 2021 nl Contraception: AbstinenceCycles are 5 weeks usually, irregular with random spotting.Had labs last year to r/o PCOS or other causes of cycle irregular and all were normal.No US done. Patient agreeable to US. Fco Mondragon CNP [address] [place], [address], [facility] 07/20/2023 13:49:57 08/11/2023 text/html Pt is here for h er physical exam.PAP 05/31/21 by Fco ROS:Seen by HEAVY MACHINERY ASSEMBLER - recent US showed polycystic ovaries.a1c was NL. Pt needs to upload in the system. She has to go to [place]. C/O R hand pain at palm and fingers.C/O L lumbar pain under the deformity of scoliosis. 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 Problem list:Eczema. Clobetasol cream improves the eczema. New night custodian at [facility], Dr. Smith. On minoxidil. She has followed with night custodian from [facility] for years, Dr. Kate Rojas. MED: topical clobetasol cream.Alopecia - stable on minoxidilUS thyroid: several small nodules, benign, 04/2018. Vit D def.Scoliosis. Wore a brace when younger. Stephanie Melendez MD [address] [place] [address], [phone], [facility] 08/11/2023 09:05:42 08/14/2023 text/html Agnes noguera s [...] for alopecia Current regimen: NoneDesires : NoFor uatsdin reasons, patient cannot take any control or anything that will control or manipulate ovulation. Denies abdominal pain, bloating, acne, unusual hair growth. This is a Telehealth visit, via modality {{ZOOM FaceTime Teleph one [facility].md teams#}} .Patient understands the risks, benefits and limitations of this type of visit.Patient consents for this visit.This type of visit is being utilized as it was deemed higher risk for patient to come to office given the current risk of COVID-19/coronavirus infection. During this encounter the patient is located in their home. At the time of this encounter the Physician is in {{[facility]}} located at ___[address] [place] [address] . Visit Began: {{am pm 0800am#}}Visit Ended: {{am pm 0817am#}} 50% or greater of the time was spent on counselling and coordination of care.The following people were with the patient at time of this Telehealth visit: {{Patient only* Patient and}} . Fco Mondragon CNP [address] [place] [address], [phone], [facility]. 08/14/2023 08:45:09 08/06/2024 text/html mid to high left high to mid back pain started n fridayis an ultrasound techpt for dr melvin minoxidil and spironolactone from derm for hair lossmuscle is sore left of the inter scapular lineno injury rash Halie Ferrera MD [address] [place] [address], [phone], [facility] 08/06/2024 16:04:06 OBGyn Episode No OBEpisode recorded.
--- OUTSIDE RECORDS SUMMARY | 2024-08-26 14:47 | XMS_ITS | Data Portability ---
Author Organization BELIA Gamez [facility], HEALTH SERVICES Address [address] [address] Assessment Encounter Date Assessment Date Assessment LastModified by Organization Details LastModified Time 05/26/2017 05/26/2017 A: Travel to [place] - Medications and Counseling P: Vivotif 2 [...] stop. Given Up-to-Date hand-out on travel to [place]. Counseled on food born illnesses and food and personal safety. RTC, as needed, PRN. [email or web address] Not available 05/26/2017 15:52:09 Plan of Treatment Reminders Order Date Submit Date Provider Last Modified By Organization Details Last Modified Time Details Appointments None recorded. Lab PPD (purified protein derivative) , skin test 2016 017 [email or web address] In-House Results, For Internal Use Only, Do Not Delete/merge, [id number] 7 10:12:57 Referral None recorded. Procedures None recorded. Surgeries None recorded. Imaging None recorded. Medication Orders Cipro 500 mg tablet 2017 018 lpeta [id number], [address], [place], [phone], 8 15:37:23 Tubersol 5 tub. unit/0.1 mL intradermal injection solution 2016 017 [email or web address] Not available 7 10:04:47 Patient TargetsNo targets recorded. Patient Instructions Encounter Date Encounter Id Patient Instructions Last Modified By Organization Details Last Modified Time 01/26/2018 [id number] Follow up as needed. [email or web address] Not available 01/26/2018 15:07:10 Reason for Referral None Reported. Results Created Date Observation Date Name Description Value Unit Range Abnormal Flag Note LastModifiedBy Organization Detail LastModifiedTime 03/12/20 17 03/12/2017 PPD (vicente fied prote in deriv ative ), skin test TB negati ve Not Available In-House Results For Internal Use Only, Do Not Delete/merge, [id number] 03/12/2017 16:52:56 02/19/20 17 02/19/2017 hepat itis B surfa ce Ab, quali tativ e, serum hepatitis B surface antibody ql REACTI VE non-re active abnormal Not Available [facility] [address], [place], [address], 02/19/2017 11:39:47 Result Notes None recorded. Procedures Surgical History Date Name Laterality Status Provider Name and Address Organization Details Recorded Time 8 Immunization completed Cheryl_Murphy Schedule [address] [address], [place], [address], [facility] 01/26/2018 15:06:17 8 Immunization completed Cheryl_Murphy Schedule [address] [facility], [place], [address], [facility] 06/05/2017 18:09:29 7 PPD Read completed Cheryl_Murphy Schedule [address] [place], [address], [facility] 03/12/2017 16:49:54 7 PPD Plant completed Cheryl_Murphy Schedule [address] [facility] [address], [place], [address], [facility] 03/10/2017 15:57:16 7 PPD Read completed Beverly [facility] 02/21/2017 15:33:32 7 PPD Plant completed Cheryl_Murphy Schedule [address] [facility], [place], [address], [facility] 02/19/2017 16:46:20 Imaging Results None [...] MDCK, quadrivalent, PF 02/18/2017 completed Not Available [facility] 0 02:27:08 Hep A, adult 06/05/2017 completed Cheryl_Murph y Schedule [address] [place] [address], [place], [address], [facility] 06/05/2017 18:13:26 Influenza, MDCK, quadrivalent, PF 01/26/2018 completed Not Available [facility] 0 02:27:08 Past Encounters Encounter ID Performer Location Encounter Start Date Encounter Closed Date Diagnosis/Indication Diagnosis SNOMED-CT Code Diagnosis ICD10 Code Diagnosis Note [id number] Lexy Welch [facility] [address] [facility] [place] [address] 02/18/2017 17:49:04 03/04/2017 13:20:12 Influenza vaccine needed 5418711807 106 Z23 [id number] Cheryl_Mur phy [facility] [address] [place] [address],[address] [place] [address] 02/19/2017 16:00:51 02/19/2017 17:54:44 Tuberculosis screening 500396054 Z11.1 21 yo pt presents for PPD plant. Pt completed TB Risk Questionna master and denied S & S of active TB. Pt aware to return in 48 to 72 hours for read. [id number] [address] 02/21/2017 15:29:43 02/21/2017 15:30:11 Tuberculosis screening 448679216 Z11.1 Negative Tuberculos is PPD [place] [id number] [facility] phy [address] [address] 03/10/2017 15:28:34 03/10/2017 19:01:45 Tuberculosis screening 767025006 Z11.1 21 yo pt presents for PPD plant. Pt completed TB Risk Questionna master and denied S & S of active TB. Pt aware to return in 48 to 72 hours for read. 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 Results negative with 0 induration , and were discussed with patient. [id number] Katya Bartholomew [address] [address] 05/26/2017 15:08:37 05/26/2017 16:26:31 Long-term drug therapy 417507189 Z79.899 Counseling 204922642 Z71 [id number] [address] 06/05/2017 09:29:24 06/05/2017 10:29:18 Infective hepatitis immunization 943184969 Z23 22 yo pt presents for Hepatitis A vaccine. Vaccine was delivered by [facility]. Pt reviewed VIS and denied contraindi cations. Vaccine administer ed without incident. Pt aware to return in 6 months for 2nd dose of series. [id number] [facility] [address] [address] 01/26/2018 12:47:50 01/26/2018 14:20:46 Influenza vaccine needed 4692848379 106 Z23 22 yo pt presents for influenza vaccine. RN reviewed VIS with pt, and pt denied contraindi cations. Consent signed and vaccine administer ed without incident. RN advised pt to contact [facility] with any questions or concerns. Pt verbalized [...] Member ID Guarantor Name 03/10/2017 2 [place] [facility] Irish Lee [id number] Irish Lee 03/12/2017 2 [place] [facility] Irish Lee [id number] Irish Lee 05/26/2017 2 [place] [facility] Irish Lee [id number] Irish Lee 06/05/2017 2 [place] Irish Lee [id number] Irish Ele 01/26/2018 1 [place] [id number] Irish Lee [id number] Irish Lee 01/26/2018 2 [place] Irish Lee [id number] Irish Lee Notes Date Note Type Note Provider Name and Address Organization Details Recorded Time 05/26/2017 text/html This 22 y.o. fem perry presents for travel vaccinations as she is traveling to [place] during June. Her routine immunizations are up to date. BELIA Baig [facility] 05/26/2017 16:01:41 OBGyn Episode No OBEpisode recorded.
--- OUTSIDE RECORDS SUMMARY | 2024-08-26 14:47 | XMS_ITS | Clinical Summary ---
Author Organization [facility] Address [address] [place], [place] [address] Phone Care Team Providers Care Manager Land Name Role Phone Lizbeth Ballard MD Primary [...] age to complete this topic Care Teams Manager Land Relationship Specialty Start Date End Date Lizbeth Ballard MD [address] [place] [address] [address] [place] [address] PCP - General 08/10/18
--- OUTSIDE RECORDS SUMMARY | 2024-08-26 14:48 | XMS_ITS | Referral Summary ---
Author Organization [facility] Address [address] [place] [address] Care Team Providers Care Disability Services Coordinator Name Role Phone Stephanie Calderón MD Primary Care Provider [phone] Allergies No known active allergies Medications cholecalciferol (VITAMIN D3) 2,000 unit capsule 2 Active ketoconazole-hy drocortisone 2-2.5 % cream 2 Active sn-mh-onrj-FA-C a carb-vit K (Women's Multivitamin) 18 mg-400 [...] Administration Dates Next Due Covid-19, Pfizer, mRNA, Long valent, PF 30 mcg/0.3 mL dose (for [...] 1 mL IM 02/07/2017,11/06/2016,10/02/2016,1996,1996,1996 Influenza, Injectable, Madin [place] Canine Kidney, Preservative Free, Quadrivalent 01/26/2018,02/18/2017 Influenza, [...] Description 01/04/2025 8:45 AM EDT Office Visit [facility] [address]th [address] [place] [phone] Busher Helper: Ashley Vargas MD [address] [place] [address] 03/29/2025 9:45 AM EST Office Visit [facility] 4th Floor [address] [place] [phone] Busher Helper: Ashley Vargas MD [address] [place] [address] Procedures * Due to [place] law, this organization might not be sharing negative HIV tests. Procedure Name Priority Date/Time Associated Diagnosis Comments COMPREHENSIVE METABOLIC PANEL Routine 06/05/2020 1:16 PM EST from Last 3 Months or Most Recently Relevant to Health Maintenance Results * Due to [place] law, this organization might not be sharing [...] Most Recently Relevant to Health Maintenance Insurance [employer] Care Teams Disability Services Coordinator Relationship Specialty Start Date End Date Stephanie Calderón MD PCP - General Family Medicine 07/23/21
== END 2024-08-26 14:38 | disposition home or self-care (01) ==
LOC: HO.HVS 14:04
PROVIDERS: PCP Family Medicine; Visit Provider Surgery Vascular Surgery
DX: I83.11 Varicose veins of right lower extremity with inflammation (principal)
CPT/HCPCS: 99214

== ENCOUNTER 2024-09-15 07:08 | Outpatient (REF) | payer OTHER, SELFPAY ==
--- OUTSIDE RECORDS SUMMARY | 2024-09-15 07:11 | XMS_ITS | Data Portability ---
Author Organization BELIA Gamez [facility], HEALTH SERVICES Address [address] [address] Assessment Encounter Date Assessment Date Assessment LastModified by Organization Details LastModified Time 05/26/2017 05/26/2017 A: Travel to [place] - Medications and Counseling P: Vivotif 2 [...] stop. Given Up-to-Date hand-out on travel to [place]. Counseled on food born illnesses and food and personal safety. RTC, as needed, PRN. lpeta Not available 05/26/2017 15:52:09 Plan of Treatment Reminders Order Date Submit Date Provider Last Modified By Organization Details Last Modified Time Details Appointments None recorded. Lab PPD (purified protein derivative) , skin test 2016 017 [email or web address] In-House Results, For Internal Use Only, Do Not Delete/merge, [id number] 7 10:12:57 Referral None recorded. Procedures None recorded. Surgeries None recorded. Imaging None recorded. Medication Orders Cipro 500 mg tablet 2017 018 lpeta [id number], [address] [place], [place], [id number], 8 15:37:23 Tubersol 5 tub. unit/0.1 mL intradermal injection solution 2016 017 [email or web address] Not available 7 10:04:47 Patient TargetsNo targets recorded. Patient Instructions Encounter Date Encounter Id Patient Instructions Last Modified By Organization Details Last Modified Time 01/26/2018 [id number] Follow up as needed. [email or web address] Not available 01/26/2018 15:07:10 Reason for Referral None Reported. Results Created Date Observation Date Name Description Value Unit Range Abnormal Flag Note LastModifiedBy Organization Detail LastModifiedTime 03/12/20 17 03/12/2017 PPD (vicente fied prote in deriv ative ), skin test TB negati ve Not Available In-House Results For Internal Use Only, Do Not Delete/merge, [id number] 03/12/2017 16:52:56 02/19/20 17 02/19/2017 hepat itis B surfa ce Ab, quali tativ e, serum hepatitis B surface antibody ql REACTI VE non-re active abnormal Not Available [facility] [address], [place], [address], 02/19/2017 11:39:47 Result Notes None recorded. Procedures Surgical History Date Name Laterality Status Provider Name and Address Organization Details Recorded Time 8 Immunization completed Cheryl_Murphy Schedule [address] [address], [place], [address], [facility] 01/26/2018 15:06:17 8 Immunization completed Cheryl_Murphy Schedule [address] [facility], [place], [address], [facility] 06/05/2017 18:09:29 7 PPD Read completed Cheryl_Murphy Schedule [address] [facility], [place], [address], [facility] 03/12/2017 16:49:54 7 PPD Plant completed Cheryl_Murphy Schedule 235 [facility] [address], [place], [address], [facility] 03/10/2017 15:57:16 7 PPD Read completed [facility] 02/21/2017 15:33:32 7 PPD Plant completed Cheryl_Murphy Schedule [address] [facility], [place], [address], [facility] 02/19/2017 16:46:20 Imaging Results [...] MDCK, quadrivalent, PF 02/18/2017 completed Not Available [facility] 0 02:27:08 Hep A, adult 06/05/2017 completed Cheryl_Murph y Schedule [address] [place] [address], [place], [address], [facility] 06/05/2017 18:13:26 Influenza, MDCK, quadrivalent, PF 01/26/2018 completed Not Available [facility] 0 02:27:08 Past Encounters Encounter ID Performer Location Encounter Start Date Encounter Closed Date Diagnosis/Indication Diagnosis SNOMED-CT Code Diagnosis ICD10 Code Diagnosis Note [id number] Lexy Welch [facility] [address] [facility] [place] [address] 02/18/2017 17:49:04 03/04/2017 13:20:12 Influenza vaccine needed 0160252075 106 Z23 [id number] Cheryl_Mur phy [facility] [address] [place] [address],[address] [place] [address] 02/19/2017 16:00:51 02/19/2017 17:54:44 Tuberculosis screening 160268176 Z11.1 21 yo pt presents for PPD plant. Pt completed TB Risk Questionna master and denied S & S of active TB. Pt aware to return in 48 to 72 hours for read. [id number] Beverly Segundo [address] [address] 02/21/2017 15:29:43 02/21/2017 15:30:11 Tuberculosis screening 790612641 Z11.1 Negative Tuberculos is PPD Read[place] [id number] [facility] phy [address] [address] 03/10/2017 15:28:34 03/10/2017 19:01:45 Tuberculosis screening 211602956 Z11.1 21 yo pt presents for PPD plant. Pt completed TB Risk Questionna master and denied S & S of active TB. Pt aware to return in 48 to 72 hours for read. 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 Results negative with 0 induration , and were discussed with patient. [id number] Katya Bartholomew [address] [address] 05/26/2017 15:08:37 05/26/2017 16:26:31 Long-term drug therapy 697210991 Z79.899 Counseling 329923471 Z71 [id number] [address] 06/05/2017 09:29:24 06/05/2017 10:29:18 Infective hepatitis immunization 527301242 Z23 22 yo pt presents for Hepatitis A vaccine. Vaccine was delivered by [facility]. Pt reviewed VIS and denied contraindi cations. Vaccine administer ed without incident. Pt aware to return in 6 months for 2nd dose [facility] series. [id number] [facility] [address] [address] 01/26/2018 12:47:50 01/26/2018 14:20:46 Influenza vaccine needed 5894665335 106 Z23 22 yo pt presents for influenza vaccine. RN reviewed VIS with pt, and pt denied contraindi cations. Consent signed and vaccine administer ed without incident. RN advised pt to contact [facility] with any questions or concerns. Pt verbalized [...] Member ID Guarantor Name 03/10/2017 2 [place] [facility] [address] [address] Irish Lee [id number] Irish Lee 03/12/2017 2 [place] Irish Lee [id number] Irish Lee 05/26/2017 2 [place] Irish Lee [id number] Irish Lee 06/05/2017 2 [place] Irish Lee [id number] Irish Lee 01/26/2018 1 [place] [id number] Irish Lee [id number] Irish Lee 01/26/2018 2 [place] Irish Lee [id number] Irish Lee Notes Date Note Type Note Provider Name and Address Organization Details Recorded Time 05/26/2017 text/html This 22 y.o. fem perry presents for travel vaccinations as she is traveling to [place] during June. Her routine immunizations are up to date. BELIA Baig [facility] 05/26/2017 16:01:41 OBGyn Episode No OBEpisode recorded.
[2024-09-15 07:30] LABS: MANUAL DIFF FLAG NO
[2024-09-15 07:50] LABS: Basophils Percent Auto 0.7 % (0-2); Eosinophils Absolute Auto 0.1 X10*3/uL (0.0-0.4); Eosinophils Percent Auto 2.3 % (0-4); Hematocrit 39.9 % (37.0-47.0); Hemoglobin 13.7 g/dl (12.0-16.0); Imm Gran Abs Auto 0.01 X10*3/uL (0.00-0.03); Imm Gran Pct Auto 0.2 % (0.0-0.4); Lymphocytes Absolute Auto 2.1 X10*3/uL (1.2-4.9); Lymphocytes Percent Auto 34.5 % (20-40); Mean Corpuscular HGB Conc 34.3 g/dl (31.0-35.0); Mean Corpuscular Hemoglobin 29.5 pg (27.0-33.0); Mean Corpuscular Volume 85.8 fL (80.0-98.0); Mean Platelet Volume 9.4 fL (9.4-12.3); Monocytes Absolute Auto 0.4 X10*3/uL (0.1-1.2); Monocytes Percent Auto 7.2 % (2-11); Neutrophils Absolute Auto 3.4 x10*3/uL (2.0-8.3); Neutrophils Percent Auto 55.1 % (45-73); Platelet Count 290 X10*3/uL (160-400); Red Blood Count 4.65 X10*6/uL (4.20-5.50); Red Cell Distribution Width 11.9 % (11.0-16.0); White Blood Count 6.1 X10*3/uL (4.8-10.8)
[2024-09-15 07:56] LABS: Estimated Average Glucose 103 mg/dL; Hemoglobin A1c % 5.2 % (<6.0)
[2024-09-15 08:26] LABS: Anion Gap 12 (12-20)
[2024-09-15 08:30] LABS: Alanine Aminotransferase 22 U/L (0-31); Albumin Level 4.4 g/dL (3.5-5.0); Aspartate Amino Transferase 21 U/L (5-31); Bilirubin Total 0.7 mg/dL (0.0-1.0); Blood Urea Nitrogen 15 mg/dL (9-16); Calcium 9.6 mg/dL (8.4-10.2); Carbon Dioxide 27 mmol/L (22-29); Chloride 107 mmol/L (96-108); Cholesterol 126 mg/dL (<200); Estimated Glomerular Filt Rate > 60; Glucose Random 87 mg/dL (60-115); HDL Cholesterol 50 mg/dL (>40); LDL Cholesterol Calculated 65 mg/dL (<100); Potassium 4.3 mmol/L (3.3-5.1); Sodium 142 mmol/L (135-145); Total Protein 6.8 g/dL (6.5-8.0); Triglycerides 55 mg/dL (<150)
[2024-09-15 08:56] LABS: Thyroid Stimulating Hormone 0.76 uIU/mL (0.32-4.0)
[2024-09-15 13:07] LABS: Alkaline Phosphatase 73 U/L (39-117)
== END 2024-09-15 07:09 | disposition home or self-care (01) ==
LOC: HO.LAB 07:08
PROVIDERS: PCP Family Medicine; Visit Provider Family Medicine
DX: Z13.29 Encounter for screening for other suspected endocrine disorder (principal); Z13.0 Encounter for screening for diseases of the blood and blood-forming organs and certain disorders involving the immune mechanism; Z13.6 Encounter for screening for cardiovascular disorders; Z13.220 Encounter for screening for lipoid disorders; Z13.1 Encounter for screening for diabetes mellitus
CPT/HCPCS: 36415; 80053; 80061; 82306; 83036; 84443; 85025

== ENCOUNTER 2024-09-24 09:18 | Outpatient (AMB) | payer OTHER, SELFPAY ==
--- NOTE | 2024-09-24 09:22 | A.OFFVIS_ITS ---
Intake Visit Reasons: Right Micro Accompanied by: Self / Same As Patient Allergies No Known Allergies Allergy (Verified 09/24/24 09:23) PFSH Medical History Scoliosis Alopecia Family History Mother Varicose veins of bilateral lower extremities with other complications Social History Alcohol intake: current Alcohol intake frequency: holidays/special occasions only Patient Tobacco Use Status: Never used Tobacco Current occupational status: employed Current occupation: [employer] @ [employer] Office Procedures Vascular Office Procedure Details Details: Diagnosis: Right Leg varicose veins with inflammation Procedure: Right leg Microphlebectomy Anesthesia: Local Infiltration 10 cc, Tumescent: 0 cc. Varicose veins were marked in the standing position on the right leg and the patient was then placed in the supine position. The right lower extremity was prepared and draped to allow knee flexion in the sterile field. The patient had large superficial varicose veins with significant symptoms of pain. It was therefore determined to perform microphlebectomies of the clusters of varicose veins. The patient had bulging varicose veins which were previously marked in the standing position. A small stab incision was made longitudinally directly overlying the varicose vein in the calf and the varicose vein was grasped with a hemostat aided by a vein hook. It was then dissected as far proximally and distally as possible and avulsed. A total of 11 stab incisions were made and the procedure of stab phlebectomies was repeated 11 times. Hemostasis was checked and stab incision sites were closed with steri-strips and sterile dressing was given with gauze and krilex wrap followed by an mariella bandage. There were no complications and blood loss was minimal. Post-Op instructions were given and a follow-up appointment was recommended. 44625 - Phleb Veins, Extrem - up to 20 All charges added?: Procedure code (CPT) selection complete Assessment & Plan Assessment & Plan (1) Varicose veins of right lower extremity with inflammation: Comment: 01/11/2022 - right great saphenous vein Cyanoacralate ablation 09/24/2024 - right leg microphlebectomy Code(s): I83.11 - Varicose veins of right lower extremity with inflammation Category: Medical Plan: See op note Coding Level of Care Code Procedure Only Diagnoses Varicose veins of right lower extremity with inflammation I83.11 CPT Codes Details - Vascular 5: 07911 - Phleb Veins, Extrem - up to 20 ([id number])
--- OUTSIDE RECORDS SUMMARY | 2024-09-24 09:42 | XMS_ITS | Data Portability ---
Author Organization BELIA Gamez [facility], HEALTH SERVICES Address [address] [address] Assessment Encounter Date Assessment Date Assessment LastModified by Organization Details LastModified Time 05/26/2017 05/26/2017 A: Travel to [place] - Medications and Counseling P: Vivotif 2 [...] stop. Given Up-to-Date hand-out on travel to [place]. Counseled on food born illnesses and food and personal safety. RTC, as needed, PRN. lpeta Not available 05/26/2017 15:52:09 Plan of Treatment Reminders Order Date Submit Date Provider Last Modified By Organization Details Last Modified Time Details Appointments None recorded. Lab PPD (purified protein derivative) , skin test 2016 017 In-House Results, For Internal Use Only, Do Not Delete/merge, [id number] 7 10:12:57 Referral None recorded. Procedures None recorded. Surgeries None recorded. Imaging None recorded. Medication Orders Cipro 500 mg tablet 2017 018 lpeta [facility][id number], [address] [place], [place], [phone], 8 15:37:23 Tubersol 5 tub. unit/0.1 mL intradermal injection solution 2016 017 Not available 7 10:04:47 Patient TargetsNo targets recorded. Patient Instructions Encounter Date Encounter Id Patient Instructions Last Modified By Organization Details Last Modified Time 01/26/2018 [id number] Follow up as needed. [email or web address] Not available 01/26/2018 15:07:10 Reason for Referral None Reported. Results Created Date Observation Date Name Description Value Unit Range Abnormal Flag Note LastModifiedBy Organization Detail LastModifiedTime 03/12/20 17 03/12/2017 PPD (vicente fied prote in deriv ative ), skin test TB negati ve Not Available In-House Results For Internal Use Only, Do Not Delete/merge, [id number] 03/12/2017 16:52:56 02/19/20 17 02/19/2017 hepat itis B surfa ce Ab, quali tativ e, serum hepatitis B surface antibody ql REACTI VE non-re active abnormal Not Available [facility] [address], [place], [address], 02/19/2017 11:39:47 Result Notes None recorded. Procedures Surgical History Date Name Laterality Status Provider Name and Address Organization Details Recorded Time 8 Immunization completed Cheryl_Murphy Schedule [address] [address], [place], [address], [facility] 01/26/2018 15:06:17 8 Immunization completed Cheryl_Murphy Schedule [address] [facility], [place], [address], [facility] 06/05/2017 18:09:29 7 PPD Read completed Cheryl_Murphy Schedule [address] [facility] [place], [address], [facility] 03/12/2017 16:49:54 7 PPD Plant completed Cheryl_Murphy Schedule 235 [facility] [address], [place], [address], [facility] 03/10/2017 15:57:16 7 PPD Read completed Beverly Segundo [facility] 02/21/2017 15:33:32 7 PPD Plant completed Cheryl_Murphy Schedule [address] [facility],[address], [place], [address], [facility] 02/19/2017 16:46:20 Imaging Results None recorded. Procedure [...] MDCK, quadrivalent, PF 02/18/2017 completed Not Available [facility] 0 02:27:08 Hep A, adult 06/05/2017 completed Cheryl_Murph y Schedule [address] [place] [address], [place], [address], [facility] 06/05/2017 18:13:26 Influenza, MDCK, quadrivalent, PF 01/26/2018 completed Not Available [facility] 0 02:27:08 Past Encounters Encounter ID Performer Location Encounter Start Date Encounter Closed Date Diagnosis/Indication Diagnosis SNOMED-CT Code Diagnosis ICD10 Code Diagnosis Note [id number] Lexy Welch [facility] [address] [facility] [place] [address] 02/18/2017 17:49:04 03/04/2017 13:20:12 Influenza vaccine needed [id number] 106 Z23 [id number] Cheryl_Mur phy [facility] HEALTH SERVICES [address] [place] [address],[address] [place] [address] 02/19/2017 16:00:51 02/19/2017 17:54:44 Tuberculosis screening 224987530 Z11.1 21 yo pt presents for PPD plant. Pt completed TB Risk Questionna master and denied S & S of active TB. Pt aware to return in 48 to 72 hours for read. [id number] Beverly Segundo [address] [address] 02/21/2017 15:29:43 02/21/2017 15:30:11 Tuberculosis screening 869425310 Z11.1 Negative Tuberculos is PPD Read[place] [id number] [facility] phy [address] [address] 03/10/2017 15:28:34 03/10/2017 19:01:45 Tuberculosis screening 862224027 Z11.1 21 yo pt presents for PPD plant. Pt completed TB Risk Questionna master and denied S & S of active TB. Pt aware to return in 48 to 72 hours for read. 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 Results negative with 0 induration , and were discussed with patient. [id number] Katya Bartholomew [address] [address] 05/26/2017 15:08:37 05/26/2017 16:26:31 Long-term drug therapy 872382184 Z79.899 Counseling 541689691 Z71 [id number] [address] 06/05/2017 09:29:24 06/05/2017 10:29:18 Infective hepatitis immunization 900335968 Z23 22 yo pt presents for Hepatitis A vaccine. Vaccine was delivered by [facility]. Pt reviewed VIS and denied contraindi cations. Vaccine administer ed without incident. Pt aware to return in 6 months for 2nd dose of series. [id number] [facility] [address] [address] 01/26/2018 12:47:50 01/26/2018 14:20:46 Influenza vaccine needed 4524659719 106 Z23 22 yo pt presents for influenza vaccine. RN reviewed VIS with pt, and pt denied contraindi cations. Consent signed and vaccine administer ed without incident. RN advised pt to contact [facility] with any questions or concerns. Pt verbalized understand ing and agreed to plan. Patient given copy of consent form for personal records. Health Concerns Section Related Observation LastModified by Organization Detai ls LastModified Time None Recorded Concern Status LastModified by Organization Details LastModified Time None Recorded Advance Directives Directive None Recorded Payers Insurance Date Sequence Insurance Name Policy Number Policy Lewis Covered Member ID Lewis Member ID Guarantor Name 02/18/2017 1 [facility] [place] ([place]) Irish Lee [id number] Irish Lee 03/10/2017 1 [facility] [id number] [place] [id number] Irish Lee 03/09/2018 1 [place] [id number] Irish Lee [id number] Irish Lee 03/09/2018 2 [place] [facility] Irish Lee [id number] Irish Lee Notes Date Note Type Note Provider Name and Address Organization Details Recorded Time 05/26/2017 text/html This 22 y.o. fem perry presents for travel vaccinations as she is traveling to [place] during June. Her routine immunizations are up to date. BELIA Baig [facility] 05/26/2017 16:01:41 OBGyn Episode No OBEpisode recorded.
== END 2024-09-24 10:47 | disposition home or self-care (01) ==
LOC: HO.HVS 09:19
PROVIDERS: PCP Family Medicine; Visit Provider Surgery Vascular Surgery
DX: I83.11 Varicose veins of right lower extremity with inflammation (principal)
CPT/HCPCS: 37765

== ENCOUNTER → 2024-09-24 09:18 | Outpatient (BNVA) | payer OTHER, SELFPAY | PROVIDERS: PCP Family Medicine; Visit Provider Surgery Vascular Surgery | DX: I83.11 Varicose veins of right lower extremity with inflammation (principal) | CPT/HCPCS: 37765; J2003 ==

== ENCOUNTER 2025-02-07 16:29 | Outpatient (REF) | payer OTHER, SELFPAY ==
[2025-02-08 04:24] LABS: Bacterial Vaginosis PCR NEGATIVE (Negative); Candida Group PCR NOT DETECTED (Not Detect); Candida glab krusei PCR NOT DETECTED (Not Detect); Trichomonas vaginalis PCR NOT DETECTED (Not Detect)
== END 2025-02-07 16:30 | disposition home or self-care (01) ==
LOC: HO.LNP 16:29
PROVIDERS: Family Medicine; PCP Family Medicine
DX: N89.8 Other specified noninflammatory disorders of vagina (principal); Z32.02 Encounter for pregnancy test, result negative; Z20.2 Contact with and (suspected) exposure to infections with a predominantly sexual mode of transmission
CPT/HCPCS: 81515

== ENCOUNTER 2025-02-07 16:29 | Outpatient (AMB) | payer OTHER, SELFPAY ==
[2025-02-07 16:29] VITALS: BP 112/74; PULSE 72; TEMP 36.8; O2SAT 99; BMI 31.5
--- NOTE | 2025-02-07 16:29 | AM.OFFWIN_ITS ---
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 Patient Tobacco Use Status: Never used Tobacco Allergies No Known Allergies Allergy (Verified 02/07/25 16:41) Do you need a note to return to daycare/school/sports/work: No HPI HPI Comments History of Present Illness Details Patient was informed and verbally consented to the use of an ambient scribe for clinic note documentation during the visit. History of Present Illness The patient is a 29-year-old female presenting with vaginal discharge - Patient reports that she was treated f or UTI 2 weeks ago in [place] with Bactrim - UTI symptoms resolved, however patient reports irritation, itchiness, vaginal discharge, and vulvar swelling last Friday - Symptoms include clumpy, tannish vagin al discharge described over the past two days. - The patient attempted [id number] treatment with a product similar to Monistat, which did not initially alleviate symptoms. - The patient denies current urinary sym ptoms such as burning, frequency, urgency, or hematuria following treatment. - Patient denies any concern for STDs - Unsure about potential . LMP January 28 Review of Systems Constitutional: Negative for fevers Genitourinary: Negative for difficulty urinating, dysuria, urinary frequency, urinary urgency, genital sores. Positive for vaginal discharge and vaginal irritation. Negative for abnormal vaginal bleeding Physical Exam General Appearance: Normal appearance, well developed. No acute distress Head: Normocephalic, atraumatic Pulmonary: No respiratory distress. Speaking in full sentences Musculoskeletal: Moving all extremities spontaneously and against gravity Genitourinary: Patient consented for exam. Declined senior search marketing analyst in room. No significant vulvar erythema or swelling noted. White vaginal discharge noted along the introitus. Mental Status: Alert and Oriented x 3 Psychiatric: Normal mood. Normal affect. 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 @ [employer] Physical Exam Vital Signs: Last Vital Signs Temp 98.2 F 02/07/25 16:29 Pulse 72 02/07/25 16:29 BP 112/74 02/07/25 16:29 Pulse Ox 99 02/07/25 16:29 Oxygen Delivery Method Room Air 02/07/25 16:29 BMI result Body Mass Index 31.5 Results AMB Test Urine AMB Test Urine Negative Last Edit by Galo Eddy MA on 02/07 16:58 Results Reviewed Results Reviewed: Laboratory Last Values Tst Clinic Negative 02/07/25 16:49 Assessment & Plan Assessment & Plan (1) Vaginal discharge: Code(s): N89.8 - Other specified noninflammatory disorders of vagina Plan Assessment and Plan - test in the office negative - No current urinary symptoms - Patient declines concern for STD/STD testing - Based on the symptoms of itching and clumpy discharge, yeast or BV was considered - Vaginal swabs have been collected to aid in diagnosis. The patient was educated on the condition and advised medications will be considered pending test results. Orders: Orders AMB HCG Urine Test Today N89.8 - Other specified noninflammatory diso rders of vagina Bacterial Vaginosis Panel Today N89.8 - Other specified noninflammatory disorders of vagina Coding Level of Care Code Est Pt Level 3 (95491) Diagnoses Vaginal discharge N89.8
--- OUTSIDE RECORDS SUMMARY | 2025-02-07 19:15 | XMS_ITS | Data Portability ---
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 Lab CBC w/ auto diff 2024 025 [email or web address] [facility], [address] , [place], [address], 14:54:46 lipid panel, serum 2024 025 [email or web address] [facility], [address] , [place], [address], 5 14:54:46 HbA1c (hemogl obin A1c), blood 2024 025 [email or web address] [facility], [address] , [place], [address], 5 14:54:46 TSH, ultra-s ensitiv e, serum 2024 025 [email or web address] [facility], [address], [place], [address], 5 14:55:41 vitamin D, 25-hydr oxy, total, serum 2024 025 [email or web address] [facility], [address] , [place], [address], 5 14:54:46 lh + FSH, serum 2024 025 [email or web address] [facility], [address] , [place], [address], 5 15:40:11 compreh ensive metabol ic 1998 panel, serum or plasma 2024 025 [email or web address] [facility], [address] , [place], [address], 5 14:54:47 CBC w/ auto diff 2023 024 ALLY [facility], [address] [place] [address], [address], 4 11:27:20 lipid panel, serum 2023 024 ALLY [facility], [address] [place] [address], [address], 4 11:27:20 vitamin D, 25-hydr oxy, total, serum 2023 024 ALLY [facility], [address] [place] [address], [address], 4 11:27:20 TSH, ultra-s ensitiv e, serum 2023 024 [email or web address] [facility], [address] [place], [address], 4 15:47:29 CMP, serum or plasma 2023 024 ALLY [facility], [address] [facility], [address], [place], [address], 4 11:27:20 vaginal pathoge ns panel, VIKTORIA+pro be, vaginal fluid 2023 024 ALLY [facility], [address], [place], [address], 4 20:06:45 HbA1c (hemogl obin A1c), blood 2023 024 ALLY [facility], [address], [place], [address], 4 08:53:46 Referral orthope dic spine surgeon referra l 2024 025 will [facility], [address] [place], [address], 5 10:53:[address] referra l 2023 024 [facility], [address] [place], [address], 5 10:25:53 Procedures None recorde d. Surgeries None recorde d. Imaging XR, lumbar spine 2024 025 [facility] (Imaging), [address] [place] [address], [address], 5 09:30:58 XR, thoraci c spine, 2 view 2024 025 [facility] ([facility]), [address] [place] [address], [address], 5 08:34:39 XR, spine, scolios is series - please measure if possibl e 2023 024 [facility] (Imaging), [address] [place] [address], [address], 4 06:41:35 US, pelvis - complet e pelvic US 2023 024 [email or web address] [facility] (Imaging), [address] [place], [address], 4 08:31:40 Medication Orders cyclobe nzaprin e 5 mg tablet 2024 025 [email or web address] #[id number], [address] [place], [address], 5 16:52:47 naproxe n 500 mg tablet 2024 025 [email or web address] #[id number], [address] [place], [address], 5 16:52:47 Patient TargetsNo targets recorded. Patient Instructions Encounter Date Encounter Id Patient Instructions Last Modified By Organization Details Last Modified Time 09/13/2024 [id number] body mass index: care instructions Not available 09/13/2024 15:02:46 learning about healthy weight Not available 09/13/2024 15:02:46 Reason for Referral Occupational Therapist Refer ral for Tendinitis of right hand Referring Physician: Stephanie [facility], Encounter Date: 08/11/2023 Orthopedic Spine Surgeon Ref erral for Idiopathic scoliosis of lumbar spine Referring Physician: Stephanie [facility], Encounter Date: 09/13/2024 Results Created Date Observation Date Name Description Value Unit Range Abnormal Flag Note LastModifiedBy Organization Detail LastModifiedTime 07/18/1907/20/2023 DEUCE Gutierrez VAGIN ITIS PLUS (VG+) atopobium vaginae Low - 0 score Not Available [facility] ([facility]) [address] [facility], [place], [address], 07/21/2023 20:06:45 07/18/19 24 07/20/2023 MARYA B VAGIN ITIS PLUS (VG+) bvab 2 Low - 0 score Not Available [facility] ([facility]) [address] [place], [address], 07/21/2023 20:06:45 07/18/19 24 07/20/2023 NUA B VAGIN ITIS PLUS (VG+) megasphaera 1 [...] Drug Admin istra tion. Not Available [facility] ([facility]) [address] [place], [address], 07/21/2023 20:06:45 07/18/19 24 07/20/2023 NUA B VAGIN ITIS PLUS (VG+) gavin albicans, VIKTORIA Negati ve negati ve Not Available [facility] ([facility]) [address] [place], [address], 07/21/2023 20:06:45 07/18/19 24 07/20/2023 NUA B VAGIN ITIS PLUS (VG+) gavin glabrata, VIKTORIA Negati ve negati ve Not Available [facility] ([facility]) [address] [place], [address], 07/21/2023 20:06:45 07/18/19 24 07/21/2023 NUA B VAGIN ITIS PLUS (VG+) trich vag by VIKTORIA Negati ve negati ve Not Available [facility] ([facility]) [address] [facility], [place], [address], 07/21/2023 20:06:45 07/18/19 24 07/21/2023 NUSWA B VAGIN ITIS PLUS (VG+) chlamydia trachomatis, VIKTORIA Negati ve negati ve Not Available [facility] ([facility]) [address] [facility], [place], [address], 07/21/2023 20:06:45 07/18/19 24 07/21/2023 NUA B VAGIN ITIS PLUS (VG+) neisseria gonorrhoeae, VIKTORIA Negati ve negati ve Not Available [facility] ([facility]) [address] [facility], [place], [address], 07/21/2023 20:06:45 08/10/19 24 08/06/2023 US, pelvi s, trans abdom inal + trans vagin al No observ ation record ed. [email or web address] [address], [address], 08/26/2023 08:30:52 08/13/19 24 08/12/2023 XR, spine , scoli osis serie s No observ ation record ed. [email or web address] [address], [address], 09/13/2024 14:52:00 08/14/19 25 08/11/2024 XR, thora cic spine , 2 view No observ ation record ed. [email or web address] [address], [address], 09/13/2024 14:53:21 08/14/19 25 08/11/2024 XR, lumba r spine No observ ation record ed. [email or web address] [id number] [place], [address], 09/11/2024 10:41:12 Result Notes None recorded. Problems Name Problem SNOMED Code Status Onset Date Resolution Date Notes Provider Name and Address Organization Details Recorded Time Alopecia areata 60981184 Active pt started at age 5 Stephanie Melendez MD [address] [place] [address], [address], [facility] 5 09:24:26 Alopecia 50615626 Completed 11/15/2014 Stephanie Melendez MD [address] [place] [address], [address], [facility] 5 09:06:38 Scoliosis of lumbar spine 692874963 Active Stephanie Melendez MD [address] [place] [address], [address] [place] [address], [facility] 4 15:07:29 Disorder of knee 816501546 Active Stephanie Melendez MD [address] [place] [address], [address] [place] [address], [facility] 4 14:24:52 Serum thyroid stimulati ng hormone level outside reference range 003615124 Active Stephanie Melendez MD [address] [place] [address], [address], [facility] 4 14:24:52 Irregular periods 41280963 Active 2017 Stephanie Melendez MD [address] [place] [address], [address] [place] [address], [facility] 8 16:31:44 Venereal disease screening Active 2017 Stephanie Melendez MD [address] [place] [address], [address], [facility] 8 16:32:15 Body mass index 30+ - obesity 043014596 Active 2017 Stephanie Melendez MD [address] [place] [address], [address], [facility] 8 16:35:48 Scoliosis deformity of spine 329612276 Active 2017 Stephanie Melendez MD [address] [place] [address], [address], [facility] 8 16:35:49 Neck pain 92448066 Active 2017 Stephanie Melendez MD [address] [place] [address], [address], [facility] 8 16:35:51 Adjustmen t disorder with anxious mood 19327902 Active 2018 Stephanie Melendez MD [address] [place] [address], [address] [place] [address], [facility] 9 08:33:47 Acute sinusitis 58107045 Active 2018 Stephanie Melendez MD [address] [place] [address], [address] [place] [address], [facility] 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 2 20:41:38 Gastroeso phageal reflux disease 862592289 Active 2021 Stephanie Melendez MD [address] [place] [address], [address], [facility] 2 20:41:40 Polycysti c ovary syndrome 997666184 Active 2023 Stephanie Melendez MD [address] [place] [address], [address], [facility] 5 15:02:34 Spasm of back muscles 374875092 Active 2024 Halie Ferrera MD [address] [place] [address], [address], [facility] 5 15:46:57 Idiopathi c scoliosis of lumbar spine 933691690 Active 2024 Stephanie Melendez MD [address] [place] [address], [address], [facility] 5 15:02:32 Problem Notes None recorded. Procedures Surgical History Date Name Laterality Status Provider Name and Address Organization Details Recorded Time 5 No Previous Surgeries completed Kia Ceballos [facility] 09/13/2024 14:32:40 2 Skin Tag Removal w Lidocaine completed Fco Mondragon, [address] [place], [address], [facility] 05/31/2021 08:58:24 No Previous Surgeries completed Sarahi Peace [facility] 08/01/2022 08:43:38 varicose vein operation completed Sarahi Peace [facility] 08/01/2022 08:53:12 Imaging Results None recorded. [...] day by oral route for 90 days. 09/13 completed Not Available Not Available Not Available [facility] 07/13 completed Not Available Not Available Not Available Vitals Date Recorded Body height Body mass index (BMI) Body weight Heart rate Systolic And Diastolic Provider Name and Address Organization Details Last Updated DateTime 07/18/2023 168.91 cm 38.6 kg/m2 956730.5 1 g 78 /min 123/82 mm[Hg] Ludy Aguilar [place] - [facility]. 15:04:58 Date Recorded Body height Body mass index (BMI) Body weight Body temperature Heart rate Oxygen saturation Oxygen saturation in Arterial blood by Pulse oximetry Pain severity - 0-10 verbal numeric rating [Score] - Reported Systolic And Diastolic Provider Name and Address Organization Details Last Updated DateTime 168.91 cm 33.1 kg/m2 36556.2 1 g 98 [degF] 72 /min 98 % 98 % 5 106/69 mm[Hg] Alecia hansen [facility] 5 15:29:28 Date Recorded Body height Respiratory rate Body mass index (BMI) Body weight Body temperature Oxygen saturation Oxygen saturation in Arterial blood by Pulse oximetry Heart rate Pain severity - 0-10 verbal numeric rating [Score] - Reported Systolic And Diastolic Provider Name and Address Organization Details Last Updated DateTime 4 168.91 cm 18 /min 38 kg/m2 709532. 86 g 97.6 [degF] 97 % 97 % 72 /min 4 106/69 mm[Hg] Kia Acosta i [facility] 4 08:22:40 Date Recorded Body height Respiratory rate Body mass index (BMI) Body weight Body temperature Heart rate Oxygen saturation Oxygen saturation in Arterial blood by Pulse oximetry Pain severity - 0-10 verbal numeric rating [Score] - Reported Systolic And Diastolic Provider Name and Address Organization Details Last Updated DateTime 5 168.91 cm 18 /min 31.9 kg/m2 94819.3 5 g 97.7 [degF] 64 /min 98 % 98 % 2 95/59 mm[Hg] Kia Acosta i [facility] 5 14:34:17 Social History Question Answer Notes LastModified by Organizat ion Details LastModified Time Tobacco Smoking Status Never Smoker Antonia Neal [facility] 11/11/2013 14:40:12 Do You Have An Advance [...] 05/31/2021 Are you able to care for yourself independently? 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 Never used electronic cigarettes Information not available 07/18/2023 What is your exercise level? Occasional Information not available 11/15/2014 Mental Status Question Answer Note LastModified by Organization D etails LastModified Time Do you feel stressed (tense, restless, nervous, or anxious, or unable to sleep at night)? [id number] Information not available 05/31/2021 Family History Relationship Description Onset Age of this Age Resolved Age Notes LastModified by Organization Details LastModified Time Mother Vertigo [email or web address] Not available 14:13:34 Maternal Uncle Hearing disorder [email or web address] Not available 2024 14:13:34 Maternal Grandfather Alopecia areata [email or web address] Not available 2024 14:13:34 Father Malignant neoplasm of prostate [email or web address] Not available 2024 14:13:34 Maternal Aunt Hearing disorder [email or web address] Not available 2024 14:13:34 Maternal Grandmother Myocardial infarction Not available 11/15 [...] Time meningococcal MCV4P 5 completed Not Available [facility] 05/01/2019 02:10:03 Tdap 8 completed Not Available [facility] 05/01/2019 02:14:01 varicella 1 completed YADIEL Thomas null, [facility] 08/01/2022 09:48:45 varicella 2 completed RODRIGO ThomasMA null, [facility]. 08/01/2022 09:48:45 meningococcal ACWY, unspecified formulation 8 completed YADIEL Thomas null, [facility]. 08/01/2022 09:49:02 MMR 8 completed Bijal jeffery, [facility] 11/21/2017 11:57:53 MMR 2 completed Bijal Harris null, [facility] 11/21/2017 11:58:02 polio, unspecified formulation 7 completed RODRIGO ThomasMA null, [facility] 08/01/2022 09:49:03 polio, unspecified formulation 7 completed RODRIGO ThomasMA null, [facility] 08/01/2022 09:49:03 polio, unspecified formulation 7 completed RODRIGO ThomasMA null, [facility] 08/01/2022 09:49:03 polio, unspecified formulation 2 completed YADIEL Thomas null, [facility] 08/01/2022 09:49:03 Tdap 8 completed Bijal Harris null, [facility] 11/21/2017 12:00:44 COVID-19, mRNA, LNP-S, PF, 30 mcg/0.3 mL dose 0 completed Sarahi Peace NCMA null, [facility] 08/01/2022 09:48:45 COVID-19, mRNA, LNP-S, PF, 30 mcg/0.3 mL dose 1 completed RODRIGO ThomasMA null, [facility] 08/01/2022 09:48:45 COVID-19, mRNA, LNP-S, PF, 30 mcg/0.3 mL dose 1 completed RODRIGO ThomasMA null, [facility] 08/01/2022 09:48:45 Influenza, MDCK, quadrivalent, PF 8 completed Sarahi Peace NCMA null, [facility] 08/01/2022 09:48:44 Influenza, MDCK, quadrivalent, PF 7 completed Sarahi Peace NCMA null, [facility] 08/01/2022 09:48:45 OPV, trivalent 7 completed RODRIGO ThomasMA null, [facility] 08/01/2022 09:48:45 OPV, trivalent 7 completed Sarahi Peace NCMA null, [facility] 08/01/2022 09:48:45 OPV, trivalent 2 completed Sarahi Peace NCMA null, [facility] 08/01/2022 09:48:45 OPV, trivalent 7 completed Sarahi Peace NCMA null, [facility] 08/01/2022 09:48:45 HPV, quadrivalent 9 completed Sarahi Ryel, NCMA null, [facility] 08/01/2022 09:48:45 HPV, quadrivalent 9 completed Sarahi Ryel, NCMA null, [facility] 08/01/2022 09:48:45 HPV, quadrivalent 8 completed Sarahi Ryel, NCMA null, [facility] 08/01/2022 09:48:45 Hep B, adult 7 completed Sarahi Ryel, NCMA null, [facility] 08/01/2022 09:48:45 Hep B, adult 7 completed Sarahi Ryel, NCMA null, [facility] 08/01/2022 09:48:45 Hep B, adult 7 completed Sarahi Ryel, NCMA null, [facility] 08/01/2022 09:48:45 Hep B, adult 7 completed Sarahi Ryel, NCMA null, [facility] 08/01/2022 09:48:45 Hep B, adult 7 completed Sarahi Ryel, NCMA null, [facility] 08/01/2022 09:48:45 Hep B, adult 6 completed Sarahi Ryel, NCMA null, [facility] 08/01/2022 09:48:45 Hep A, adult 8 completed Sarahi Ryel, NCMA null, [facility] 08/01/2022 09:48:45 Hib (PRP-OMP) 8 completed Sarahi Ryel, NCMA null, [facility] 08/01/2022 09:48:45 Hib (PRP-OMP) 7 completed Sarahi Ryel, NCMA null, [facility] 08/01/2022 09:48:45 Meningococcal MCV4O 8 completed Sarahi Ryel, NCMA null, [facility] 08/01/2022 09:48:45 DTaP, 5 pertussis antigens 2 completed Sarahi Ryel, NCMA null, [facility] 08/01/2022 09:48:45 DTaP, 5 pertussis antigens 7 completed Sarahi Ryel, NCMA null, [facility] 08/01/2022 09:48:45 DTaP, 5 pertussis antigens 8 completed Sarahi Ryel, NCMA null, [facility] 08/01/2022 09:48:45 DTaP-Hib 7 completed Sarahi Ryel, NCMA null, [facility] 08/01/2022 09:48:45 DTaP-Hib 7 completed Sarahi Ryel, NCMA null, [facility] 08/01/2022 09:48:45 Influenza, split virus, quadrivalent, PF 1 completed Sarahi Ryel, NCMA null, [facility] 08/01/2022 09:48:45 Influenza, split virus, quadrivalent, PF 0 completed Sarahi Ryel, NCMA null, [facility] 08/01/2022 09:48:45 Influenza, split virus, quadrivalent, PF 2 completed Sarahi Ryel, NCMA null, [facility] 08/01/2022 09:48:45 Influenza, split virus, quadrivalent, PF 9 completed Sarahi Ryel, NCMA null, [facility] 08/01/2022 09:48:45 Past Encounters Encounter ID Performer Location Encounter Start Date Encounter Closed Date Diagnosis/Indication Diagnosis SNOMED-CT Code Diagnosis ICD10 Code Diagnosis IMO Codes Diagnosis Note [id number] Stephanie Melendez MD [facility] office [address] [place] [address] 11/11/2013 14:05:50 11/11/2013 15:26:31 Well child [id number] Alopecia 28379535 Scoliosis of lumbar spine 925392729 [id number] Vee oLpez MD [facility] office [address] [place] [phone] 02/16/2014 10:51:53 02/16/2014 13:31:46 Disorder of knee 120564701 Discussed with the patietn she has NO [...] see it hopefully will have answers. Alopecia [id number] Followed by [facility],will add FSH,LH today to check for PCOS. [id number] Stephanie Melendez MD [facility] office [address] [place] [phone] 03/01/2014 12:56:14 03/01/2014 15:27:49 Disorder of knee 017079029 Given patient's elevated ESR and history of alopecia, recommend follow-up with rheumatolo gist. Serum thyr oid stimulating hormone level outside reference range 884653481 Pt's low TSH in the context of normal values for T3 and T4 could indicate subclinica l hyperthyro idism or Solange' s hyperthroi dism. Pt instructed to f/u with TSH and T4 in March. [id number] Stephanie Melendez MD [facility] office [address] [place] [phone] 11/15/2014 08:04:16 11/15/2014 09:33:45 Well child 105817277 Alopecia areata 16587756 Requires a meningitis vaccination 399214939 [id number] Stephanie Melendez MD [facility] [employer] [address] [place] [phone] 11/20/2017 15:42:29 11/21/2017 12:09:27 Adult health examination 699878326 Z00.00 Irregular periods 954545 07 N92.6 Venereal d isease screening 231269599 Z11.3 Body mass index 30+ - obesity 827480695 Z68.39 Scoliosis deformity of spine 357422049 M41.9 Neck pain 17003221 M54.2 doing US all day [id number] MD jocelyn [facility] [address] [place] [address] 11/27/2017 08:25:33 11/27/2017 09:20:09 Gynecologic examination 21566045 Z01.411 Irregular intermenstrual bleeding 34954400 N92.1 I reviewed possible etiologies of irregular menstrual bleeding, advised blood work as ordered and pelvic ultrasound and follow up with me after all results available Body mass index 30+ - obesity 480964317 Z68.33 advised weight loss [id number] MD jocelyn [facility] [address] [phone] 12/04/2017 08:49:57 12/04/2017 10:31:32 Irregular periods 14982491 N92.6 All Agnes's blood tests and ultrasound are normal. As to this point, I don't see evidence of PCOS in blood work or ultrasound . Other endocrinol ogical possibilit ies are rule out at this time. I reviewed medical options to regulate her cycle such as cyclical progestin or combined estrogen progestin pills. She is not in a [facility] ip and does not need contracept ion at this time. She does not want to start on any medication . I then advised her to keep track of her menstrual diary and try to loose weight. I will follow up with her in 6 months. She is advised to call with any concern. Body mass index 30+ - obesity 416051526 Z68.34 advised weight loss [id number] Vee Lopez MD [facility] [employer] [address] [place] [phone] 03/30/2018 16:04:32 03/30/2018 16:36:25 Upper respiratory infection 75051804 J06.9 patient is a recovering from viral [...] week Fluid leve l behind tympanic membrane 062476290 H65.20 see above. Goiter 8969910 E04.9 slightly enlarged thyroid, I did not feel nodules on exam. 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 I placed referral for thyroid ultrasound to clarify. Asked patient to call if she has difficulty scheduling [id number] MD anna [facility] [address] [place] [phone] 06/29/2018 10:42:25 06/29/2018 13:04:16 Contraception care management 064857158 Z30.9 I discussed levonorges trel vs. copper IUDs vs. nexplanon with risks, benefits, efficacy, side effects of each options in detail. She wants to get Kyleena IUD. Timing of insertion and benefits of cytotec for cervical dilatation as well as side effects reviewed in detail. All question answer. Handout provided. Body mass index 30+ - obesity 321722842 Z68.34 advised weight loss [id number] MD Jam [facility]varez [facility] Family [address] [address] 01/04/2019 07:53:57 01/04/2019 08:43:55 Adult health examination 181531977 Z00.00 Body mass index 30+ - obesity 279608311 Z68.34 Adjustment disorder with anxious mood 35504202 F43.22 She has been going through a lot with her dad - terminal cancer. Her mother is out of work disabled due to health issues. She graduated from school and is working. 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 Screening for cardiovascular system disease 654396771 Z13.6 Venereal d isease screening 988283325 Z11.3 Screening for disorder 048831168 Z13.9 Thyroid nodule 724307017 E04.1 Acute sinusitis 45272664 J01.90 Pain in throat 308388256 R07.0 [id number] MD Jam Alvarez r[facility] Family [address] [phone] 3 06/25/2019 10:37:23 06/25/2019 11:21:30 Thyroid nodule 602407718 E04.1 Irregular periods 878821 07 N92.6 Venereal d isease screening 982747920 Z11.3 [id number] MD anna [facility] [address] [place] [address] 05/31/2021 08:10:20 05/31/2021 08:55:57 Gynecologic examination 53716788 Z01.419 Normal breast and pelvic exam today. F/u in one year for repeat. Screening for malignant neoplasm of cervix 123826553 Z12.4 Pap due Skin tag [id number] L91.8 Removed per pt request, She tolerate proceudre well. Care instructio ns provided, will check pathology Body mass index 30+ - obesity 825870039 Z68.34 [id number] MD ANNA [facility] - [address] [place] [address] 06/04/2022 09:36:23 06/04/2022 10:06:16 Gynecologic examination 44808976 Z01.419 Normal breast and pelvic exam today. F/u in one year for repeat. Irregular periods 467756 07 N92.6 Will r/o thyroid dysfunctio n, hormone abnormalit ies, diabetes. Body mass index 30+ - obesity 664856286 Z68.34 [id number] Stephanie Melendez MD [facility] [address] [place] [address] 07/17/2021 14:41:58 07/17/2021 15:39:36 Adult health examination 647484494 Z00.00 Screening for disorder 338171555 Z13.0 Endocrine/ metabolic screening 843553344 Z13.29 Screening for cardiovascular system disease 458599882 Z13.6 Hyperlipid emia screening 383204887 Z13.220 Venereal d isease screening 763306191 Z11.3 Alopecia areata 09060803 L63.8 Gastroesop hageal reflux disease 565560661 K21.9 Dermal mycosis 84539891 B35.3 [id number] Stephanie Melendez MD [facility] [address] [place] [address] 08/01/2022 08:39:41 08/01/2022 09:17:30 Adult health examination 679593236 Z00.00 Screening for disorder 222420147 Z13.0 Endocrine/ metabolic screening 825309264 Z13.29 Screening for cardiovascular system disease 684377072 Z13.6 Hyperlipid emia screening 576195347 Z13.220 Vitamin D deficiency 347 97639 E55.0 Tinea pedis 7471195 B35. 3 Body mass index 30+ - obesity 558290736 Z68.36 Scoliosis deformity of spine 931032710 M41.9 [id number] MD [facility] [address] [address] 07/18/2023 15:00:48 07/18/2023 15:34:34 Gynecologic examination 88221938 Z01.419 Normal breast and pelvic exam today. F/u in one year for repeat. Irregular periods 158827 07 N92.6 Will get US as it was not done last year. Patient requesting to have US done at her work. Will send records over. Vaginal discharge 643839 006 N89.8 Will r/o other causes of abnormal bleeding. [id number] Stephanie Melendez MD [facility] [address] [place] [address] 08/11/2023 08:14:59 08/11/2023 08:55:19 Adult health examination 752387860 Z00.00 Screening for disorder 678184419 Z13.0 Endocrine/ metabolic screening 973261042 Z13.29 Screening for cardiovascular system disease 668166129 Z13.6 Hyperlipid emia screening 663588605 Z13.220 Body mass index 30+ - obesity 587986060 Z68.38 Scoliosis deformity of spine 210272921 M41.85 Tendinitis of right hand 0854896932 5871388 M67.199 [id number] MD [facility] [address] [address] 08/14/2023 07:51:42 08/14/2023 10:25:28 Polycystic ovary syndrome 572466405 E28.2 I discussed with the patient that [...] on what she decides for management . [id number] MD ANNA [facility] [address] 08/06/2024 14:51:53 08/06/2024 16:00:28 Spasm of back muscles 012144427 M62.892 [id number] MD ANNA [facility] [address] 09/13/2024 14:13:33 09/13/2024 15:00:05 Screening for disorder 035747390 Z13.0 Endocrine/ metabolic screening 655398243 Z13.29 Screening for cardiovascular system disease 857651317 Z13.6 Hyperlipid emia screening 860639891 Z13.220 Polycystic ovary syndrome 722409383 E28.2 685889 LH/FHS noted 2.5 ratio Adult heal th examination 060013428 Z00.00 031471 Idiopathic scoliosis of lumbar spine 025563931 M41.26 3851761 Body mass index 30+ - obesity 553939109 E66.9 0764701 Health Concerns Section Related Observation LastModified by Organization Detai ls LastModified Time None Recorded Concern Status LastModified by Organization Details LastModified Time None Recorded Advance Directives Directive N: Payers Insurance Date Sequence Insurance Name Policy Number Policy Lewis Covered Member ID Lewis Member ID Guarantor Name 09/13/2024 2 [place] Agnes Lee [id number] Augie Lee 09/13/2024 1 [place] [id number] Agnes Lee [id number] Augie Lee 11/07/2017 1 [facility] PL[facility] (HMO) [id number] Ashli Lee [id number] Augie Lee 09/13/2024 2 [place] [facility] [place]MEDICAID) Agnes Lee [id number] Augie Lee 09/13/2024 1 UMR (PPO) [id number] Agnes Lee [id number] Augie Lee 09/13/2024 1 [employer]UE BENEFIT [place]MIN[place] [id number] [facility] [id number] Augie Lee Notes Date Note Type Note Provider Name and Address Organization Details Recorded Time 4 text/html Annual GYNReported by PatientHistoryFor history, patient reportsno gynecologic complaintsandno change in interval history.Genitourinary symptomsFor menstrual cycle, patient reportsirregular cycle intervalsandunexplained vaginal bleeding. For urinary symptoms, patient reportsno hematuria. For vulva, patient reportsno genital lesion. 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 She is on Minoxidil for alopecia.No longer taking vitamin D daily. 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 Single. Last pap 2021 nl Contraception: AbstinenceCycles are 5 weeks usually, irregular with random spotting.Had labs last year to r/o PCOS or other causes of cycle irregular and all were normal.No US done. Patient agreeable to US. Fco Mondragon CNP [address] [place], [address], [facility] [place] [facility]. 07/20/2023 13:49:57 4 text/html Pt is here for her physical exam.PAP 05/31/21 by Fco ROS:Seen by SHIPWRIGHT APPRENTICE - recent US showed polycystic ovaries.a1c was NL. Pt needs to upload in the system. She has to go to [employer]. C/O R hand pain at palm and fingers.C/O L lumbar pain under the deformity of scoliosis. 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 Problem list:Eczema. Clobetasol cream improves the eczema. New depot agent at [facility], Dr. Smith. On minoxidil. She has followed with depot agent from [facility] for years, Dr. Kate Rojas. MED: topical clobetasol cream.Alopecia - stable on minoxidilUS thyroid: several small nodules, benign, 04/2018. Vit D def.Scoliosis. Wore a brace when younger. Stephanie Melendez MD [address] [place], [address], [facility] [place]. 08/11/2023 09:05:42 4 text/html Agnes presents today for management of PCOSRecent lab work: 2022 nl. A1C in 07/2023 was 5.4.Ultrasound: 08/06/23- ovaries show bilateral polycystic appearance measuring volume 14 ml and 7 ml respectivelyContraception: AbstinenceCycles are 5 weeks usually, irregular with random spotting.Had labs last year to r/o PCOS or other causes of cycle irregular and all were normal.BMI 38.On spironolactone for alopecia Current regimen: NoneDesires : NoFor anabaptist reasons, patient cannot take any control or anything that will control or manipulate ovulation. Denies abdominal pain, bloating, acne, unusual hair growth. This is a Telehealth visit, via modality teams .Patient understands the risks, benefits and limitations of this type of visit.Patient consents for this visit.This type of visit is being utilized as it was deemed higher risk for patient to come to office given the current risk of COVID-19/coronavirus infection. During this encounter the patient is located in their home. At the time of this encounter the Physician is in [facility] located at ___[address] [place] [address] . Visit Began: 0800amVisit Ended: 0817am 50% or greater of the time was spent on counselling and coordination of care.The following people were with the patient at time of this Telehealth visit: Patient only . Fco Mondragon CNP [address] [place] [address], [phone], [facility]. 08/14/2023 08:45:09 5 text/html mid to high left high to mid back pain started n fridayis an ultrasound techpt for dr melvin minoxidil and spironolactone from derm for hair lossmuscle is sore left of the inter scapular lineno injury rash Halie Ferrera MD [address] [place] [address], [phone], [facility]. 08/06/2024 16:04:06 5 text/html Pt is here for her physical exam.PAP 05/31/21 by Fco. Pt has appointment in 10/12/24 ROS:lost 42 lbs (eating better and working out 2x a week). Diagnosed PCOS by pelvic US. A1c was NL. Pt needs to upload in the system. She has to go to [employer]. On spironolactone and minoxidil from her DERM RUE tendinitis. Cortisone injection was helpful. Seen by work doctor. R upper back pain and tightness at the medial scapula. Known scoliosis but missed the call about the referral to Dr. Quigley last year. Referring again. Problem list:Eczema. Clobetasol cream improves the eczema. New depot agent at [facility], Dr. Smith. On minoxidil. She has followed with depot agent from [facility] for years, Dr. Kate Rojas. MED: topical clobetasol cream. Alopecia - stable on minoxidil. Follows with Ashley Smith. US thyroid: several small nodules, benign, 04/2018. Vit D def. Scoliosis. Wore a brace when younger. Pelvic US showed polycystic ovaries. Scoliosis. 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 Stephanie Melendez MD [address] [place] [address], [phone], [facility] 09/13/2024 15:05:03 OBGyn Episode No OBEpisode recorded.
--- OUTSIDE RECORDS SUMMARY | 2025-02-07 19:15 | XMS_ITS | Clinical Summary ---
Author Organization [facility] Address [address] [place], [place] [phone] Phone Care Team Providers Care Reprint Sorter Name Role Phone Lizbeth Ballard MD Primary [...] 11/01/1997, Additional history exists Influenza Vaccines (#1) 2024 COVID-19 Vaccine ( season) 2024 HIB Vaccines Completed 07/29/1997, 10/13, 1996, Additional [...] age to complete this topic Care Teams Reprint Sorter Relationship Specialty Start Date End Date Lizbeth Ballard MD [address] [place] [address] [address] [place] [address] PCP - General 08/10/18
--- OUTSIDE RECORDS SUMMARY | 2025-02-07 19:15 | XMS_ITS | Encounter Summary ---
Author Organization [facility] Address [address] [place] [address] Phone Care Team Providers Care Flight Line Mechanic Name Role Phone Lizbeth Ballard MD Primary Care Provider Encounter Details Date Type Department Care Team (Late st Contact Info) Description 02/24/2017 Conversion Encounter Gil Shook MD [address] [place] [address] Gil Shook MD Social History Tobacco Use [...] on filedocumented in this encounter Care Teams Flight Line Mechanic Relationship Specialty Start Date End Date Lizbeth Ballard MD [address] [place] [address] PCP - General 08/10/18 documented as of this encounter
--- OUTSIDE RECORDS SUMMARY | 2025-02-07 19:15 | XMS_ITS | Clinical Summary ---
Author Organization [facility] Address [address] [place] [address] Care Team Providers Care Event Marketing Assistant Name Role Phone Stephanie Calderón MD Primary Care Provider [phone] Allergies No known active allergies Medications cholecalciferol (VITAMIN D3) 2,000 unit capsule 2 Active ketoconazole-hy drocortisone 2-2.5 % cream 2 Active yh-hr-bjxm-FA-C a carb-vit K (Women's Multivitamin) 18 mg-400 [...] Administration Dates Next Due Covid-19, Pfizer, mRNA, [place] valent, PF 30 mcg/0.3 mL dose (for [...] 1 mL IM 02/07/2017,11/06/2016,10/02/2016,1996,1996,1996 Influenza, Injectable, Madin [place] Canine Kidney, Preservative Free, Quadrivalent 01/26/2018,02/18/2017 Influenza, [...] Care Team (Late st Contact Info) Description 03/29/2025 9:45 AM EST Office Visit [facility] 4th Floor [address] [facility], [place] [address] Bridge Ironworker Helper: Ashley Vargas MD [address] [place] [address] Health Maintenance Due Date Last Done Comments HIV Screening 1996 Hepatitis C Screening 1996 Pap Smear 1996 Alcohol/Substance Use Screening 04/14/2024 Depression Screening and Follow-Up 04/14/2024 Social Drivers of Health Annual Screening 04/14/2024 COVID-19 Vaccine (2024- season) 2024 02/04/2024, 02/27/2023, 01/10/2021, Additional history exists Influenza Vaccine (#1) 2024 , 01/16/2023, 01/24/2022, Additional history exists DTaP,Tdap,and Td Vaccines (8 - Td or Tdap) 11/21/2027 11/20/2017, 09/18/2007, 08/20/2001, Additional history exists RSV Vaccine (60+ years old and patients) (1 - 1-dose 75+ series) 2071 Varicella Vaccines Completed 11/02/2010, 06/23/2001 Hepatitis B Vaccines Completed 02/07/2017, 02/07/2017, 11/06/2016, Additional history exists Pneumococcal Vaccine: Pediatric (0-5 Years) and At-Risk Patients (6-50 Years) Aged Out No longer eligible based on patient's age to complete this topic Insurance [employer] Care Teams Event Marketing Assistant Relationship Specialty Start Date End Date Stephanie Calderón MD PCP - General Family Medicine 07/23/21
--- OUTSIDE RECORDS SUMMARY | 2025-02-07 19:15 | XMS_ITS | Encounter Summary ---
Author Organization [facility] Address [address] [place] [address] Care Team Providers Care Cabinet Worker Name Role Phone Stephanie Calderón MD Primary Care Provider [phone] Reason for Visit * Reason Onset Date Comments CS - Apppointment 03/19/2022 Encounter Details Date Type Department Care Team (Late st Contact Info) Description 03/19/2022 Telephone [facility] Central Scheduling Department [address] [place] [address] Telephone Intake, Staff CS - Apppointment Social [...] Description 03/29/2025 9:45 AM EST Office Visit [facility] [address]th [address] [place] [address], [place] [address] Jamb Cutter: Ashley Vargas MD [address] [place] [address] documented as of this encounter Visit Diagnoses Not on filedocumented in this encounter Care Teams Cabinet Worker Relationship Specialty Start Date End Date Stephanie Calderón MD PCP - General Family Medicine 07/23/21 documented as of this encounter
== END 2025-02-07 17:00 | disposition home or self-care (01) ==
PROVIDERS: PCP Family Medicine; Visit Provider Family Medicine
DX: N89.8 Other specified noninflammatory disorders of vagina (principal)
CPT/HCPCS: 99213